=== PATIENT | female | born 1945 | race Caucasian/White ===

== ENCOUNTER 2017-08-26 17:30 | Inpatient (IN) | payer OTHER ==
[~2017-08-26] VITALS: Ht 165.1 cm; Wt 84.1 kg
--- NOTE | ~2017-08-26 | EEG ---
[facility] [place] [address] ELECTROENCEPHALOGRAM Name: NOA AMARALDRA Daigle Room #: 436-P ADM IN M.R.#: [id number] Admission: 08/26/17 Attend Phys: Humble Linares MD Discharge: Date of : 41 Report #: [id number] THIS REPORT FOR: //name// CC: Humble Linares DATE OF SERVICE: 08/27/2017 This patient is being evaluated for possibility of dementia. EEG was done by placing the electrodes by standard 10/20 system of electrode placement. Both referential and sequential montages were used for recording. Background activity in this patient's EEG is about 10 Hz and 30 microvolts. It is a symmetrical activity. Photic stimulation was unremarkable. Throughout the record, no active epileptiform activity was noticed. A lot of artifact is present. IMPRESSION: In spite of the patient's history of altered mental status, the EEG appeared unremarkable. Thank you very much for this referral. <ELECTRONICALLY SIGNED> By: Jordan Norton MD 08/28/17 [id number] Jordan Norton MD /nt
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
--- NOTE | ~2017-08-26 | EKG ---
[address] [address] ELECTROCARDIOGRAM REPORT Name: KG AMARAL Room #: 436-P ADM IN M.R.#: [id number] Admission: 08/26/17 Attend Phys: Humble Linares MD Discharge: Date of : 41 Report #: [id number] THIS REPORT FOR: //name// [facility] Test Date: 2017-08-29 Test Time: 06:20:29 Pat Name: KG AMARAL Department: Room: 436 P Gender: F Client Delivery Manager: CHEYANNE : 1945 Requested By: Humble Linares Order Number: [id number] MD: Nikita Dorman Measurements Intervals [place] Rate: 72 P: 68 CA: 160 QRS: 20 QRSD: 119 T: 36 QT: 404 QTc: 443 Interpretive Statements Sinus rhythm Nonspecific intraventricular conduction delay Nonspecific repol abnormality, anterior leads Compared to ECG 06/22/2016 16:47:01 Early repolarization now present ST (T wave) deviation no longer present Possible ischemia no longer present Electronically Signed On 08-29-2017 8:14:33 [employer] by Nikita Dorman [email or web address] <ELECTRONICALLY SIGNED> By: Nikita Dorman MD 08/29/1714 9 9 Nikita Dorman MD /EPI
--- NOTE | ~2017-08-26 | HC ---
[facility] [place] [address] CONSULTATION Name: CRISTINKG S Room #: 436-P ADM IN M.R.#: [id number] Admission: 08/26/17 Attend Phys: Humble Linares MD Discharge: Date of : 41 Report #: [id number] THIS REPORT FOR: //name// CC: Humble Linares DATE OF SERVICE: 08/27/2017 This is a 71-year-old female patient who has a large record. I reviewed the patient's record and this is a pretty unusual and bizarre history which this patient had. This patient has been admitted to [facility] as well as [facility]. She had some history of dementia, but I am not sure about the history in this patient, although at one time, I had thought this patient may have had dementia also. She said she woke up confused. I am not sure what her baseline is. She is going to be on hospice. There is some question whether she wants to have the testing done or not done. She keeps flip flopping in that. REVIEW OF SYSTEMS: Positive that at one time, she was admitted with seizure. At one time, it looks like she had dementia. There is some history of subclavian steal syndrome, cholecystectomy, hypothyroidism, depression, fibromyalgia. She also has a history of disk problem. This was her relevant 14-point review of system. PAST MEDICAL HISTORY: Positive for seizure, but also appeared to be dementia. FAMILY HISTORY: Negative for early age stroke. SOCIAL HISTORY: She says she does not drink any alcohol. PHYSICAL EXAMINATION: Difficult. She does not know what month it is. She does not know what day it is. She says it is May, but her speech looks intact. Cranial nerve examination 2-12, she does not cooperate and I cannot tell, but I do not see any focal abnormality. It looks like she can move all 4 extremities and she says she can feel things. Her reflexes are symmetrical, but she said she cannot walk. She did not cooperate with the fundus examination. She is moderately built individual who does not have any dysmorphic features of eyes, ears and face. She can see and hear adequately. Her pulses are somewhat difficult to feel. She has no edema, cyanosis or jaundice. Cardiac examinations appear unremarkable. Her blood pressure is 110/65, respirations 14, pulse is 82, temperature is normal. LABORATORY DATA: Her white count is 6.7. She did not have initially any imaging study, but then looks like she is agreeable for that. IMPRESSION: Pretty difficult to form in this patient. The patient may have had another seizure or may have developed dementia or pseudodementia. She needs further workup if she will allow that. [address] [address] CONSULTATION Name: KG AMARAL Room #: 436-P [facility] IN ..#: [id number] Admission: 08/26/17 Attend Phys: Humble Linares MD Discharge: Date of : 41 Report #: [id number] RECOMMENDATION: I will recommend: 1. MRI. 2. EEG. 3. To complete the workup, we may even have to do spinal tap in this patient. 4. Psych consult, which is pending. 5. We will work with her and see how much workup she allows. Thank you very much for this referral. <ELECTRONICALLY SIGNED> By: Jordan Norton MD 08/28/17 1114 1521 1549 Jordan Norton MD /nt
[~2017-08-26 17:30] MED LIST: ACCUNEB SO1.25 MG/1 INH; ACCUNEB0.63 MG/3 INH; ADULT LOW DOSE81 MG PO; ADULT SUPPOSIT1 EACH RECTAL; ALBUTEROL2.5 MG/31 INH; ALPRAZOLAM 0.50.5 M1 PO; AMBIEN 10 MG TA10 MG; AMBIEN 10 MG TA10 MG PO; AMITRIPTYLINE H25 M2 PO; AMITRIPTYLINE H50 M2 PO; ASPIRIN EC81 M1 PO; AVAPRO300 MG; AVAPRO300 MG PO; BASE, PCCA RAPID1 GM PO; BYSTOLIC 5 MG5 M1 PO; CELEBREX 200 M200 MG PO; CIPROFLOXIN HC2.5 M1 OPHTHALMIC; CLOBETASOL PROP50 M1 TOP; CLOBETASOL PROP60 G3; COMBIVENT IH; COMPAZINE10 MG PO; COUMADIN 10MG T10 M1 PO; COUMADIN 2.5MG2.5 M1 PO; COUMADIN 5 MG TA5 M1; COUMADIN 5 MG TA5 M1 PO; COZAAR100 MG PO; CYMBALTA; CYMBALTA60 MG PO; DESYREL100 MG; DESYREL50 MG PO; DOXYCYCLINE 10100 M1 PO; DUCOLAX PO; DULCOLAX; EQUATE STOOL SOFTNER PO; FENTANYL PA12 MCG/HR TP; FENTANYL PA25 MCG/HR TRANSDERM; FLAGYL500 M1 PO; FLOMAX0.4 MG PO; FOLIC ACID1 MG; FOLIC ACID1 MG PO; FUROSEMIDE 40 M40 M1 PO; GLUCOPHAGE500 MG PO; HYDROCHLOROTHIA25 M1 PO; HYDROCODON-ACE1 EAC5 PO; HYDROCODON-ACE1 EAC7; HYDROXYZINE PAM25 M1 PO; IMURAN 50MG TAB50 M1 PO; INDERAL40 MG PO; IPRAT-ALBUT 0.5-3 ML INH; KLOR-CON 10 ER10 MEQ PO; KLOR-CON 1010 MEQ PO; KLOR-CON M2020 MEQ PO; LACTULOSE PO; LASIX 40 MG TAB40 M2 PO; LEVOTHYROXIN0.025 MG PO; LISINOPRIL20 MG PO; LORTAB 5 MG/5001 TAB PO; LOSARTAN-HCTZ1 EAC1 PO; METFORMIN HCL500 MG PO; NABUMETONE 750750 M1; NABUMETONE 750750 M1 PO; NASONEX17 GM; NASONEX17 GM NS; NEURONTIN 300M300 M2 PO; NICOTINE TRANSD14 M1 TRANSDERM; OMEPRAZOLE20 M2 PO; ORAL ANALGESIC9 GM TOP; OSTERA TABLET1 EACH PO; OXYGEN MISCELL; PRAVACHOL40 MG PO; PRILOSEC 20 MG20 MG PO; PRISTIQ100 MG PO; PROAIR HFA8.5 GM; PROAIR HFA8.5 GM IH; PROMETHAZINE12.5 M1 PO; PROPRANOLOL 1010 M1 PO; PROTONIX40 M1 PO; PROTONIX40 M2 PO; QUETIAPINE FUM100 MG; REGLAN 5 MG TAB5 MG PO; REMICADE 1100 MG/VIA IV; SEROQUEL 100 M100 M1 PO; SEROQUEL 25 MG25 M1 PO; SEROQUEL XR400 M1 PO; SEROQUEL400 MG PO; STELARA90 MG/1 ML SQ; STOOL SOFTENER1 EAC2 PO; STOOL SOFTENER50 MG PO; SYMBICORT160 MCG/4. INH; TAMSULOSIN HCL0.4 M1 PO; TENORMIN50 MG PO; TOPAMAX 25 MG T25 M1 PO; TOPROL XL50 MG; TRAMADOL 50 MG50 MG PO; TRAZODONE 100100 MG PO; TRAZODONE HCL50 MG PO; TRIAMCINOLONE 080 G3; TYLENOL325 MG PO; VICODIN 5-5001 EACH PO; VISTARIL 25 MG25 M1 PO; WOMEN'S LAXATIVE5 M1 PO; [UNRECOGNIZED DRUG - OTHER]; [UNRECOGNIZED DRUG - OTHER]; [UNRECOGNIZED DRUG - OTHER] PO
[2017-08-26 17:31] VITALS: BP 101/56
[2017-08-26 18:51] LABS: URINE BILIRUBIN NEGATIVE (Negative); URINE BLOOD NEGATIVE (Negative); URINE CLARITY SL CLOUDY; URINE COLOR YELLOW; URINE GLUCOSE-RANDOM* NEGATIVE (Negative); URINE KETONES TRACE (Negative); URINE NITRITE-REFLEX NEGATIVE (Negative); URINE PROTEIN (DIPSTICK) NEGATIVE (Negative); URINE SPECIFIC GRAVITY >= 1.030 (1.005-1.035); URINE UROBILINOGEN 0.2 E.U./dl (0.2-1.0)
[2017-08-26 18:56] LABS: URINE LEUKOCYTES-REFLEX TRACE (Negative)
[2017-08-26 20:21] LABS: ABSOLUTE NEUTROPHILS 2.7 thou/uL (1.4-8.2); EOSINOPHILS 5.8 % (0.0-3.0); HEMATOCRIT 37.4 % (37.0-47.0); HEMOGLOBIN 12.4 gm/dL (12.0-15.0); LYMPHOCYTES 47.2 % (24.0-44.0); MCH 27.3 pg (26.0-34.0); MCHC 33.2 g/dL (28.0-37.0); MCV 82.1 fL (80.0-100.0); MONOCYTES 5.5 % (1.0-8.0); PLATELET COUNT 229 thou/uL (150-400); POLYS 40.5 % (36.0-66.0); RBC 4.55 mil/uL (4.20-5.00); RDW 16.5 % (10.5-14.5); WBC 6.7 thou/uL (4.0-11.0)
[2017-08-26 20:28] LABS: ANION GAP 9 mmol/L (7-16); BUN 30 mg/dL (7-18); CALCIUM 9.1 mg/dL (8.5-10.1); CHLORIDE 102 mmol/L (98-107); CO2 25 mmol/L (21-32); CREATININE 1.7 mg/dL (0.6-1.0); GLUCOSE 109 mg/dL (74-106); POTASSIUM 4.9 mmol/L (3.5-5.1); SODIUM 136 mmol/L (136-145)
[2017-08-26 20:34] LABS: ALBUMIN 3.4 g/dL (3.4-5.0); DIRECT BILIRUBIN < 0.1 mg/dL (<0.1-0.3); SGOT 23 U/L (15-37); SGPT 34 U/L (30-65); TOTAL BILIRUBIN 0.3 mg/dL (<0.1-1.0)
[2017-08-26 23:14] LABS: BE(vivo) 0.3 mmol/L (-2 to +3); HCO3 25.1 mmol/L (22.0-26.0); PCO2 41.2 mmHg (35.0-45.0); PO2 73.7 mmHg (80.0-100.0); pH 7.402 (7.360-7.450); sO2 94.9 % (92.0-98.0)
[2017-08-26 23:44] VITALS: BP 123/79
[2017-08-27 10:27] VITALS: BP 110/65
[2017-08-27 16:00] VITALS: BP 110/65
[2017-08-27 16:58] LABS: TSH 1.814 uIU/mL (0.358-3.740)
[2017-08-27 21:00] VITALS: BP 129/72
[2017-08-28 04:00] VITALS: BP 114/71
[2017-08-28 04:10] VITALS: BP 146/57
[2017-08-28 08:00] VITALS: BP 129/58
[2017-08-28 08:39] LABS: ALBUMIN 3.6 g/dL (3.4-5.0); CALCIUM 9.5 mg/dL (8.5-10.1); CREATININE 1.2 mg/dL (0.6-1.0); POTASSIUM 4.5 mmol/L (3.5-5.1); TOTAL BILIRUBIN 0.7 mg/dL (<0.1-1.0); TOTAL PROTEIN 7.3 g/dL (6.4-8.2)
[2017-08-28 09:22] LABS: INR 1.2; PROTIME 12.4 Seconds (9.3-11.4)
[2017-08-28 16:05] VITALS: BP 148/76
[2017-08-28 19:37] VITALS: BP 153/60
[2017-08-29 04:59] VITALS: BP 145/80; BP 153/80
[2017-08-29 07:18] LABS: ALBUMIN 3.4 g/dL (3.4-5.0); CALCIUM 8.7 mg/dL (8.5-10.1); CREATININE 1.1 mg/dL (0.6-1.0); TOTAL BILIRUBIN 0.5 mg/dL (<0.1-1.0); TOTAL PROTEIN 6.8 g/dL (6.4-8.2)
[2017-08-29 08:00] VITALS: BP 155/93
[2017-08-29 09:22] LABS: HEMATOCRIT 36.3 % (37.0-47.0); HEMOGLOBIN 11.7 gm/dL (12.0-15.0); MCH 27.1 pg (26.0-34.0); MCHC 32.3 g/dL (28.0-37.0); MCV 83.8 fL (80.0-100.0); RBC 4.33 mil/uL (4.20-5.00); RDW 16.7 % (10.5-14.5); WBC 3.5 thou/uL (4.0-11.0)
[2017-08-29 09:44] LABS: APTT 29.9 Seconds (24.5-32.8); INR 1.1; PROTIME 11.6 Seconds (9.3-11.4)
[2017-08-29 12:55] LABS: CSF CLARITY CLEAR; CSF COLOR COLORLESS; VOLUME 9 ml
[2017-08-29 13:04] LABS: CSF GLUCOSE 64 mg/dL (40-70); CSF PROTEIN 34 mg/dL (15-45)
[2017-08-29 13:16] LABS: CSF RBC 0 /mm3; CSF WBC 1 /mm3 (0-10)
[2017-08-29 15:52] VITALS: BP 169/76
[2017-08-29 20:00] VITALS: BP 155/95
[2017-08-30 00:09] LABS: SERUM ALBUMIN 4.5 g/dL (3.5-4.8)
[2017-08-30 04:41] VITALS: BP 151/94
[2017-08-30 07:20] VITALS: BP 168/77
[2017-08-30 15:15] VITALS: BP 177/87
[2017-08-30 20:47] VITALS: BP 177/81
[2017-08-31 05:00] VITALS: BP 149/79
[2017-08-31 07:37] VITALS: BP 129/61
[2017-08-31 16:00] VITALS: BP 163/70
[2017-08-31 19:36] VITALS: BP 182/65
[2017-09-01 04:01] VITALS: BP 101/50
[2017-09-01 06:16] VITALS: BP 103/49
[2017-09-01 16:25] VITALS: BP 155/70
[2017-09-01 19:50] VITALS: BP 150/70
[2017-09-02 07:56] LABS: PROTIME 10.1 Seconds (9.3-11.4)
[2017-09-02 19:11] LABS: GLYCOHEMOGLOBIN (HGB A1C) 5.4 % (4.8-5.6)
[2017-09-02 21:45] VITALS: BP 146/71
[2017-09-03 04:52] VITALS: BP 141/85
[2017-09-03 08:00] VITALS: BP 153/79
[2017-09-03 16:27] VITALS: BP 152/64
[2017-09-03 19:09] VITALS: BP 155/73
[2017-09-03 20:27] VITALS: BP 139/82
[2017-09-04 05:07] VITALS: BP 142/71
[2017-09-04 09:54] VITALS: BP 125/56
[2017-09-04 15:23] VITALS: BP 147/42
[2017-09-04 20:28] VITALS: BP 173/68
[2017-09-05 05:19] VITALS: BP 102/57
[2017-09-05 05:21] LABS: HEMATOCRIT 41.2 % (37.0-47.0); HEMOGLOBIN 13.1 gm/dL (12.0-15.0); MCH 26.8 pg (26.0-34.0); MCHC 31.7 g/dL (28.0-37.0); MCV 84.5 fL (80.0-100.0); RBC 4.87 mil/uL (4.20-5.00); RDW 16.4 % (10.5-14.5); WBC 10.8 thou/uL (4.0-11.0)
[2017-09-05 05:25] LABS: INR 1.2; PROTIME 11.8 Seconds (9.3-11.4)
[2017-09-05 05:33] LABS: ALBUMIN 3.4 g/dL (3.4-5.0); CALCIUM 9.5 mg/dL (8.5-10.1); CREATININE 1.1 mg/dL (0.6-1.0); POTASSIUM 4.2 mmol/L (3.5-5.1); TOTAL BILIRUBIN 0.3 mg/dL (<0.1-1.0); TOTAL PROTEIN 7.2 g/dL (6.4-8.2)
[2017-09-05 08:05] VITALS: BP 131/59
[2017-09-05] MEDS ORDERED: TAMSULOSIN HCL0.4 MG PO (13:21)
[2017-09-05] MEDS ORDERED: ATENOLOL 50MG T50 MG PO (13:21)
[2017-09-05] MEDS ORDERED: TRAMADOL 50 MG50 MG PO (13:25)
[2017-09-05] MEDS ORDERED: NEURONTIN 300300 M1 PO (13:28)
[2017-09-05] MEDS ORDERED: TRAZODONE HCL50 MG PO (13:29)
[2017-09-05] MEDS ORDERED: QUETIAPINE FUM400 M1 PO (13:31)
[2017-09-05] MEDS ORDERED: BENZONATATE100 MG PO (13:33)
[2017-09-08 20:06] LABS: CSF IgG 1.9 mg/dL (0.0-8.6)
[2018-02-23] MEDS ORDERED: LISINOPRIL20 MG PO (14:08)
[2018-02-23] MEDS ORDERED: ALBUTEROL2.5 MG/31 INH (14:12)
[2018-02-23] MEDS ORDERED: LAXATIVE25 MG PO (14:14)
[2018-02-23] MEDS ORDERED: TYLENOL325 MG PO (14:14)
[2018-02-23] MEDS ORDERED: LINZESS290 MCG PO (14:15)
[2018-02-23] MEDS ORDERED: TENORMIN50 MG PO (14:56)
[2018-02-23] MEDS ORDERED: SYNTHROID25 MC1 PO (14:58)
[2018-02-23] MEDS ORDERED: FLOMAX0.4 MG PO (14:59)
[2018-02-23] MEDS ORDERED: TRAZODONE HCL100 MG PO (15:02)
[2018-05-13] MEDS ORDERED: PROTONIX40 M1 PO (18:55)
[2018-05-13] MEDS ORDERED: IPRAT-ALBUT 0.5-3 ML INH (18:56)
[2018-05-13] MEDS ORDERED: COLACE 100 MG100 MG PO (18:58)
[2018-05-13] MEDS ORDERED: CONSTULOSE10 GM/152 PO (18:59)
== END 2017-09-05 15:25 | DRG 885 ==
LOC: ER 17:30 → EROBS 20:14 → 4S 20:14 → EROBS 20:18 → 4S 08-27 16:53
PROVIDERS: Emergency Medicine; Internal Medicine; Psychiatry & Neurology Neuromuscular Medicine
PROC: 009U3ZX Drainage of Spinal Canal, Percutaneous Approach, Diagnostic (ICD-10-PCS; principal; 2017-08-29)
PROC: B01B1ZZ Fluoroscopy of Spinal Cord using Low Osmolar Contrast (ICD-10-PCS; principal; 2017-08-29)
DX: F31.9 Bipolar disorder, unspecified (principal); G30.9 Alzheimer's disease, unspecified; E86.0 Dehydration; F41.9 Anxiety disorder, unspecified; E03.9 Hypothyroidism, unspecified; M19.90 Unspecified osteoarthritis, unspecified site; I12.9 Hypertensive chronic kidney disease with stage 1 through stage 4 chronic kidney disease, or unspecified chronic kidney disease; F01.50 Vascular dementia, unspecified severity, without behavioral disturbance, psychotic disturbance, mood disturbance, and anxiety; I48.91 Unspecified atrial fibrillation; J44.9 Chronic obstructive pulmonary disease, unspecified; G89.4 Chronic pain syndrome; E11.22 Type 2 diabetes mellitus with diabetic chronic kidney disease; G47.00 Insomnia, unspecified; M48.02 Spinal stenosis, cervical region; F22 Delusional disorders; L40.9 Psoriasis, unspecified; Z66 Do not resuscitate; F02.80 Dementia in other diseases classified elsewhere, unspecified severity, without behavioral disturbance, psychotic disturbance, mood disturbance, and anxiety; Z88.1 Allergy status to other antibiotic agents; Z88.0 Allergy status to penicillin; Z88.8 Allergy status to other drugs, medicaments and biological substances; Z88.2 Allergy status to sulfonamides; Z87.891 Personal history of nicotine dependence; Z90.49 Acquired absence of other specified parts of digestive tract; Z90.13 Acquired absence of bilateral breasts and nipples; Z86.718 Personal history of other venous thrombosis and embolism; Z90.710 Acquired absence of both cervix and uterus; Z86.73 Personal history of transient ischemic attack (TIA), and cerebral infarction without residual deficits; Z79.899 Other long term (current) drug therapy; N18.3 Chronic kidney disease, stage 3 (moderate)
CPT/HCPCS: 10100; 10102

== ENCOUNTER 2017-11-29 21:48 | Emergency (ER) | payer OTHER ==
[~2017-11-29] VITALS: Ht 165.1 cm; Wt 81.7 kg
[~2017-11-29 21:48] MED LIST changes: +ATENOLOL 50MG T50 MG PO; +BENZONATATE100 MG PO; +NEURONTIN 300300 M1 PO; +QUETIAPINE FUM400 M1 PO; +TAMSULOSIN HCL0.4 MG PO
[2017-11-29] MEDS ORDERED: COUMADIN 2.5MG2.5 M1 PO (22:13)
[2017-11-30] MEDS ORDERED: KRISTALOSE20 GM PO (00:51)
[2017-11-30 01:11] VITALS: BP 154/85
== END 2017-11-30 01:00 | disposition home or self-care (01) ==
LOC: ER 21:48
DX: R09.89 Other specified symptoms and signs involving the circulatory and respiratory systems (principal); K21.9 Gastro-esophageal reflux disease without esophagitis; E11.9 Type 2 diabetes mellitus without complications; I10 Essential (primary) hypertension; M79.7 Fibromyalgia; E03.9 Hypothyroidism, unspecified; Z90.49 Acquired absence of other specified parts of digestive tract; Z90.710 Acquired absence of both cervix and uterus; Z87.891 Personal history of nicotine dependence; Z88.1 Allergy status to other antibiotic agents; Z88.0 Allergy status to penicillin; Z88.2 Allergy status to sulfonamides

== ENCOUNTER → 2018-02-25 | Outpatient (CLI) | payer OTHER ==
[~2018-02-25] VITALS: Ht 165.1 cm; Wt 86.2 kg
[~2018-02-25] MED LIST changes: +KRISTALOSE20 GM PO; +LAXATIVE25 MG PO; +LINZESS290 MCG PO; +SYNTHROID25 MC1 PO; +TRAZODONE HCL100 MG PO
--- NOTE | ~2018-02-25 | PATH ---
[facility] [address] [place] [address] PATHOLOGY RPT PROCEDURE Name: TORI AMARLA Room #: REG STEPHANIA Kaufman#: [id number] Admission: 02/25/18 Date of : 41 Discharge: Report #: [id number] Path Case #: [id number] [facility] Accession Number: [id number] . 01 Material submitted: . DISTAL ESOPHAGUS BIOPSY . 01 Clinical history: . Pre-OP DX: Dysphagia Post-OP DX: Rule out Murphy's esophagus . 02 Diagnosis: Gastroesophageal mucosa, distal esophagus rule out Murphy's, endoscopic biopsy: - Gastric cardia-type mucosa with moderate chronic inflammation. - Negative for intestinal metaplasia (Murphy's metaplasia) or dysplasia. - Squamous mucosa with mild esophagitis and changes compatible with reflux esophagitis. (IUV:pit; 02/26/2018) QTP/02/26/2018 . 02 Electronically signed: . Ariana Obrien MD, Pathologist NPI- [id number] . 01 Gross description: . Received in formalin labeled "Alison Amarala, distal esophagus BX, rule out Murphy's," are 2 segments of lakhani soft tissue measuring 0.7 x 0.3 x 0.2 cm in aggregate dimensions and ranging from 0.3 to 0.4 cm in maximum dimension. The specimen is submitted entirely in cassette A1. (TSD; 02/25/2018) TOB/TOB . 02 Pathologist provided ICD-10: K21.0 . 02 CPT . 012426 Performed at: [address], [place], [place] [id number] MD Harvey Peck MD Phone: [phone] Performed at: [address] [id number] MD Ariana Obrien MD Phone: [phone]
--- NOTE | ~2018-02-25 | P ---
[facility] [place] [address] PROCEDURE REPORT Name: KG AMARAL [id number] Admission: 02/25/18 Attend Phys: Alberto Bhakta Discharge: Date of : 43 Report #: [id number] THIS REPORT FOR: //name// CC: Alberto Linares MD DATE OF SERVICE: 02/25/2018 PROCEDURE PERFORMED: Upper endoscopy with biopsies and esophageal dilation. HISTORY OF PRESENT ILLNESS: The patient is a 72-year-old female seen in the office on 02/10/2018, with complaints of chronic constipation, also with a history of gastroesophageal reflux disease and intermittent dysphagia, especially to pills. Plan is for upper endoscopy. She currently takes Protonix on a daily basis. She is also on Coumadin. This has been held. Her INR today is 1.0. PROCEDURE: The risks and benefits of the procedure were explained to the patient, those risks including, but not limited to bleeding, perforation and the risk of sedation. She understood these risks and gave informed consent. Sedation was given using propofol per anesthesia. Next, using a standard Olympus upper endoscope, the scope was placed in the patient's mouth and advanced under direct vision through the esophagus, stomach and into the second portion of the duodenum. The larynx was normal in appearance. The upper and mid esophagus was normal. At the GE junction, a possible tiny segment of Murphy's was noted extending approximately 5 mm above the GE junction. Biopsies were obtained to rule out Murphy's esophagus. There was no evidence of esophagitis or stricture. Overall, the gastric mucosa was normal. The pylorus was normal and patent. The duodenal bulb, first and second portion were all normal. The scope was then brought back up into the patient's stomach and a Savary guidewire was inserted through the scope, leaving the guidewire in place as the scope was then withdrawn. Next, 48-Belgian Savary dilation of the esophagus was then performed without difficulty. The wire and dilator were removed. The scope was reintroduced into the patient's stomach. There was no evidence of mucosal tear after dilation. The scope was then withdrawn and the procedure terminated. The patient tolerated the procedure well. IMPRESSION: 1. 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 2. Otherwise, normal upper endoscopy. RECOMMENDATIONS: 1. Await biopsy results. 2. Observe the patient post-dilation. [address] [address] PROCEDURE REPORT Name: KG AMARAL Room #: REG CLLester Kaufman#: [id number] Admission: 02/25/18 Attend Phys: Alberto Bhakta Discharge: Date of : 43 Report #: [id number] Thank you for allowing me to participate in her care. By: 1046 1553 Alberto Edmondson MD /nt
[2018-02-25 09:58] LABS: PROTIME 10.5 Seconds (9.3-11.4)
== END | disposition home or self-care (01) ==
LOC: GI 08:27
PROVIDERS: Specialist
DX: K29.50 Unspecified chronic gastritis without bleeding (principal); K21.9 Gastro-esophageal reflux disease without esophagitis; Z79.899 Other long term (current) drug therapy; F41.9 Anxiety disorder, unspecified; J43.9 Emphysema, unspecified; Z87.891 Personal history of nicotine dependence; F31.9 Bipolar disorder, unspecified; Z90.710 Acquired absence of both cervix and uterus; I10 Essential (primary) hypertension; M79.7 Fibromyalgia; G45.8 Other transient cerebral ischemic attacks and related syndromes; M19.90 Unspecified osteoarthritis, unspecified site; Z86.73 Personal history of transient ischemic attack (TIA), and cerebral infarction without residual deficits; Z85.841 Personal history of malignant neoplasm of brain; E11.51 Type 2 diabetes mellitus with diabetic peripheral angiopathy without gangrene; I25.119 Atherosclerotic heart disease of native coronary artery with unspecified angina pectoris; E78.5 Hyperlipidemia, unspecified
CPT/HCPCS: 62110; 62900

== ENCOUNTER 2019-01-11 23:45 | Emergency (ER) | payer OTHER ==
[~2019-01-11] VITALS: Ht 165.1 cm; Wt 90.7 kg
[~2019-01-11 23:45] MED LIST changes: +COLACE 100 MG100 MG PO; +CONSTULOSE10 GM/152 PO
[2019-01-12 02:54] VITALS: BP 102/62
== END 2019-01-12 02:55 | disposition home or self-care (01) ==
LOC: ER 23:45
DX: R13.10 Dysphagia, unspecified (principal); E11.9 Type 2 diabetes mellitus without complications; F31.9 Bipolar disorder, unspecified; F41.9 Anxiety disorder, unspecified; E03.9 Hypothyroidism, unspecified; I10 Essential (primary) hypertension; M79.7 Fibromyalgia; M19.90 Unspecified osteoarthritis, unspecified site; I25.10 Atherosclerotic heart disease of native coronary artery without angina pectoris; I73.9 Peripheral vascular disease, unspecified; E78.5 Hyperlipidemia, unspecified; Z87.891 Personal history of nicotine dependence; Z88.8 Allergy status to other drugs, medicaments and biological substances; Z90.49 Acquired absence of other specified parts of digestive tract; Z98.890 Other specified postprocedural states; Z90.89 Acquired absence of other organs; Z88.1 Allergy status to other antibiotic agents; Z91.048 Other nonmedicinal substance allergy status; Z88.2 Allergy status to sulfonamides; Z88.5 Allergy status to narcotic agent; Z88.6 Allergy status to analgesic agent; Z85.3 Personal history of malignant neoplasm of breast; Z90.13 Acquired absence of bilateral breasts and nipples

== ENCOUNTER → 2019-01-22 | Outpatient (CLI) | payer OTHER ==
[~2019-01-22] VITALS: Ht 165.1 cm; Wt 91.6 kg
[~2019-01-22] MED LIST changes: +ONDANSETRON HCL4 M2 PO; +PRESERVISION A1 EAC2 PO; +VITAMIN D5000 UNIT PO
[2019-01-22 09:52] LABS: INR 1.1; PROTIME 11.8 Seconds (9.3-11.4)
--- NOTE | 2019-01-27 08:23 | P ---
[facility] [place] [address] PROCEDURE REPORT Name: KG AMARAL Room #: REG [facility]#: [id number] Admission: 01/22/19 ������������������ Attend Phys: Alberto Bhakta Discharge: ������������������ Date of : 43 Report #: [id number] THIS REPORT FOR: //name// CC: Alberto Linares MD DATE OF SERVICE: 01/22/2019 PROCEDURE PERFORMED: Upper endoscopy with biopsies and esophageal dilation. HISTORY OF PRESENT ILLNESS: The patient is a 73-year-old female with recurrent dysphagia. She underwent an EGD with dilation by myself on 02/25/2018. She reports benefit from the dilation for several months, but then has recurrent symptoms typically to meat and pills. She also complains of hoarseness at times. She is actually scheduled to see an ENT physician next Friday. Biopsies for possible Murphy's were negative last year. Plan is for repeat upper endoscopy with dilation. DESCRIPTION OF PROCEDURE: The risks and benefits of the procedure were explained to the patient, those risks including but not limited to bleeding, perforation and the risk of sedation. She understood these risks and gave informed consent. Sedation was given using propofol per anesthesia. Next, using a standard Olympus upper endoscope, the scope was placed in the patient's mouth and advanced under direct vision through the esophagus, stomach and into the second portion of the duodenum. No obvious abnormalities of the larynx were noted, but the visualization was somewhat limited. Overall, the esophagus was normal. The GE junction was normal. No stricture or narrowing, no evidence of reflux esophagitis. The patient does take Protonix on a daily basis. I did obtain several biopsies of the esophagus to rule out the possibility of eosinophilic esophagitis. Overall, the gastric mucosa was normal. The pylorus was normal and patent. The duodenal bulb, first and second portion were all normal. The scope was then brought back up into the patient's stomach and a Savary guidewire was inserted through the scope, leaving the wire in place as the scope was then withdrawn. Next, a 51-Finnish Savary dilation was performed without difficulty. The wire and dilator removed. The scope was reintroduced back into the patient's stomach. There was no evidence of mucosal tear after dilation. The scope was then withdrawn and the procedure terminated. The patient tolerated the procedure well. IMPRESSION: Normal upper endoscopy, status post dilation as described above. RECOMMENDATIONS: 1. Observe the patient post-dilation. 2. Continue PPI therapy. 3. If no improvement or recurrent dysphagia in the near future, could consider [address] [address] PROCEDURE REPORT Name: CRISTINKG S Room #: REG STEPHANIA Kaufman#: [id number] Admission: 01/22/19 ������������������ Attend Phys: Alberto Bhakta Discharge: ������������������ Date of : 41 Report #: [id number] a video swallow test as well as possible esophageal manometry. Thank you for allowing me to participate in her care. ��������������������������������������������� <ELECTRONICALLY SIGNED> ���������������������������������������� By: Alberto Edmondson MD ��������������������������������������������� 01/27/19 0823 1013 0038 Alberto Edmondson MD /nt
--- NOTE | 2019-01-27 09:26 | PATH ---
[facility] [address] [place] [address] PATHOLOGY RPT PROCEDURE Name: TORI AMARAL Room #: REG STEPHANIA Kaufman#: [id number] ������������������ Admission: 01/22/19 ������������������ Date of : 41 Discharge: Report #: [id number] Path Case #: [id number] [facility] Accession Number: [id number] . 01 Material submitted: . esophagus - BX OF ESOPHAGITIS R/O EOSINOPHILIC ESOPHAGITIS . 01 Clinical history: . Pre-OP DX: Dysphagia Post-OP DX: Dysphagia Rule out eosinophilic esophagitis . 02 Diagnosis: Squamous mucosa, esophagitis, rule out eosinophilic esophagitis, endoscopic biopsy: - Mild active esophagitis with occasional eosinophils (1 to 2/HPF). - Negative for intestinal metaplasia or dysplasia. . (IUV:mml; 01/25/2019) QLM/01/26/2019 . 02 Electronically signed: . Ariana Obrien MD, Pathologist NPI- [id number] . 01 Gross description: . Received in formalin labeled "Tori Amaral, BX of esophagitis," are 3 segments of lakhani soft tissue measuring 0.6 x 0.6 x 0.1 cm in aggregate dimensions and ranging from 0.2 to 0.5 cm in maximum dimension. The specimen is submitted entirely in cassette A1. (TSD; 01/22/2019) TOB/TOB . 02 Pathologist provided ICD-10: K20.9 . 02 CPT . 092245 Specimen Comment: A courtesy copy of this report has been sent to Specimen Comment: [phone], . Specimen Comment: Report sent to / DR ROLLE Specimen Comment: A duplicate report has been generated due to demographic updates. Performed at: [address] [id number] MD Harvey Peck MD Phone: [phone] [address] [place] [address] PATHOLOGY RPT PROCEDURE Name: TORI AMARAL Room #: REG STEPHANIA Kaufman#: [id number] ������������������ Admission: 01/22/19 ������������������ Date of : 43 Discharge: Report #: [id number] Path Case #: [id number] Performed at: [address] [id number] MD Ariana Obrien MD Phone: [phone]
== END | disposition home or self-care (01) ==
LOC: GI 07:28
PROVIDERS: Specialist
DX: K20.0 Eosinophilic esophagitis (principal); R13.19 Other dysphagia; K21.9 Gastro-esophageal reflux disease without esophagitis; I10 Essential (primary) hypertension; J43.9 Emphysema, unspecified; F41.9 Anxiety disorder, unspecified; I73.9 Peripheral vascular disease, unspecified; M79.7 Fibromyalgia; E11.9 Type 2 diabetes mellitus without complications; E03.9 Hypothyroidism, unspecified; F31.9 Bipolar disorder, unspecified; M19.90 Unspecified osteoarthritis, unspecified site; Z90.49 Acquired absence of other specified parts of digestive tract; Z86.718 Personal history of other venous thrombosis and embolism; Z68.33 Body mass index [BMI] 33.0-33.9, adult; Z87.891 Personal history of nicotine dependence; Z79.01 Long term (current) use of anticoagulants; Z85.3 Personal history of malignant neoplasm of breast; Z90.711 Acquired absence of uterus with remaining cervical stump; Z98.41 Cataract extraction status, right eye; Z98.42 Cataract extraction status, left eye; Z98.0 Intestinal bypass and anastomosis status; Z86.73 Personal history of transient ischemic attack (TIA), and cerebral infarction without residual deficits; Z88.0 Allergy status to penicillin; Z88.2 Allergy status to sulfonamides; Z88.8 Allergy status to other drugs, medicaments and biological substances; Z79.899 Other long term (current) drug therapy; Z79.82 Long term (current) use of aspirin
CPT/HCPCS: 62110; 62900

== ENCOUNTER 2019-09-23 12:24 | Inpatient (IN) | payer OTHER ==
[~2019-09-23] VITALS: Ht 160 cm; Wt 89.4 kg
--- NOTE | ~2019-09-23 | H ---
[facility] [address] HISTORY AND PHYSICAL Name: CRISTINKG S Room #: 436-P ADM IN M.R.#: [id number] Admission: 09/23/19 Attend Phys: Humble Linares MD Discharge: Date of : 43 Report #: [id number] THIS REPORT FOR: //name// CC: Humble Linares DATE OF SERVICE: 09/23/2019 CHIEF COMPLAINT: Severe tremors, dehydration with PAMELA. HISTORY OF PRESENT ILLNESS: The patient was shaking so badly this morning, she could hardly walk. Over the last couple of weeks, her baseline essential tremor has become progressively more severe. She could not do anything other than come to the Emergency Room for further evaluation and interventions. In the Emergency Room, a complete evaluation was negative except for an elevation in her creatinine from a baseline of 1.1-2.3. Her BUN baseline of 14 was increased to 31. Her AST was mildly elevated at 81 compared with the baseline of 33. Her albumin was concentrated at 4.3 compared with the baseline of 3.4. Hemoglobin was 13.4 with the baseline of 11.8. Her urinalysis was completely clear. On my exam tonight, her oropharynx is dry and there is only mild edema in her legs. Important additional information is that when she was seen in the office a month ago, she had significant edema in both of her legs and furosemide 40 mg 1 a day or 2 per day as needed for swelling control was renewed. Also important, about 2 weeks ago, her gabapentin prescription was increased from 300 mg 4 times a day to 600 mg 4 times a day, and this is the most likely culprit for increased tremors. The resolution of her edema and furosemide use in addition to reduced oral intake because of the tremors are the most likely causes for the elevation in creatinine. She has a long complex medical history that has been actually pretty stable recently: She sees Dr. Palmer once monthly for irrigation of her Port-A-Cath, routine laboratory monitoring of her Stelara, and every 3 months she is given a Stelara injection for her psoriatic arthritis and psoriasis. With Stelara, her symptoms are quite well controlled. She uses gabapentin to help control her chronic pain. She has fibromyalgia and widespread areas of pain generators, as well as her psoriatic arthritis as sources of pain. She has had bilateral deep venous thromboses on several occasions with a pulmonary embolus as well and for this reason is maintained on chronic anticoagulation using warfarin. She is not able to afford a novel anticoagulant agent. She has diffuse vascular disease. 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 Debbie Iverson. Stools for hidden blood were positive 07/27/2019, a colonoscopy 05/26/2015 at [facility] was negative except for a few internal hemorrhoids. She had rectal ulcers on colonoscopy the year before, and in 2004, she had 2 small hyperplastic polyps. EGD was negative and she was dilated for dysphasia 02/01/2019 at [facility]. She has type 2 diabetes, diet controlled with recent A1c of 6.5. CURRENT MEDICATIONS: Aspirin 81 mg daily; lisinopril 10 mg if her blood pressure is high; atenolol 50 mg if her blood pressure is high; gabapentin 600 mg 4 times daily, was increased 2 weeks ago from 300 mg 4 times daily; tamsulosin 1 at 10 in the morning; levothyroxine one in the morning at 10; pantoprazole 40 mg at 10 in the evening because it helps prevent her choking during the nighttime; Tessalon Perles as needed for cough; warfarin 5 mg tablets are adjusted monthly with her currently taking one-half tablet 7 days a week; nebulizer, ipratropium albuterol once or twice daily as needed; quetiapine 400 mg extended release at 4:30 p.m. daily for her bipolar disease; trazodone 150 mg or 200 mg at bedtime, prescribed by Dr. Iverson; Tramadol 50 mg every 12 hours as needed; alprazolam 0.5 mg every 12 hours or up to 3 times a day, prescribed by Dr. Iverson, and she usually takes a dose at bedtime; stool softener as needed, lactulose 60 mL as needed; Linzess 290 mcg once daily as needed and metformin 500 mg up to 3 times a day for her diabetes. ALLERGIES: Listed as PENICILLIN, MACRODANTIN, CIPRO, ERYTHROMYCIN, SULFA and NITROFURANTOIN. Note is made that she tolerate azithromycin well. ADDITIONAL MEDICATION: Furosemide 40 mg 1-2 daily as needed for swelling in her legs. REVIEW OF SYSTEMS: Stable otherwise, with the exception of her tremors. She has been feeling well and the furosemide has helped her edema improve. PHYSICAL EXAMINATION: GENERAL: Shows a 73-year-old female who has significant tremors in her hospital bed. She notes that she has not had any gabapentin so far today and that her tremors are much improved. Her oropharynx is dry. She is awake and alert and oriented and able to give a meaningful history. CARDIOVASCULAR: Her heart tones are normal and the rhythm is regular. LUNGS: Clear. ABDOMEN: Soft and nontender, without hepatosplenomegaly or masses. EXTREMITIES: The lower legs have less edema than last month in the office, now only about 1+ at the calf. Her intention tremor is quite variable during my [facility] [address] [place] [address] HISTORY AND PHYSICAL Name: KG AMARAL Room #: 436-[facility] IN [facility]#: [id number] Admission: 09/23/19 Attend Phys: Humble Linares MD Discharge: Date of : 41 Report #: [id number] exam. Her laboratory data recorded above, highlights are repeated here: Her BUN is 31 compared with the baseline of 14 and her creatinine is 2.3 compared with the baseline of 1.1. ASSESSMENT: 1. Acute dehydration with PAMELA or perhaps a normal renal response. 2. Marked tremors as an adverse response to a recent increase in her gabapentin, and unable to walk and care for herself. 3. Baseline essential tremors. 4. Stable bipolar disease on medication. 5. Chronic obstructive pulmonary disease. 6. History of deep venous thrombosis and pulmonary emboli. 7. Psoriasis and psoriatic arthritis, well controlled by Dr. Palmer. 8. HTN. 9. DM II 10. Other medical problems as mentioned above. PLAN: The patient is admitted and given IV fluids. Her gabapentin will be restarted at the previous dose of 300 mg 4 times a day later on in this hospital stay. Her laboratory will be rechecked again in the morning. Her INR will be checked in the morning. She will have therapies evaluate her tomorrow. patient services coordinator is being asked to look in to home Android [employer] machine to save her trips to my office as transportation is an issue for her. By: 2258 2321 Humble Linares MD /nt
--- NOTE | ~2019-09-23 | EKG ---
[facility] [place] [address] ELECTROCARDIOGRAM REPORT Name: NOA AMARALDRA Pilo Room #: [facility]..#: [id number] Admission: Attend Phys: Discharge: Date of : 41 Report #: [id number] THIS REPORT FOR: cc: Humble Linares MD, Stanley P. MD Epiphany, Epiphany MD ~ THIS REPORT FOR: //name// [facility] ED Test Date: 2019-09-23 Test Time: 12:48:17 Pat Name: KG AMARAL Department: Room: Gender: F [facility] 1945 Requested By: Tim Lassiter Order Number: [id number] MD: Measurements Intervals [place] Rate: 96 P: SD: QRS: 16 QRSD: 97 T: 145 QT: 378 QTc: 478 Interpretive Statements Atrial flutter with varied AV block, Low voltage, precordial leads Borderline repolarization abnormality Baseline wander in lead(s) V3 Compared to ECG 05/13/2018 18:17:20 Low QRS voltage now present Sinus rhythm no longer present ST (T wave) deviation no longer present [email or web address] By: 1248 1248 Epiphany [place], [place] /[facility]
[2019-09-23 12:39] VITALS: BP 163/78
[2019-09-23 12:45] LABS: URINE BILIRUBIN NEGATIVE (Negative); URINE BLOOD NEGATIVE (Negative); URINE CLARITY CLEAR; URINE COLOR YELLOW; URINE GLUCOSE-RANDOM* NEGATIVE (Negative); URINE KETONES NEGATIVE (Negative); URINE LEUKOCYTES-REFLEX NEGATIVE (Negative); URINE NITRITE-REFLEX NEGATIVE (Negative); URINE PROTEIN (DIPSTICK) NEGATIVE (Negative); URINE UROBILINOGEN 0.2 E.U./dl (0.2-1.0)
[2019-09-23 14:22] LABS: ABSOLUTE NEUTROPHILS 5.2 thou/uL (1.4-8.2); BASOPHILS 0.8 % (0.0-2.0); EOSINOPHILS 2.4 % (0.0-3.0); HEMATOCRIT 43.1 % (37.0-47.0); HEMOGLOBIN 13.4 gm/dL (12.0-15.0); LYMPHOCYTES 24.3 % (24.0-44.0); MCH 26.4 pg (26.0-34.0); MCHC 31.1 g/dL (28.0-37.0); MCV 84.7 fL (80.0-100.0); MONOCYTES 7.7 % (1.0-8.0); PLATELET COUNT 137 thou/uL (150-400); POLYS 64.8 % (36.0-66.0); RBC 5.09 mil/uL (4.20-5.00); RDW 16.3 % (10.5-14.5)
[2019-09-23 14:31] LABS: CREATININE 2.3 mg/dL (0.6-1.0); POTASSIUM 3.7 mmol/L (3.5-5.1)
[2019-09-23 14:38] LABS: ALBUMIN 4.3 g/dL (3.4-5.0); TOTAL BILIRUBIN 0.5 mg/dL (<0.1-1.0); TOTAL PROTEIN 9.1 g/dL (6.4-8.2)
[2019-09-23 16:33] VITALS: BP 190/75
[2019-09-23 16:51] VITALS: BP 185/69
[2019-09-23 17:30] VITALS: BP 153/94
[2019-09-23 19:20] VITALS: BP 159/67
--- NOTE | 2019-09-23 20:33 | NUR ---
AT 1745 PATIENT WAS RESING IN BED. ALERT XS 3 HAS FORGETFULNESS. ADMISSION PAPERWORK IN COMPUTER. PT HAS NO OPEN AREA'S. HAS PSORIASIS THAT SHE GETS TREATED FOR FOR HAS PORT ON RIGHT UPPER CHEST. HAD MED BOWEL MOVEMENT. USED BSC. IV FLUIDS INFUSING ORDERED. V.97.6 16 107 153/94 O2 SAT 97%RA. IS 5'3 AND WEIGHT= 180 LBS. PT STATES NO PAIN.
[2019-09-24 03:30] VITALS: BP 130/48
--- NOTE | 2019-09-24 04:55 | NUR ---
PT DENIED PAIN SO FAR.UP WITH SBA TO BSC.DR ROLLE HERE TO SEE PT,NEW ORDERS NOTED AND CARRIED OUT.PT CONT TO HAVE TREMORS.PT HAS R CHEST PORTHA CATH,PER DR ROLLE,PORT HAS TO BE ACCESSED TODAY AND HER IVF RUN THROUGH IT.BM NOTED THIS SHIFT.PT RESTING ON HER BED AT THIS TIME.FALL PRECAUTIONS IN PLACE,CALL LIGHT WITHIN REACH.
[2019-09-24 06:40] LABS: ALBUMIN 3.4 g/dL (3.4-5.0); CALCIUM 7.8 mg/dL (8.5-10.1); CREATININE 1.5 mg/dL (0.6-1.0); POTASSIUM 3.4 mmol/L (3.5-5.1); TOTAL BILIRUBIN 0.9 mg/dL (<0.1-1.0); TOTAL PROTEIN 6.8 g/dL (6.4-8.2)
[2019-09-24 07:30] VITALS: BP 158/75
[2019-09-24 09:18] LABS: INR 1.7; PROTIME 17.5 Seconds (9.3-11.4)
--- NOTE | 2019-09-24 11:07 | NUR ---
ASSUMED CARE OF THE PT AT 0700. PT IS STANDBY ASSIT TO BSC. C/O GENERALIZED BODY PAIN, CONTROLLED WITH PAIN MEDICATION, SEE EMAR. IV NURSE TO ASSESS CHEST PORT, R FOREARM IV DRY AND INTACT. PT IS VERY FORGETFUL. FALL PRECAUTIONS IN PLACE, BED IN LOWEST POSITION AND CALL LIGHT IS IWTHIN REACH. WILL CONTINUE TO MONITOR THE PT.
--- NOTE | 2019-09-24 14:02 | NUR ---
met with patient who reports she resides in [facility]. She reports she needs a new walker for home. She sees Dr Palmer monthly for [facility]. she lives in [place] and reports she does not drive. Transportation an issue. She reports her dtr Linda has frontal lobe dementia and she does not drive and cannot assist. Rec consult for protime machine or outpatient lab draws. This machine is ordered through [employer]. Sp with Jean at [facility]. He plans to bring form for machine for phys to complete. Will leave on chart. Patient agreeable to HH at de if ordered interested in [facility].
--- NOTE | 2019-09-24 14:41 | NUR ---
DISCHARGE PLANNING. DISCHARGE TO HOME WITH HOME HEALTH PLANNED FOR BEGINNING OF NEXT WEEK. PATIENT REFERRAL FAXED TO [facility] PER REQUEST. CALL PLACED TO [facility], SPOKE WITH ADRIANO. ADRIANO TO FACILITATE PATIENTS HH ONCE DISCHARGE/HH ORDERS RECEIVED. FOLLOWING
[2019-09-24 15:17] VITALS: BP 158/75
[2019-09-24 16:28] VITALS: BP 130/48
[2019-09-24 23:08] LABS: GLYCOHEMOGLOBIN (HGB A1C) 6.5 % (4.8-5.6)
[2019-09-25 00:20] VITALS: BP 106/31
--- NOTE | 2019-09-25 02:34 | NUR ---
PT WAS OBSERVED SITTINGG UP BY HER BEDSIDE EATING ICE CHIPS AT START OF SHIFT.PT DENIED PAIN SO FAR.UP WITH ASSIST X1,GAIT BELT AND WALKER TO THE BR.PT CONT ON IVF ORDERED.PT'S PORTHA CATH ACCESSED,IN USE NOW.DR ROLLE SAW PT AT START OF SHIFT,NEW ORDERS NOTED AND CARRIED OUT.PT RESTING ON HER BED AT THIS TIME.FALL PRECAUTIONS IN PLACE,CALL LIGHT WITHIN REACH.
[2019-09-25 05:20] VITALS: BP 118/56
[2019-09-25 07:30] VITALS: BP 145/62
--- NOTE | 2019-09-25 12:17 | NUR ---
PT'S ASSESSMENT HAS DONE, PT IS A&OX3, PT'S TREMOR AND PAIN HAVE IMPROVED,PT IS CONTINUING IV FLUID, PT GETS UP TO BATHROOM WITH ASSIST, PT'S VS AND BS ARE STABLE AT THIS TIME.
[2019-09-25 16:08] VITALS: BP 142/60
[2019-09-25 17:35] LABS: CALCIUM 7.1 mg/dL (8.5-10.1); CREATININE 1.1 mg/dL (0.6-1.0); POTASSIUM 3.8 mmol/L (3.5-5.1)
[2019-09-25 21:21] VITALS: BP 165/64
--- NOTE | 2019-09-26 02:46 | NUR ---
ASSESSMENT COMPLETED.PT DENIED PAIN SO FAR.TREMORS IMPROVED FROM ADMISSION.PT UP TO THE BR WITH SBA.BG MONITORED AND WAS 135 AT HS.PT STATED SHE FEELS MUCH BETTER AND IS READY TO DC.PT STATED THAT SHE WOULD NEED A ROLLING WALKER AND A VOUCHER ON DC.PT RESTING ON HER BED AT THIS TIME.FALL PRECAUTIONS IN PLACE,CALL LIGHT WITHIN REACH.
[2019-09-26 04:00] VITALS: BP 152/63
[2019-09-26 06:11] LABS: HEMATOCRIT 26.2 % (37.0-47.0); MCH 26.8 pg (26.0-34.0); MCHC 29.3 g/dL (28.0-37.0); RBC 2.86 mil/uL (4.20-5.00); RDW 16.5 % (10.5-14.5); WBC 3.9 thou/uL (4.0-11.0)
[2019-09-26 06:13] LABS: HEMOGLOBIN 7.7 gm/dL (12.0-15.0); MCV 91.6 fL (80.0-100.0)
[2019-09-26 06:21] LABS: INR 1.4
[2019-09-26 08:08] LABS: CALCIUM 7.5 mg/dL (8.5-10.1); CREATININE 1.1 mg/dL (0.6-1.0); POTASSIUM 3.6 mmol/L (3.5-5.1)
[2019-09-26 09:05] VITALS: BP 140/61
[2019-09-26 12:50] LABS: ABSOLUTE RETIC COUNT 0.071 10^6/uL; HEMATOCRIT 37.1 % (37.0-47.0); HEMOGLOBIN 11.2 gm/dL (12.0-15.0); MCH 26.1 pg (26.0-34.0); MCHC 30.2 g/dL (28.0-37.0); MCV 86.3 fL (80.0-100.0); OBSERVED RETIC COUNT 1.65 % (0.6-2.6); RBC 4.3 mil/uL (4.20-5.00); RDW 16.3 % (10.5-14.5); WBC 5.3 thou/uL (4.0-11.0)
[2019-09-26 12:58] LABS: % SATURATION 10 % (20-39); IRON 38 ug/dL (50-170); TIBC 374 ug/dL (250-450)
[2019-09-26 13:23] LABS: FOLIC ACID 12.5 ng/mL (8.6-58.9)
[2019-09-26 13:30] LABS: HEMATOCRIT 37.1 % (37.0-47.0); HEMOGLOBIN 11.4 gm/dL (12.0-15.0); MCH 26.5 pg (26.0-34.0); MCHC 30.7 g/dL (28.0-37.0); MCV 86.4 fL (80.0-100.0); RBC 4.29 mil/uL (4.20-5.00); RDW 16.5 % (10.5-14.5); WBC 4.8 thou/uL (4.0-11.0)
[2019-09-26 13:46] LABS: % SATURATION 10 % (20-39); IRON 42 ug/dL (50-170); TIBC 429 ug/dL (250-450)
[2019-09-26] MEDS ORDERED: OTHER MISCELL (17:12)
== END 2019-09-26 18:29 | disposition home health service (06) | DRG 92 ==
LOC: ER 12:24 → EROBS 16:23 → 4S 16:23
PROVIDERS: Emergency Medicine; ADMIT Internal Medicine
DX: G25.1 Drug-induced tremor (principal); N17.9 Acute kidney failure, unspecified; E86.0 Dehydration; I10 Essential (primary) hypertension; E78.5 Hyperlipidemia, unspecified; E11.9 Type 2 diabetes mellitus without complications; E03.9 Hypothyroidism, unspecified; Z90.13 Acquired absence of bilateral breasts and nipples; Z98.82 Breast implant status; L40.50 Arthropathic psoriasis, unspecified; F31.9 Bipolar disorder, unspecified; K64.8 Other hemorrhoids; J44.9 Chronic obstructive pulmonary disease, unspecified; T50.905A Adverse effect of unspecified drugs, medicaments and biological substances, initial encounter; F41.9 Anxiety disorder, unspecified; D64.9 Anemia, unspecified; M79.7 Fibromyalgia; M19.90 Unspecified osteoarthritis, unspecified site; I25.10 Atherosclerotic heart disease of native coronary artery without angina pectoris; I73.9 Peripheral vascular disease, unspecified; Z79.82 Long term (current) use of aspirin; Z79.899 Other long term (current) drug therapy; Z90.89 Acquired absence of other organs; Z90.49 Acquired absence of other specified parts of digestive tract; Z86.718 Personal history of other venous thrombosis and embolism; Z79.01 Long term (current) use of anticoagulants; Z98.42 Cataract extraction status, left eye; Z98.41 Cataract extraction status, right eye; Z90.710 Acquired absence of both cervix and uterus; Z88.1 Allergy status to other antibiotic agents; Z88.5 Allergy status to narcotic agent; Z88.0 Allergy status to penicillin; Z88.2 Allergy status to sulfonamides; Z88.8 Allergy status to other drugs, medicaments and biological substances; Z91.048 Other nonmedicinal substance allergy status; Z87.891 Personal history of nicotine dependence; Z86.711 Personal history of pulmonary embolism; Y92.89 Other specified places as the place of occurrence of the external cause
CPT/HCPCS: 10102

== ENCOUNTER 2020-04-02 14:17 | Inpatient (IN) | payer OTHER ==
[~2020-04-02] VITALS: Ht 165.1 cm; Wt 84.0 kg
[~2020-04-02 14:17] MED LIST changes: +OTHER MISCELL
[2020-04-02 14:25] VITALS: BP 166/63
[2020-04-02 15:11] LABS: BASOPHILS 0.4 % (0.0-2.0); EOSINOPHILS 0.7 % (0.0-3.0); HEMATOCRIT 32.6 % (37.0-47.0); HEMOGLOBIN 10.3 gm/dL (12.0-15.0); MCH 24.6 pg (26.0-34.0); MCHC 31.6 g/dL (28.0-37.0); MCV 77.9 fL (80.0-100.0); MONOCYTES 9.6 % (1.0-8.0); POLYS 64.3 % (36.0-66.0); RBC 4.19 mil/uL (4.20-5.00); RDW 17.6 % (10.5-14.5); WBC 6.2 thou/uL (4.0-11.0)
[2020-04-02 15:12] LABS: PLATELET COUNT 98 thou/uL (150-400)
[2020-04-02 15:26] LABS: ANION GAP 12 mmol/L (7-16); BUN 14 mg/dL (7-18); CALCIUM 7.4 mg/dL (8.5-10.1); CHLORIDE 97 mmol/L (98-107); CO2 27 mmol/L (21-32); CREATININE 1.4 mg/dL (0.6-1.0); GLUCOSE 102 mg/dL (74-106); POTASSIUM 3.7 mmol/L (3.5-5.1); SODIUM 136 mmol/L (136-145)
[2020-04-02 15:34] LABS: URINE BILIRUBIN NEGATIVE (Negative); URINE BLOOD NEGATIVE (Negative); URINE CLARITY CLEAR; URINE COLOR YELLOW; URINE GLUCOSE-RANDOM* NEGATIVE (Negative); URINE KETONES NEGATIVE (Negative); URINE LEUKOCYTES-REFLEX NEGATIVE (Negative); URINE NITRITE-REFLEX NEGATIVE (Negative); URINE PROTEIN (DIPSTICK) NEGATIVE (Negative); URINE UROBILINOGEN 0.2 E.U./dl (0.2-1.0)
--- NOTE | 2020-04-02 15:34 | NUR ---
YULI NUNES [phone] DAUGHTER CALLED AND THIS NURSE GAVE HER AN UPDATE TOLD HER WE WILL CALL HER WHEN WE HAVE MORE INFORMATION
[2020-04-02 15:36] LABS: ALBUMIN 3.6 g/dL (3.4-5.0); DIRECT BILIRUBIN 0.2 mg/dL (<0.1-0.2); SGOT 39 U/L (15-37); SGPT 29 U/L (30-65); TOTAL BILIRUBIN 0.7 mg/dL (0.2-1.0); TOTAL PROTEIN 7.3 g/dL (6.4-8.2); TROPONIN-I <0.06 ng/mL (<0.06)
[2020-04-02 17:14] VITALS: BP 165/76
[2020-04-03 00:07] VITALS: BP 180/70
[2020-04-03 06:25] LABS: CALCIUM 7.6 mg/dL (8.5-10.1); POTASSIUM 3.9 mmol/L (3.5-5.1)
--- NOTE | 2020-04-03 14:29 | NUR ---
THIS MECHANICAL ORDNANCE ASSEMBLER WAS CONTACTED BY PT.'S NURSE ABOUT THE PT. WANTING A MECHANICAL ORDNANCE ASSEMBLER VISIT. THIS MECHANICAL ORDNANCE ASSEMBLER NOTICED AND CONFIREMED THE PATIENT'S CURRENT MEDICAL CONDITION REGARDING ISOLATION. PATIENT IS TO BE MOVED TO 3W. NURSE WAS ASKED TO EXPLAIN TO PATIENT THE MECHANICAL ORDNANCE ASSEMBLER ON THAT UNIT CAN SPEAK TO HER BY TELEPHONE TOMORROW.
[2020-04-03 14:34] VITALS: BP 154/94
[2020-04-03 15:24] VITALS: BP 174/54
[2020-04-03 16:18] LABS: INR 3.7; PROTIME 37.7 Seconds (9.3-11.4)
[2020-04-03 16:28] VITALS: BP 172/57
--- NOTE | 2020-04-03 19:34 | NUR ---
PT ADMITTED FROM ER FOR WEAKNESS AND COVID POSITIVE, PT IS A&OX3, RN HAS CALLED DR TO REPORT ABNORMAL LAB RESULTS AND PT'S ANXIETY, NEW ORDER RECEIVED, PT IS ON COVID ISOLATION , PT DENIES PAIN AND SOB AT THIS TIME.
[2020-04-03 20:27] VITALS: BP 154/55
[2020-04-04] MEDS ORDERED: TRAMADOL 50 MG50 MG PO (01:27)
[2020-04-04 08:11] LABS: INR 2.7; PROTIME 27.9 Seconds (9.3-11.4)
--- NOTE | 2020-04-04 08:21 | NUR ---
PATIENT TALKED TO HER DAUGHTER OVER THE PHONE FOR A LONG TIME.PATIENT STATES"IF I MAKE SURE I BECAUSE I DON'T WANT TO COME BACK".DAUGHTER YULI ALSO INQUIRING ABOUT HOSPICE FOR HER MOM.
[2020-04-04 11:28] VITALS: BP 150/62
--- NOTE | 2020-04-04 12:00 | NUR ---
PT IS VERY ANXIOUS AND SAD. STATES SHE WILL PROBABLY TODAY. SUPPORT GIVEN
--- NOTE | 2020-04-04 15:51 | NUR ---
CM called pt's room to complete initial assessment and discuss d/c planning. Pt did not answer her room telephone; cm attempted to call 2x . CM spoke w/ pt's dtr, Linda, via telephone, to completed the initial assessment. According to Linda, pt lives alone in her apt. Pt is current with [facility] home health. CM spoke w/Talia to inform her pt has been hospitalized. Talia was aware - [phone]. Pt is independent with ADLS; however, Linda states she helps with showers. Pt has walker. Pt had a brief stay at [place] for skilled, but "she was there for two hours before we went to get her." Pt left d/t condition of facility, per Linda. Linda stated pt is waiting for dpoa paperwork, as she would like to change her agent. this cm gave dpoa form to 3w community engagement representative to have the pt's nurse provide to pt. this CM reached out to kaleigh ghosh to inform him of the situation. per Ben, he is not allowed in room and papers are not to be removed from room d/t Covid status. CM to cont to follow to assist as needed. -Note completed by Valeria Gibson
--- NOTE | 2020-04-04 16:00 | EKG ---
[facility] [place] [address] ELECTROCARDIOGRAM REPORT Name: NOA AMARALDRBelia Daigle Room #: 351-P ADM IN M.R.#: [id number] Admission: 04/02/20 Attend Phys: Bryan Arcos MD Discharge: Date of : 41 Report #: [id number] THIS REPORT FOR: cc: Humble Linares MD, Stanley P. MD Couchonnal, Luis F. MD ~ THIS REPORT FOR: //name// [facility] ED Test Date: 2020-04-02 Test Time: 14:48:25 Pat Name: KG AMARAL Department: Room: [facility] Gender: F Nicker And Breaker: Che : 1945 Requested By: Maribell Dodd Order Number: [id number] MD: Nikita Dorman Measurements Intervals [place] Rate: 69 P: 52 [place]: 182 QRS: 20 QRSD: 130 T: 31 QT: 438 QTc: 470 Interpretive Statements Sinus rhythm Nonspecific intraventricular conduction delay Borderline repolarization abnormality Compared to ECG 09/23/2019 12:48:17 Intraventricular conduction delay now present Atrial flutter no longer present ST (T wave) deviation no longer present Electronically Signed On 04-04-2020 16:00:46 CDT by Nikita Dorman [email or web address] <ELECTRONICALLY SIGNED> By: Nikita Dorman MD 04/04/20 1600 1448 1448 Nikita Dorman MD /EPI
[2020-04-04 19:40] VITALS: BP 144/82
--- NOTE | 2020-04-04 21:19 | NUR ---
PT RESTING IN BED WATCHING DEMOCRATIC SPEACHES. PT VERY SOFT SPOKEN, SLOW SPEECH. PT REPORTS BEING [place]. GOOD EYE CONTACT, FLAT AFFECT. PT SINGING [place] LOVES ME. PT TALKING ABOUT HOW SHE CARED FOR HER DYING FATHER AND MOTHER. PT REDIRECTED THAT SHE IS NOT GOING TO TONIGHT, DISCUSSED POSITIVE ASPECTS OF CONDITION TO FOCUS ON. PT REPOSITIONED PER HER REQUEST WITH MULTIPLE PILLOWS. COMPLIANT WITH MEDICATIONS, WAS ABLE TO VERBALIZE DOSING OF ALL HS MEDS. CERDA TO DD. LUNGS DIMINSISHED. O2 PER NC. IVF ANTIBIOTIC. PT REQUESTED PRN FOR ANXIETY WHEN LATE EVENING MEDICATION PROVIDED. BED ALARM ON.
[2020-04-05 04:52] VITALS: BP 162/76
[2020-04-05 08:14] VITALS: BP 179/58
[2020-04-05 09:03] LABS: ABSOLUTE NEUTROPHILS 2.7 thou/uL (1.4-8.2); BASOPHILS 0.1 % (0.0-2.0); EOSINOPHILS 0.1 % (0.0-3.0); HEMATOCRIT 33.1 % (37.0-47.0); HEMOGLOBIN 10.2 gm/dL (12.0-15.0); LYMPHOCYTES 20.8 % (24.0-44.0); MCH 24.1 pg (26.0-34.0); MCHC 30.7 g/dL (28.0-37.0); MCV 78.6 fL (80.0-100.0); MONOCYTES 7.4 % (1.0-8.0); PLATELET COUNT 114 thou/uL (150-400); POLYS 71.6 % (36.0-66.0); RBC 4.22 mil/uL (4.20-5.00); RDW 17.9 % (10.5-14.5); WBC 3.7 thou/uL (4.0-11.0)
[2020-04-05 09:05] LABS: INR 2.2; PROTIME 22.7 Seconds (9.3-11.4)
[2020-04-05 09:06] LABS: CALCIUM 7.3 mg/dL (8.5-10.1); CREATININE 0.9 mg/dL (0.6-1.0); POTASSIUM 3.6 mmol/L (3.5-5.1)
--- NOTE | 2020-04-05 14:01 | NUR ---
SW reviewed chart and spoke with nursing and attending physician. Pt is in Enhanced Isolation due to COVID-19. Pt is progressing towards goals for discharge. Discharge is anticipated for tomorrow. Therapy recommends home with HH. Pt is on service with Jan . SW faxed HH referral for review. SW updated HH liaison and notified of discharge timeframe. FRANCOIS placed call into pt's room. No answer. FRANCOIS placed call to pt's ashlirLinda ([phone]) No option to leave voice message. Plan is for pt to discharge home and resume HH services. FRANCOIS is following to assist as needed with discharge planning.
[2020-04-05 16:05] VITALS: BP 145/48
[2020-04-05 19:31] VITALS: BP 174/59
--- NOTE | 2020-04-05 23:28 | NUR ---
PT RESTING IN BED WATCHING TV. PT REPORTS PLANS FOR DC IN AM. ON ROOM AIR, LUNGS DIMINISHED IN THE BASES. ZAIDA TO ALLY. PT DISCUSSED HOW SHE WAS BORN WITH ANXIETY. GOOD EYE CONTACT, INTERMITTENT SMILING.
[2020-04-06] VITALS (9 sets, daily range): BP systolic 156–194; BP diastolic 58–90
[2020-04-06 06:34] LABS: INR 1.7; PROTIME 17.6 Seconds (9.3-11.4)
--- NOTE | 2020-04-06 11:12 | NUR ---
DISCHARGE NOTE: FRANCOIS reviewed chart and spoke with nursing and attending physician. Pt is in Enhanced Isolation due to COVID-19. Pt is medically stable for discharge home today. Attending physician discussed post-acute placement with pt this morning. Pt declines and will return home with services. FRANCOIS spoke with pt's dtr, Linda, via phone to provide update and discuss discharge plan. Linda is agreeable with plan and will provide transportation home later today. Awaiting finalized discharge orders/summary at this time. Will fax to Jan when available. FRANCOIS is following to finalize discharge.
[2020-04-06] MEDS ORDERED: LISINOPRIL10 MG PO (12:31)
[2020-04-06] MEDS ORDERED: LEVAQUIN 500 M500 M1 PO (12:31)
--- NOTE | 2020-04-06 18:16 | NUR ---
PT IS A&OX3, PT'S PAIN AND ANXIETY CAN CONTROL BY MEDICATIONS, RN HAS CALLED DR TO REPORT PT'S HIGH BP, DR HAS ADJUSTED PT'S BP MEDICATIONS, PT IS CONTINUING ISOLATION FOR POSITIVE COVID , PT MAY DC TO HOME WITH [facility] IF PT'S HIGH BP GETS IMPROVED.
[2020-04-07 03:06] LABS: GLYCOHEMOGLOBIN (HGB A1C) 5.9 % (4.8-5.6)
--- NOTE | 2020-04-07 04:16 | NUR ---
PT A&OX3. DENIES PAIN OR SOA. BP MONITORED AND MEDICATION GIVEN SEE EMAR. DTR CALLED AND THIS NURSE UPDATED ON PROGRESS. PT SLEPT THE NIGHT. BED BATH GIVEN ISOLATION MAINTAINED FOR COVID POSITIVE. FALL PREC IN PLACE AND CALL LIGHT IN REACH WILL CONT TO MONITOR
[2020-04-07 04:30] VITALS: BP 152/61
[2020-04-07 05:19] LABS: ABSOLUTE NEUTROPHILS 5.3 thou/uL (1.4-8.2); BASOPHILS 0.1 % (0.0-2.0); EOSINOPHILS 0.1 % (0.0-3.0); HEMATOCRIT 33.2 % (37.0-47.0); HEMOGLOBIN 10.2 gm/dL (12.0-15.0); LYMPHOCYTES 19.5 % (24.0-44.0); MCH 24.3 pg (26.0-34.0); MCHC 30.8 g/dL (28.0-37.0); MCV 78.8 fL (80.0-100.0); MONOCYTES 9.4 % (1.0-8.0); PLATELET COUNT 141 thou/uL (150-400); POLYS 70.9 % (36.0-66.0); RBC 4.21 mil/uL (4.20-5.00); RDW 18.7 % (10.5-14.5); WBC 7.4 thou/uL (4.0-11.0)
[2020-04-07 05:25] LABS: CALCIUM 7.7 mg/dL (8.5-10.1); POTASSIUM 3.2 mmol/L (3.5-5.1)
[2020-04-07 05:26] LABS: INR 1.9; PROTIME 19.3 Seconds (9.3-11.4)
[2020-04-07 07:51] VITALS: BP 172/75
[2020-04-07] MEDS ORDERED: BENAZEPRIL HCL20 MG PO (11:14)
[2020-04-07 11:21] VITALS: BP 145/56
[2020-04-07 12:39] VITALS: BP 183/66
--- NOTE | 2020-04-07 13:37 | NUR ---
DISCHARGE NOTE: SW reviewed chart and spoke with nursing. Pt is medically stable to discharge home today with HH services. Pt is in Enhanced Isolation due to COVID-19. SW faxed finalized discharge orders/summary to Jan . SW notified HH liaison of pt's discharge. Pt's dtr to provide transportation home later today. Contact info for HH placed in pt's discharge summary. No additional SW needs identified at this time, but is available to assist should needs arise.
[2020-04-07 14:56] VITALS: BP 184/75
--- NOTE | 2020-04-07 14:57 | NUR ---
ASSUMED CARE OF PT AT 0700. PT AOX3, ANXIOUS APPEARANCE. PLEASANT. INCONTINENT, VOICING IN BRIEFS. ON ROOM AIR. VITALS STABLE. REMAINS HYPERTENSIVE BUT IMPROVING. PHYSICIAN AWARE. ANTICIPATE D/C LATER TODAY. SPOKE WITH DAUGHTER OVER PHONE REGARDING DISCHARGE EDUCATION AND PLANS FOR PRECAUTIONS AT HOME.
[2020-04-07 16:41] LABS: URINE BILIRUBIN NEGATIVE (Negative); URINE BLOOD 2+ (Negative); URINE CLARITY CLEAR; URINE COLOR YELLOW; URINE GLUCOSE-RANDOM* NEGATIVE (Negative); URINE KETONES NEGATIVE (Negative); URINE LEUKOCYTES NEGATIVE (Negative); URINE NITRITE NEGATIVE (Negative); URINE PROTEIN (DIPSTICK) TRACE (Negative); URINE SPECIFIC GRAVITY 1.015 (1.005-1.035); URINE UROBILINOGEN 0.2 E.U./dl (0.2-1.0)
[2020-04-07 16:51] LABS: CASTS None Seen /LPF (None Seen); SQUAMOUS 0-3 Few /LPF (0-3)
[2020-04-07 16:52] LABS: BACTERIA 1-9 Few /HPF (None Seen); CRYSTALS None Seen /LPF (None Seen); URINE RBC 3-10 Few /HPF (0-2); URINE WBC 0-5 Rare /HPF (0-5)
[2020-04-07 16:54] LABS: YEAST Present (None Seen)
[2020-04-07 20:07] VITALS: BP 125/37
--- NOTE | 2020-04-08 04:24 | NUR ---
NEED ENCOURAGEMENT TO GET UP TO THE BSC. SHE IS TIRED AND DOES NOT FEEL LIKE GETTING UP. PAIN MANAGED WITH USE OF THE TRAMADOL. SHE HAS RESTED TONIGHT. SHE TURNS HERSELF IN BED. NO CONCERNS VOICED. CAREPLAN REVIEWED.
[2020-04-08 07:32] LABS: ABSOLUTE NEUTROPHILS 5.5 thou/uL (1.4-8.2); BASOPHILS 0.1 % (0.0-2.0); EOSINOPHILS 0.6 % (0.0-3.0); HEMATOCRIT 33.4 % (37.0-47.0); HEMOGLOBIN 10.5 gm/dL (12.0-15.0); LYMPHOCYTES 23.6 % (24.0-44.0); MCH 24.5 pg (26.0-34.0); MCHC 31.3 g/dL (28.0-37.0); MCV 78.5 fL (80.0-100.0); PLATELET COUNT 136 thou/uL (150-400); POLYS 68.7 % (36.0-66.0); RBC 4.26 mil/uL (4.20-5.00); RDW 18.3 % (10.5-14.5); WBC 8.1 thou/uL (4.0-11.0)
[2020-04-08 07:55] LABS: ALBUMIN 2.9 g/dL (3.4-5.0); CALCIUM 7.3 mg/dL (8.5-10.1); CREATININE 1.1 mg/dL (0.6-1.0); POTASSIUM 3.4 mmol/L (3.5-5.1); TOTAL BILIRUBIN 0.7 mg/dL (0.2-1.0); TOTAL PROTEIN 6.6 g/dL (6.4-8.2)
[2020-04-08 09:17] VITALS: BP 171/53
[2020-04-08 10:24] LABS: FIBRINOGEN 443.2 mg/dL (210-360); INR 2.8; PROTIME 29.2 Seconds (9.3-11.4)
[2020-04-08 10:58] VITALS: BP 154/55
[2020-04-08 14:59] VITALS: BP 124/44
--- NOTE | 2020-04-08 15:21 | NUR ---
PT A&OX4. CAROL ANN CATH INTACT IN R UPPER CHEST. ASSIST X1 TO BSC/CHAIR. APPETITE IS GOOD. TEMP. TODAY STILL ELEVATED SEE FLOW. PT SAT IN CHAIR FOR LUNCH BUT NOT FOR LONG SHE WANTED TO GET BACK IN BED. CALL LIGHT W/I REACH, BED/CHAIR ALARM ON.
--- NOTE | 2020-04-08 16:20 | NUR ---
RECEIVED CALL FROM LAB. OMA YEUNG COLLECTED FROM YESTERDAY IS A GRAM + COCCI OUT [address] HOWARD NOTIFIED.
[2020-04-08 20:03] VITALS: BP 113/49
--- NOTE | 2020-04-09 04:31 | NUR ---
VSS-LOWGRADE TEMP OF 100.4 OVERNIGHT. ALERT AND ORIENTED X 4, VERY ANXIOUS THROUGH EARLY PART OF SHIFT. MEDICATED WITH PRESCRIBED ATIVAN AND TRAMADOL FOR BACK PAIN, WAS ABLE TO REST COMFORTABLE AFTER ADMINISTRATION. REMAINS ON 2LNC WITH NO REPORTED DIFFICULTY BREATHING. OCCASIONAL EPISODES OF URINARY INCONTINENCE, NO BM THIS SHIFT. FALL PRECAUTIONS IN PLACE, CALLS APPROPRIATELY FOR ANY NEEDED ASSISTANCE.
[2020-04-09 08:00] VITALS: BP 125/54
[2020-04-09 11:37] VITALS: BP 107/41
[2020-04-09 15:07] VITALS: BP 116/45
--- NOTE | 2020-04-09 16:44 | NUR ---
PT A&OX3. [place]. TRANSFERS WITH ASSIST TO BSC AND CHAIR. PT EXTRA TIRED TODAY. CAROL ANN CATH IN R UPPER CHEST INFUSING IV ANTIBIOTICS AT THIS TIME. RUNNING A FEVER TODAY, BLOOD CULTURES ORDERED BY DR. HOWARD. CALL LIGHT W/I REACH, BED ALARM ON.
[2020-04-09 20:35] VITALS: BP 133/54
[2020-04-10 04:42] VITALS: BP 132/51
--- NOTE | 2020-04-10 08:10 | NUR ---
Assess due to length of stay. Admit with COVID + pneumonia and dehydration. Hx DM with controlled BG, A1C is 5.9. Appetite fair to good 50-100% of meals. Unable to speak with pt due to isolation. Chart reviewed and wt is down ~ 20 lb since 01/2019=10% but unsure if this is acute or chronic loss. Will add a glucerna shake 1x daily to make up for inconsistency in intake. Pt had pending discharge 04/07 which was cancelled due to fever 101. Low nutrition risk with interventions in place
[2020-04-10 08:49] VITALS: BP 117/50
[2020-04-10 11:22] VITALS: BP 110/48
--- NOTE | 2020-04-10 12:14 | NUR ---
PT IS VERY PLEASANT THIS MORNING, CHEST PORT ACCESS IS STILL FUNCTIONING, FLUSHED AND DRAWN BLOOD FROM. NO SPECIFIC CONCERNS FROM THE PT, PT WORKED WITH THE PT THIS MORNING. PT HAS BEEN SLEEPY THROUGHOUT THE DAY. VS ARE STABLE, BLOOD SUGAR IS STABLE WELL. WILL CONTINUE TO MONITOR AND UPDATE. PT HAD A LOW GRADE TEMP OF 100.2F THIS MORNING
[2020-04-10 12:20] LABS: PROTIME 48.8 Seconds (9.3-11.4)
[2020-04-10 12:24] LABS: INR 4.7
--- NOTE | 2020-04-10 13:29 | NUR ---
FRANCOIS reviewed chart and spoke with nursing and attending physician. Pt remains in Enhanced Isolation due to COVID-19. Pt's discharge on Friday was cancelled due to pt being febrile. Pt remains febrile. Blood cultures ordered. FRANCOIS updated Jan liaison. FRANCOIS spoke with pt's dtr, Linda, via phone to discuss possible post-acute placement. SW provided options of SNFs that accept new COVID positive pts. Pt's dtr requests referrals to be sent to [facility] and [facility]. Pt's dtr would like to have a facility that is able to provide window/outdoor visits or Face Time calls. SW faxed referrals to facilities. SW notified [place] [facility] post-acute liaison of new referral. [facility] has Face Time calls available. Some rooms have windows available. [facility] is able to accommodate both: window visits and Face Time calls. Awaiting calls from the SNFs re: bed availability and acceptance. FRANCOIS is following to assist as needed with discharge planning.
[2020-04-10 15:36] VITALS: BP 142/50
[2020-04-10 19:20] VITALS: BP 117/41
[2020-04-11 03:54] VITALS: BP 147/46
[2020-04-11 06:43] LABS: HEMATOCRIT 29.6 % (37.0-47.0); HEMOGLOBIN 9.2 gm/dL (12.0-15.0); MCH 25.3 pg (26.0-34.0); MCHC 31.1 g/dL (28.0-37.0); MCV 81.2 fL (80.0-100.0); RBC 3.65 mil/uL (4.20-5.00); RDW 18.4 % (10.5-14.5); WBC 7.5 thou/uL (4.0-11.0)
[2020-04-11 06:53] LABS: CALCIUM 7.1 mg/dL (8.5-10.1); CREATININE 0.9 mg/dL (0.6-1.0)
[2020-04-11 07:25] VITALS: BP 159/58
--- NOTE | 2020-04-11 07:35 | NUR ---
ASSUMED PT CARE AROUND 0000. VSS. NO S/S ACUTE DISTRESS NOTED OR REPORTED AT THIS TIME. CARE TRNASFERRED TO AM RN AT THIS TIME.
[2020-04-11 11:04] VITALS: BP 142/54
[2020-04-11 14:58] LABS: INR 4.3; PROTIME 44.7 Seconds (9.3-11.4)
[2020-04-11 15:24] VITALS: BP 142/57
--- NOTE | 2020-04-11 15:56 | NUR ---
FRANCOIS reviewed chart and spoke with nursing and attending physician. Pt is in Enhanced Isolation due to COVID-19. Pt continues to be febrile and is on O2. Pt is on IV abx. Awaiting blood cultures. FRANCOIS spoke with pt's dtr, Linda, via phone this morning to discuss discharge plan: post-acute placement. [facility] is no longer accepting COVID positive pts. [facility] is able to accept pt. Linda was agreeable with plan for pt to go to [place]. However, FRANCOIS received call back from Linda, stating that after reviewing the Medicare website, they would like to look at alternate facilities. FRANCOIS explained barrier to finding a facility accepting a new COVID facility. Linda requests a SNF in [place]. FRANCOIS left voice message for the referral coordinator at [facility]. FRANCOIS spoke with Orly, referral coordinator at [facility], who states they do not have any beds available at this time and they are not currently accepting COVID positive pts. Repeat COVID test ordered today. FRANCOIS spoke with Linda to provide update. Pt's dtr would like to wait for results of repeat COVID test prior to moving forward with post-acute placement. Should pt be negative, then that would open more opportunities for placement. FRANCOIS updated [place] post-acute liaison. FRANCOIS is following to assist as needed with discharge planning.
[2020-04-11 19:03] VITALS: BP 175/59
--- NOTE | 2020-04-11 19:15 | NUR ---
UPDATES WERE PROVIDED TO THE PT'S FAMILY TODAY, THE FAMILY MEMBERS WERE CURIOUS WHERE THE BACTEREMIA ORIGINATED FROM. NO CONCERNS FROM THE PT AT THIS TIME. PUREWICK STILL IN PLACE. HAD AN EPISODE OF HYPOGLYCEMIA THIS MORNING, NO INSULIN COVERAGE NEEDED TODAY. PT HAS HEALTHY INTAKE AND OUTPUT. Q2H TURNS BEING MAINTAINED. RN SIGNING OFF
[2020-04-12 04:14] VITALS: BP 141/43
--- NOTE | 2020-04-12 05:29 | NUR ---
ASSUMED CARE FROM DAY SHIFT PT ALERT ORIENTED TO SELF AND PLACE BUT HAVE RE-ORIENT TO SITAUTION AT TIMES BED ALARM FOR SAFETY , PT C/O BACK PAIN, PAIN MEDICATION GIVEN PRESCRIBED. CARDIAC MONTIOR SHOWS NSR , IV CAROL ANN CATH PATENT, LAB DRAWN AND SENT , IV ABX INFUSING WELL. PT RESTED WELL THROUGHOUT HOURLY ROUNDS WILL CONITINUE WITH CURRENT PLAN OF CARE.
[2020-04-12 06:21] LABS: HEMATOCRIT 28.5 % (37.0-47.0); HEMOGLOBIN 8.8 gm/dL (12.0-15.0); MCH 24.9 pg (26.0-34.0); MCV 80.1 fL (80.0-100.0); RBC 3.56 mil/uL (4.20-5.00); RDW 18.7 % (10.5-14.5); WBC 5.7 thou/uL (4.0-11.0)
[2020-04-12 06:35] LABS: INR 3.1; PROTIME 31.8 Seconds (9.3-11.4)
[2020-04-12 06:38] LABS: CALCIUM 7.3 mg/dL (8.5-10.1); CREATININE 0.7 mg/dL (0.6-1.0); POTASSIUM 3.5 mmol/L (3.5-5.1)
[2020-04-12 08:00] VITALS: BP 158/69
[2020-04-12 12:17] VITALS: BP 128/35
--- NOTE | 2020-04-12 15:12 | NUR ---
FRANCOIS reviewed chart and spoke with nursing and attending physician. Pt is Enhanced Isolation due to COVID-19. Pt is afebrile and on 1L of O2. Pt is on IV abx. Pt's repeat COVID test is pending. Therapy states that pt may be able to go home with HH. FRANCOIS spoke with pt's dtr, Linda, via phone to discuss discharge plan. Pt's dtr is agreeable with plan for pt to d/c home with HH. Pt's dtr states that she will be out of town on Friday, 04/14. Would prefer d/c tomorrow or Friday. FRANCOIS updated [facility] HH liaison. FRANCOIS is following to assist as needed with discharge planning.
--- NOTE | 2020-04-12 18:37 | NUR ---
PT IS A&OX3, BUT PT IS FORGETFUL AND ANXEITY , PT IS CONTIUNING IV ABX AND O2 1L/MIN/NC, PT'S TEMP IS 98.2F - 99.6F TODAY, PT DENIES PAIN AND SOB, PT IS ISOLATION FOR POSITIVE COVID.
[2020-04-12 20:45] VITALS: BP 125/48
[2020-04-13 05:29] VITALS: BP 154/58
--- NOTE | 2020-04-13 05:47 | NUR ---
ANXIETY AT TIMES. SHE HAS RESTED MOST OF THE NIGHT. CONTINUES IV FLUIDS.
[2020-04-13 06:50] LABS: CALCIUM 7.3 mg/dL (8.5-10.1); CREATININE 0.6 mg/dL (0.6-1.0); POTASSIUM 3.3 mmol/L (3.5-5.1)
[2020-04-13 06:51] LABS: HEMATOCRIT 29.9 % (37.0-47.0); HEMOGLOBIN 9.1 gm/dL (12.0-15.0); MCH 24.4 pg (26.0-34.0); MCHC 30.4 g/dL (28.0-37.0); MCV 80.3 fL (80.0-100.0); RBC 3.72 mil/uL (4.20-5.00); RDW 18.3 % (10.5-14.5); WBC 5.7 thou/uL (4.0-11.0)
[2020-04-13 06:52] LABS: INR 2.2; PROTIME 22.1 Seconds (9.3-11.4)
[2020-04-13 07:38] VITALS: BP 160/55
[2020-04-13 11:02] VITALS: BP 141/51
--- NOTE | 2020-04-13 15:25 | NUR ---
FRANCOIS reviewed chart and spoke with nursing and attending physician. Pt is in Enhanced Isolation due to COVID-19. Pt's repeat test from 04/11 is positive. Pt with fever earlier today and is on 1L of O2. Pt is on IV abx. Anticipate pt will be ready to discharge home in 1-2 days. Pt needs to be fever free for 24 hours. Physical therapy discharged pt from their service and recommended pt discharge home with HH services. FRANCOIS spoke with pt's dtr, Linda, via phone to provide update and discuss discharge plan. Pt's dtr is aware and agreeable with plan. FRANCOIS updated [facility] HH liaison. FRANCOIS is following to assist as needed with discharge planning.
[2020-04-13 16:15] VITALS: BP 145/47
--- NOTE | 2020-04-13 16:15 | NUR ---
PT ASSUMED CARE OF PT AT 0700. NO ACUTE DISTRESS. ANXIOUS AT TIMES. UP W/ THERAPIES. CALLS OUT APPROPRIATELY. TMAX 99.7. ANTICIPATE ONE MORE DAY IN HOSPITAL. WCM.
[2020-04-13 19:38] VITALS: BP 139/47
[2020-04-14 04:55] VITALS: BP 138/66
--- NOTE | 2020-04-14 07:20 | NUR ---
Pt. slept well during the night. Maintaining O2 sat in the low to mid 90's on 1L/NC. No respiratory distress. Temp max of 99.3 orally. Incontinent of bladder , external female cath placed last night. Able to turn herself from side to side.
[2020-04-14 07:32] VITALS: BP 149/53
[2020-04-14 11:20] VITALS: BP 164/64
[2020-04-14 15:17] VITALS: BP 149/47
[2020-04-14 15:48] LABS: INR 1.7; PROTIME 17.9 Seconds (9.3-11.4)
[2020-04-14 16:02] VITALS: BP 183/66
--- NOTE | 2020-04-14 16:12 | NUR ---
FRANCOIS reviewed chart and spoke with nursing and attending physician. Pt is in Enhanced Isolation due to COVDI-19. Pt is stable for discharge home today with HH services. 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 FRANCOIS faxed finalized discharge orders/summary to [facility] for review. Should there be any changes tomorrow, updated dc orders/summary will need to be faxed. Contact info for HH placed in pt's discharge summary. FRANCOIS is available to assist as needed with discharge planning. [facility]--
--- NOTE | 2020-04-14 18:21 | NUR ---
assumed patient care at 0700. a/o x4 but confused. tolerated on RA. incontinue. slowly towards poc goals. will dc home tomorrow.
[2020-04-14 19:48] VITALS: BP 136/71
[2020-04-15 04:14] VITALS: BP 129/51
--- NOTE | 2020-04-15 05:33 | NUR ---
continues to be resting most of the night. she is fetting her appetitie back, and is wanting some breakfast. careplan reviewed.
[2020-04-15 05:48] LABS: INR 1.6; PROTIME 16.4 Seconds (9.3-11.4)
[2020-04-15 08:10] VITALS: BP 135/50
[2020-04-15 08:28] VITALS: BP 135/50
--- NOTE | 2020-04-15 11:19 | NUR ---
PT IS &OX3,PT'S VS ARE STABLE, PT DENIES PAIN AND SOB, RN HAS UPDATED PT'S INFORMATION TO PT'S DAUGHTER, AND PT 'S DAUGHTER CAN TAKE PT TO HOME WHEN PT DC TO HOME, HAS PLANED TO DC PT TODAY.
[2020-04-15] MEDS ORDERED: DOXYCYCLINE 10100 M2 PO (12:22)
--- NOTE | 2020-04-15 16:01 | NUR ---
TAYS RECEIVED ORDER TO DC HOME WITH HOME HEALTH, RN HAS GIVING PT AND PT'S DAUGHTER ( BY PHONE ) DC TEACHING , THEY UNDERSTAND WELL , RN HAS CALLED PT'S PHARMACY FOR PT'S NEW MEDICATIONS, RN HAS DEACCESSED PT'S R CHEST PORT A CATHETER IV ACCESS , PT 'S DAUGHTER FREELANCE DATA ENTRY PT ABOUT 1500PM
== END 2020-04-15 15:00 | disposition home health service (06) | DRG 871 ==
LOC: ER 14:17 → EROBS 18:15 → 3W 18:15
PROVIDERS: Emergency Medicine; Internal Medicine; Specialist; ADMIT Hospitalist; ATTEND Hospitalist
DX: A41.89 Other specified sepsis (principal); U07.1 COVID-19; J96.01 Acute respiratory failure with hypoxia; J15.9 Unspecified bacterial pneumonia; J12.89 Other viral pneumonia; N17.9 Acute kidney failure, unspecified; I48.20 Chronic atrial fibrillation, unspecified; D61.818 Other pancytopenia; D68.9 Coagulation defect, unspecified; E86.0 Dehydration; J20.9 Acute bronchitis, unspecified; E03.9 Hypothyroidism, unspecified; F41.9 Anxiety disorder, unspecified; F03.90 Unspecified dementia, unspecified severity, without behavioral disturbance, psychotic disturbance, mood disturbance, and anxiety; L40.50 Arthropathic psoriasis, unspecified; F31.9 Bipolar disorder, unspecified; M79.7 Fibromyalgia; M19.90 Unspecified osteoarthritis, unspecified site; I25.10 Atherosclerotic heart disease of native coronary artery without angina pectoris; E11.51 Type 2 diabetes mellitus with diabetic peripheral angiopathy without gangrene; E78.5 Hyperlipidemia, unspecified; L40.9 Psoriasis, unspecified; I48.0 Paroxysmal atrial fibrillation; R53.81 Other malaise; T45.515A Adverse effect of anticoagulants, initial encounter; Y92.89 Other specified places as the place of occurrence of the external cause; Z60.2 Problems related to living alone; Z90.49 Acquired absence of other specified parts of digestive tract; Z86.718 Personal history of other venous thrombosis and embolism; Z98.42 Cataract extraction status, left eye; Z98.41 Cataract extraction status, right eye; Z85.3 Personal history of malignant neoplasm of breast; Z90.13 Acquired absence of bilateral breasts and nipples; Z90.711 Acquired absence of uterus with remaining cervical stump; Z86.73 Personal history of transient ischemic attack (TIA), and cerebral infarction without residual deficits; Z79.82 Long term (current) use of aspirin; Z79.84 Long term (current) use of oral hypoglycemic drugs; Z79.899 Other long term (current) drug therapy; Z79.01 Long term (current) use of anticoagulants; Z88.1 Allergy status to other antibiotic agents; Z88.5 Allergy status to narcotic agent; Z88.0 Allergy status to penicillin; Z88.2 Allergy status to sulfonamides; Z88.8 Allergy status to other drugs, medicaments and biological substances; Z91.048 Other nonmedicinal substance allergy status; Z87.891 Personal history of nicotine dependence
CPT/HCPCS: 10879

== ENCOUNTER 2020-05-31 20:34 | Inpatient (IN) | payer OTHER ==
[~2020-05-31] VITALS: Ht 154.9 cm; Wt 78.0 kg
[~2020-05-31 20:34] MED LIST changes: +BENAZEPRIL HCL20 MG PO; +DOXYCYCLINE 10100 M2 PO; +LEVAQUIN 500 M500 M1 PO; +LISINOPRIL10 MG PO
[2020-05-31 20:35] VITALS: BP 116/66
[2020-05-31] MEDS ORDERED: TRAMADOL 50 MG50 MG PO (20:43)
[2020-05-31] MEDS ORDERED: JANTOVEN1 MG PO (20:44)
--- NOTE | 2020-05-31 21:46 | NUR ---
pt's daughter Linda called to check on pt, updated on POC
[2020-05-31 22:17] LABS: ABSOLUTE NEUTROPHILS 2.6 thou/uL (1.4-8.2); BASOPHILS 0.6 % (0.0-2.0); EOSINOPHILS 2.4 % (0.0-3.0); HEMATOCRIT 29.9 % (37.0-47.0); HEMOGLOBIN 9.1 gm/dL (12.0-15.0); LYMPHOCYTES 49.4 % (24.0-44.0); MCH 23.4 pg (26.0-34.0); MCHC 30.6 g/dL (28.0-37.0); MCV 76.4 fL (80.0-100.0); MONOCYTES 7.4 % (1.0-8.0); PLATELET COUNT 180 thou/uL (150-400); POLYS 40.2 % (36.0-66.0); RBC 3.92 mil/uL (4.20-5.00); RDW 17.6 % (10.5-14.5); WBC 6.4 thou/uL (4.0-11.0)
[2020-05-31 22:23] LABS: ANION GAP 14 mmol/L (7-16); BUN 15 mg/dL (7-18); CALCIUM 7.6 mg/dL (8.5-10.1); CHLORIDE 99 mmol/L (98-107); CO2 25 mmol/L (21-32); CREATININE 1.3 mg/dL (0.6-1.0); GLUCOSE 101 mg/dL (74-106); POTASSIUM 3.2 mmol/L (3.5-5.1); SODIUM 138 mmol/L (136-145)
[2020-05-31 22:29] LABS: MAGNESIUM 0.8 mg/dL (1.8-2.4)
[2020-05-31 22:37] LABS: ALBUMIN 3.6 g/dL (3.4-5.0); SGOT 32 U/L (15-37); SGPT 19 U/L (30-65); TOTAL BILIRUBIN 0.3 mg/dL (0.2-1.0); TOTAL PROTEIN 7.5 g/dL (6.4-8.2); TROPONIN-I <0.06 ng/mL (<0.06)
[2020-05-31 23:19] LABS: URINE BILIRUBIN NEGATIVE (Negative); URINE BLOOD NEGATIVE (Negative); URINE CLARITY CLEAR; URINE COLOR YELLOW; URINE GLUCOSE-RANDOM* NEGATIVE (Negative); URINE KETONES NEGATIVE (Negative); URINE LEUKOCYTES-REFLEX NEGATIVE (Negative); URINE NITRITE-REFLEX NEGATIVE (Negative); URINE PROTEIN (DIPSTICK) NEGATIVE (Negative); URINE SPECIFIC GRAVITY <= 1.005 (1.005-1.035); URINE UROBILINOGEN 0.2 E.U./dl (0.2-1.0)
[2020-05-31 23:32] LABS: APTT 50.2 Seconds (24.5-32.8); INR 3.7; PROTIME 38.4 Seconds (9.3-11.4)
[2020-06-01] MEDS ORDERED: ZETIA10 MG PO (04:03)
[2020-06-01] MEDS ORDERED: FUROSEMIDE 40 M40 MG PO (04:03)
[2020-06-01] MEDS ORDERED: NORVASC 2.5 MG2.5 M1 PO (04:03)
[2020-06-01] MEDS ORDERED: FLOMAX0.4 MG PO (04:06)
[2020-06-01] MEDS ORDERED: NEURONTIN300 MG PO (04:06)
[2020-06-01] MEDS ORDERED: LISINOPRIL2.5 MG PO (04:08)
[2020-06-01 06:49] LABS: HEMATOCRIT 27.9 % (37.0-47.0); HEMOGLOBIN 8.7 gm/dL (12.0-15.0); MCH 23.7 pg (26.0-34.0); MCHC 31.2 g/dL (28.0-37.0); MCV 75.9 fL (80.0-100.0); RBC 3.68 mil/uL (4.20-5.00); RDW 17.5 % (10.5-14.5); WBC 5.3 thou/uL (4.0-11.0)
[2020-06-01 07:01] LABS: INR 3.3; PROTIME 34.1 Seconds (9.3-11.4)
[2020-06-01 07:04] LABS: CALCIUM 7.5 mg/dL (8.5-10.1); MAGNESIUM 1.5 mg/dL (1.8-2.4); POTASSIUM 3.7 mmol/L (3.5-5.1)
--- NOTE | 2020-06-01 07:47 | EKG ---
[facility] [place] [address] ELECTROCARDIOGRAM REPORT Name: KG AMARAL Room #: 170-1 ADM IN M.R.#: [id number] Admission: 06/01/20 Attend Phys: Bryan Arcos MD Discharge: Date of : 41 Report #: [id number] THIS REPORT FOR: cc: Humble Linares MD, Stanley P. MD Santiago, Patrick MD [facility] ~ THIS REPORT FOR: //name// [facility] ED Test Date: 2020-05-31 Test Time: 21:43:16 Pat Name: KG AMARAL Department: Room: 170 Gender: F Export Specialist: [facility]atie : 1945 Requested By: Margarita Aguirre Order Number: [id number] MD: Eddie Harvey Measurements Intervals [place] Rate: 96 P: 48 MN: 154 QRS: 10 QRSD: 94 T: 42 QT: 366 QTc: 463 Interpretive Statements Sinus rhythm Probable left atrial enlargement Borderline repolarization abnormality Compared to ECG 04/02/2020 14:48:25 Intraventricular conduction delay no longer present Electronically Signed On 06-01-2020 7:47:07 CDT by Eddie Harvey [email or web address] <ELECTRONICALLY SIGNED> By: Eddie Harvey MD, FACC 06/01/20 0747 Eddie Harvey MD, [facility] /EPI
[2020-06-01 08:23] VITALS: BP 131/44
[2020-06-01 15:28] LABS: % SATURATION 5 % (20-39); IRON 22 ug/dL (50-170); TIBC 427 ug/dL (250-450)
[2020-06-01 16:23] VITALS: BP 164/57
[2020-06-01 17:23] VITALS: BP 164/57
--- NOTE | 2020-06-01 18:44 | NUR ---
1800 PT ADMITTED TO 3W, ROOM 359, PT ALERT AND ORIENTED X4, FORGETFUL AT TIMES. PT DENIES ANY CHEST PAIN, NAUSEA AND VOMITTING. TELEMETRY PLACED ON PT, RUNNING SINUS RHYTHM, ROOM AIR, NO SIGNS OF DISTRESS. CONSENTS SIGNED BY PT. VITAL SIGNS, ASSESSMENT AND ADMISSION COMPLETED. FALL PRECAUTIONS INPLACE. BED AT LOWEST LEVEL WITH ALARM ON. WILL CONTINUE TO MONITOR.
[2020-06-01 19:32] VITALS: BP 153/79
[2020-06-01 23:19] VITALS: BP 166/82
[2020-06-02 03:57] VITALS: BP 159/83
[2020-06-02 04:58] LABS: PROTIME 30.5 Seconds (9.3-11.4)
[2020-06-02 05:09] LABS: CALCIUM 8.3 mg/dL (8.5-10.1); POTASSIUM 4.1 mmol/L (3.5-5.1)
--- NOTE | 2020-06-02 06:31 | NUR ---
Pt. very anxious at beginning of shift. Scheduled xanax given then prn later. Positive COVID results reported to ADOPTION COUNSELOR and manager house. Cont. on enhanced precaution , afebrile. Tolerating room air well with no respiratory distress. Slept fair during the night. Tylenol given this am for c/o headache with relief. Kept NPO since [place] for possible procedure per GI dr. Up with assist to commode and had period of bladder incontinence x1 this am. No bm this shift. Bed alarm on. Refused SCD's.
[2020-06-02 09:48] LABS: HEMATOCRIT 32.5 % (37.0-47.0); HEMOGLOBIN 9.8 gm/dL (12.0-15.0); MCH 23.2 pg (26.0-34.0); MCHC 30.1 g/dL (28.0-37.0); MCV 77.3 fL (80.0-100.0); RBC 4.2 mil/uL (4.20-5.00); RDW 17.6 % (10.5-14.5); WBC 5.1 thou/uL (4.0-11.0)
--- NOTE | 2020-06-02 12:02 | NUR ---
INITIAL ASSESSMENT: Received consult. FRANCOIS reviewed chart and spoke with nursing and attending physician. Pt was admitted from home due to near syncopal episode at home. Pt placed in Enhanced Isolation due to COVID-19. Pt was at [facility] with COVID-19 in March and [facility]. Pt's test on 06/01 was positive. Pt is afebrile and not requiring O2. Pt is on IV steroids. GI consulted. Pt to have an EGD/Colonoscopy. FRANCOIS placed call to pt's room. No answer. FRANCOIS spoke with pt's dtr, Linda, via phone. Introduced role of FRANCOIS. Pt lives at home alone. Pt's dtr lives nearby and is able to assist pt as needed. Prior to admission, pt was independent with ADLs. Pt does have walker. No stairs to navigate. Pt's PCP is Dr. Humble Linares. Pt was recently at [facility] and went to [facility] from [facility]. Pt has been at home with [facility] for about 3 weeks. Pt's dtr states plan is for pt to return home and resume HH when medically stable. PT/OT ordered to evaluate pt for discharge needs. FRANCOIS faxed clinical info/COVID test results to [facility] for review. FRANCOIS spoke with Vidhi in intake to notify of pt's admission and potential weekend discharge. Should pt be ready for discharge over the weekend, finalized discharge orders/summary will need to be faxed to . FRANCOIS is following to assist as needed with discharge planning. [facility]--
[2020-06-02 15:55] VITALS: BP 169/76
--- NOTE | 2020-06-02 17:01 | NUR ---
ASSUMED CARE OF PT AT SHIFT CHANGE. ASSESSMENT CHARTED. MEDS GIVEN PER OCT. PT DIFFICULT TO AROUSE THIS MORNING, NEEDED STERNAL RUB. SINCE PT HAS BEEN A&OX4, BUT FORGETFUL, ANXIOUS. TEARFUL THIS MORNING. REQUESTING TO TALK TO DR. WHITMAN. PLAN FOR EGD/COLONSCOPY ON FRIDAY, ONCE INR HAS LOWERED. CONSENT SIGNED. WILL CONTINUE TO MONITOR AND FOLLOW POC.
[2020-06-02 19:42] VITALS: BP 158/90
--- NOTE | 2020-06-03 04:47 | NUR ---
PT AOX4, NOTED TO BE HARD OF HEARING. PT REPORTS 5-7/10 PAIN IN HEAD AND GENERALIZED BODY. PT RECEIVING PRN PO TRAMADOL Q8HR AND PRN PO APAP Q4HR. PT DENIES SOB ON ROOM AIR. PT TOLERATING PO INTAKE OF FLUIDS AND HEART HEALTHY DIET. PT REPORTS SWALLOWING DIFFICULTY, MEDICATIONS GIVEN WITH PUDDING WITHOUT ISSUE. PT AMBULATING WITH X1 ASSIST TO BSC. PT WEAK WITH AMBULATION AND TRANSFERS. PT NOTED TO HAVE REDNESS TO SACRUM, BARRIER CREAM APPLIED, PHOTOGRAPHED IN CHART. PT RESTING IN BED THROUGHOUT SHIFT, FREQUENT REPOSITIONING ENCOURAGED. PT NOTED TO SHIFT INDEPENDENTLY WHILE IN BED. PT ENCOURAGED TO NOTIFY STAFF FOR ALL NEEDS. CALL LIGHT WITHIN REACH, BED ALARM IN REACH, BED IN LOWEST POSITION, FREQUENT MONITORING WILL CONTINUE.
[2020-06-03 06:18] VITALS: BP 132/64
[2020-06-03 06:55] LABS: HEMATOCRIT 28.3 % (37.0-47.0); HEMOGLOBIN 8.7 gm/dL (12.0-15.0); MCH 23.8 pg (26.0-34.0); MCHC 30.9 g/dL (28.0-37.0); MCV 77.1 fL (80.0-100.0); RBC 3.66 mil/uL (4.20-5.00); RDW 17.4 % (10.5-14.5); WBC 5.5 thou/uL (4.0-11.0)
[2020-06-03 07:06] LABS: INR 2.3; MAGNESIUM 1.4 mg/dL (1.8-2.4); POTASSIUM 4.1 mmol/L (3.5-5.1); PROTIME 24.1 Seconds (9.3-11.4)
[2020-06-03 07:39] VITALS: BP 133/69
[2020-06-03 15:46] VITALS: BP 171/67
[2020-06-03 16:06] VITALS: BP 167/81
--- NOTE | 2020-06-03 16:17 | NUR ---
PT IS TO DISCHARGE TO HOME TODAY TELE MONITOR DCD AND IV ACSESS DCD. PT TAKING SHOWER. COVID 19 RAPID TEST IS NEGATIVE.
--- NOTE | 2020-06-03 16:27 | NUR ---
PATIENT'S V.S. AT THIS TIME 97.1 18 104 167/81 O2 SAT = 100% RA. PT GIVEN XANAX AT THIS TIME HER REQUEST. WILL CALL DOCTOR TO SEE IF HE WANTS PRN B/P MED ORDERED.
--- NOTE | 2020-06-03 18:38 | NUR ---
PATIENT ALERT XS 4 WITH SOME FORGETFULNESS. TOOK MEDS W/O DIFF AND HAVE GOOD APPETITE. CALLED DR PETERSEN FOR PRN B/P MED. ON OCT. PT CONT OF B&B. USES BSC. HAS R CHEST PORT. FLUIDS INFUSING ORDERED. PT IS NOT ON O2. TELE MONITORED.
[2020-06-03 19:54] VITALS: BP 155/74
--- NOTE | 2020-06-04 04:02 | NUR ---
PT ALERT AND ORIENTED X4 WITH PERIODS OF FORGETFULNESS. 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 SIDERAILS UP X2. VSS AFEBRILE. ASSISTING TO BSC FREQUENTLY. MEDICATED WITH ANTIANXIETY MEDS AND PAIN MEDS PRN. PT HAS HAD TROUBLE SLEEPING ALL NIGHT.
[2020-06-04 04:15] VITALS: BP 160/84
[2020-06-04 05:29] LABS: HEMATOCRIT 26.8 % (37.0-47.0); HEMOGLOBIN 8.2 gm/dL (12.0-15.0); MCH 23.6 pg (26.0-34.0); MCHC 30.8 g/dL (28.0-37.0); MCV 76.7 fL (80.0-100.0); RBC 3.49 mil/uL (4.20-5.00); RDW 17.6 % (10.5-14.5); WBC 4.7 thou/uL (4.0-11.0)
[2020-06-04 05:42] LABS: INR 1.6; PROTIME 16.1 Seconds (9.3-11.4)
[2020-06-04 05:49] LABS: MAGNESIUM 1.7 mg/dL (1.8-2.4); POTASSIUM 3.8 mmol/L (3.5-5.1)
[2020-06-04 08:29] VITALS: BP 160/90
[2020-06-04 16:40] VITALS: BP 161/75
--- NOTE | 2020-06-04 18:32 | NUR ---
RN ASSUMED PT'S CARE AT 0700AM , PT IS A&OX3, BUT PT IS FORGETFUL, PT'S VS ARE STABLE, PT DENIES PAIN AND SOB AT THIS TIME, PT IS CONTINUING ISOALTION FOR POSITIVE COVID, PT'S PLAN IS GOING TO DO EGD/COLONOSCOPY TOMORROW, PT STARTS CLEAR LIQUID DIET TODAY , PREP START TONIGHT, NPO AFTER MN, PT DENIES PAIN AND SON AT THIS TIME.
[2020-06-04 19:31] VITALS: BP 177/78
--- NOTE | 2020-06-05 02:14 | NUR ---
PT CARE ASSUMED WITH PT IN ROOM WATCHING TV AT 1905.PT IS ALERT AND ORIENTED X4.PT IS UP WITH STANDBY TO BSC.PT IS ACCUCHECK ACHS.PT HAS BOWEL PREP FOR EGD AND COLONOSCOPY TODAY.PT NPO FROM MIDNIGHT .PT HAS BEING HAVING BOWEL MOVEMENT DURING SHIFT.PT HAS A RIGHT CHEST PORT.PAIN MANAGED WITH TRAMADOL.WILL CONTINUE TO MONITOR PER POC
[2020-06-05 03:53] VITALS: BP 174/86
[2020-06-05 05:00] LABS: HEMATOCRIT 27.1 % (37.0-47.0); HEMOGLOBIN 8.4 gm/dL (12.0-15.0); MCH 23.6 pg (26.0-34.0); MCHC 30.9 g/dL (28.0-37.0); MCV 76.3 fL (80.0-100.0); RBC 3.56 mil/uL (4.20-5.00); RDW 17.2 % (10.5-14.5); WBC 3.9 thou/uL (4.0-11.0)
[2020-06-05 05:06] LABS: INR 1.3; PROTIME 13.2 Seconds (9.3-11.4)
[2020-06-05 05:08] LABS: CREATININE 0.8 mg/dL (0.6-1.0); MAGNESIUM 1.6 mg/dL (1.8-2.4); POTASSIUM 3.4 mmol/L (3.5-5.1)
[2020-06-05 09:35] VITALS: BP 184/85
--- NOTE | 2020-06-05 16:06 | NUR ---
FRANCOIS reviewed chart and spoke with nursing and attending physician. Pt remains in Enhanced Isolation due to COVID-19. Pt is afebrile and not requiring O2. Pt is on IV abx. Pt to have EGD/colonoscopy today. FRANCOIS spoke with Vidhi, in intake at [facility], to provide update. FRANCOIS confirmed that they are aware that pt is COVID positive. Vidhi to check with staff to see if they will request another COVID test prior to discharge. FRANCOIS spoke with pt's dtr, Linda, via phone to provide update and discuss discharge plan. Pt's dtr verbalized understanding and states. Pt's dtr will be able to provide transportation home and stay with pt starting Friday. FRANCOIS is following to assist as needed with discharge planning.
[2020-06-05 17:50] VITALS: BP 156/74
--- NOTE | 2020-06-05 19:45 | NUR ---
RN ASSUMED PT'S CARE AT 0700AM , PT IS A&OX3 , PT HAS DONE EGD/COLONOSCOPY TODAY, PT'S VS ARE STABLE, PT IS TOLERATED DIET , PT DEINES PAIN AND N/V AT THIS TIME.PT HAS LOW POTTASUM AND LOW MAGENESUIM REPLACMENT BY IV .
[2020-06-05 20:12] VITALS: BP 146/4
[2020-06-06 04:06] VITALS: BP 149/66
[2020-06-06 04:29] LABS: HEMATOCRIT 26.6 % (37.0-47.0); HEMOGLOBIN 8.3 gm/dL (12.0-15.0); MCH 23.6 pg (26.0-34.0); MCV 76.2 fL (80.0-100.0); RBC 3.49 mil/uL (4.20-5.00); RDW 17.4 % (10.5-14.5); WBC 3.1 thou/uL (4.0-11.0)
[2020-06-06 04:38] LABS: CALCIUM 8.3 mg/dL (8.5-10.1); MAGNESIUM 2.2 mg/dL (1.8-2.4); POTASSIUM 4.1 mmol/L (3.5-5.1)
--- NOTE | 2020-06-06 05:39 | NUR ---
ASSUME CARE 1900. PT/VITALS STABLE. A/O X 4. GENERALYZED PAIN NOTED. GOOD TOLERANCE TO ACTIVITY. ASSESSMENT CHARTED. PROGRESSING WELL WITH POC. SR ON MONITOR. NO DISTRESS NOTED THROUGH THE NIGHT. PT DENIES ANY LIGHTHEADEDNESS. PLAN IS POSSIBLE DISCHARGE TODAY IF HGB STABILIZES. WILL CONTINUE TO MONITOR AND FOLLOW WITH POC
[2020-06-06 07:43] VITALS: BP 158/72
[2020-06-06 13:06] VITALS: BP 158/72
--- NOTE | 2020-06-06 13:25 | NUR ---
FRANCOIS reviewed chart and spoke with nursing and attending physician. Pt remains in Enhanced Isolation due to COVID-19. Pt is afebrile and not requiring O2. Pt is ready for discharge home today. FRANCOIS spoke with pt's dtr, Linda, via phone to discuss discharge plan. 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 Linda will be staying with pt upon her discharge. FRANCOIS discussed the possibility of [facility] paying for transportation home later today. Linda states that there would not be anyone available to let pt in her home, or to stay with her this evening. Pt's dtr states she has an appt tomorrow at 1230 and will pick pt up after the appt. Pt's dtr also expressed concern about pt losing her glasses while in the ER. SW contacted ER and public safety. No glasses were found. FRANCOIS spoke with pt via phone to discuss discharge plan. Pt is agreeable with plan and is also concerned about the cost of having to buy new glasses if her glasses are not found. FRANCOIS notified patient advocate and ER/3W unit mgr. FRANCOIS spoke with Vidhi in intake at [facility] to provide update and notify of pt's discharge. Vidhi states they do not require a repeat COVID test prior to discharge. Plan is for pt to discharge home tomorrow with [facility]. FRANCOIS is follwoing to finalize discharge plan.
[2020-06-06 15:20] VITALS: BP 181/83
--- NOTE | 2020-06-06 16:08 | P ---
[facility] [place] [address] PROCEDURE REPORT Name: KG AMARAL Room #: 359-P ADM IN ..#: [id number] Admission: 06/01/20 Attend Phys: Bryan Arcos MD Discharge: Date of : 41 Report #: [id number] THIS REPORT FOR: cc: Humble Linares MD, Stanley P. MD McElhinney, Christian C. MD ~ CC: Bryan Linares MD DATE OF SERVICE: 06/05/2020 PROCEDURE PERFORMED: Colonoscopy with biopsies. HISTORY OF PRESENT ILLNESS: The patient is a 74-year-old female with a history of anemia. Last hemoglobin was in 05/2015 was essentially normal other than small internal hemorrhoids. Biopsies at that time were negative for microscopic colitis. The patient denies any obvious blood in her stools. Stool hemoccult testing is pending at this time. Her hemoglobin is 8.4. She was on Coumadin. This has been held for the last several days. Her last hemoglobin today was 1.3. Plan is for colonoscopy. DESCRIPTION OF PROCEDURE: The risks and benefits of the procedure were explained to the patient, those risks including but not limited to bleeding, perforation and the risk of sedation. She understood these risks and gave informed consent. Sedation was given using propofol per anesthesia. Next, a digital rectal exam was initially performed, which was normal. Next, using a standard Olympus colonoscope, the scope was placed in the patient's anus and advanced under direct vision to the cecum. The overall prep was good. The cecum and ileocecal valve were normal in appearance. The ascending, transverse, descending and sigmoid colon were all normal. Random biopsies were obtained to rule out the possibility of microscopic colitis. Rectal mucosa was normal. On retroflexion, small nonbleeding internal hemorrhoids were noted. The scope was then withdrawn and the procedure terminated. The patient tolerated the procedure well. IMPRESSION: 1. Small internal hemorrhoids. 2. Otherwise, normal colonoscopy. RECOMMENDATIONS: 1. No evidence of bleeding on EGD and colonoscopy today. We will await stool Hemoccult testing. If positive, consider M2 capsule endoscopy in the future. 2. Resume Coumadin starting tomorrow. [facility] [address] [place] [address] PROCEDURE REPORT Name: KG AMRAAL Room #: 359-P [facility] IN .R.#: [id number] Admission: 06/01/20 Attend Phys: Bryan Arcos MD Discharge: Date of : 43 Report #: [id number] Thank you for allowing me to participate in her care. <ELECTRONICALLY SIGNED> By: Alberto Edmondson MD 06/06/20 1608 1558 546 Alberto Edmondson MD /nt
--- NOTE | 2020-06-06 16:08 | P ---
[facility] [place] [address] PROCEDURE REPORT Name: KG AMARAL Room #: 359-P [facility] IN ..#: [id number] Admission: 06/01/20 Attend Phys: Bryan Arcos MD Discharge: Date of : 43 Report #: [id number] THIS REPORT FOR: cc: Humble Linares MD, Stanley P. MD McElhinney, Christian C. MD ~ CC: Bryan Linares DATE OF SERVICE: 06/05/2020 PROCEDURE PERFORMED: Upper endoscopy with biopsies and esophageal dilation. HISTORY OF PRESENT ILLNESS: The patient is a 74-year-old female with a history of dysphagia, history of gastroesophageal reflux disease, on PPI therapy. The patient has been on Coumadin. This has been held for the last several days. Her last INR was 1.3. She denies any obvious bleeding. She also has a history of anemia. Hemoglobin has been in the 8 range. Plan is for EGD and colonoscopy today. DESCRIPTION OF PROCEDURE: The risks and benefits of the procedure were explained to the patient, those risks including but not limited to bleeding, perforation and the risk of sedation. She understood these risks and gave informed consent. Sedation was given using propofol per anesthesia. Next, using the standard Olympus upper endoscope, the scope was placed in the patient's mouth and advanced under direct vision through the esophagus, stomach and into the second portion of the duodenum. The upper and mid esophagus was normal in appearance. In the distal esophagus, a mild Schatzki's ring was noted. No evidence of esophagitis. Overall, the gastric mucosa was normal in the fundus. Mild gastritis noted in the body and antrum. Biopsies were obtained to rule out the possibility of H. pylori. No evidence of ulcerations or erosions. The pylorus was normal and patent. The duodenal bulb, first and second portion were all normal. The scope was then brought back up into the patient's stomach and a Savary guidewire was inserted through the scope. As the scope was then withdrawn, the wire remained in place. Next, a 51-Cypriot Savary dilation of the esophagus was then performed without difficulty. The wire and dilator removed. The scope was reintroduced into the patient's stomach. A small mucosal tear was noted just below the GE junction, a small amount of blood was noted, but this spontaneously stopped. At this point, the scope was then withdrawn and the procedure terminated. The patient tolerated the procedure well. IMPRESSION: 1. Mild gastritis. 2. Mild Schatzki's ring. [address] [address] PROCEDURE REPORT Name: KG AMARAL Room #: 359-P [facility]..#: [id number] Admission: 06/01/20 Attend Phys: Bryan Arcos MD Discharge: Date of : 41 Report #: [id number] 3. Otherwise, normal upper endoscopy. RECOMMENDATIONS: 1. Await biopsy results. 2. Recommend continue daily PPI therapy. 3. Observe the patient post-dilation. 4. We will proceed with colonoscopy next today. Thank you for allowing me to participate in her care. <ELECTRONICALLY SIGNED> By: Alberto Edmondson MD 06/06/20 1608 1505 1518 Alberto Edmondson MD /nt
[2020-06-06] MEDS ORDERED: SEROQUEL 25 MG25 M1 PO (18:49)
--- NOTE | 2020-06-06 19:33 | NUR ---
RN ASSUMED PT'S CARE AT 0700AM, PT IS A&OX3, PT'S VS ARE STABLE, PT GETS UP TO CHAIR WITH ASSIST, PT DENIES PAIN AND SOB, PT'S PLAN IS DC TO TOMORROW WHEN PT'S DAUGHTER IS AVAILABE TO TAKE CARE THIS PT.
[2020-06-06 21:10] VITALS: BP 178/74
[2020-06-06 23:46] VITALS: BP 156/73
[2020-06-07 03:15] VITALS: BP 168/70
[2020-06-07 05:47] LABS: INR 1.2
[2020-06-07 06:03] VITALS: BP 132/55
--- NOTE | 2020-06-07 06:05 | NUR ---
Pt. slept well during the night in between getting up to use the commode. Refused bed alarm on , fall risk score low so DC bed alarm. She calls approrpiately if she needs assistance. Anxiety med given x 1 with good result. PRN BP med given x1 per parameter and BP better this am. She has been afebrile. Tolerating room air well with no respiratory distress. Anticipating DC home today.
[2020-06-07 08:42] VITALS: BP 176/81
[2020-06-07 14:37] VITALS: BP 158/72
[2020-06-07 15:31] VITALS: BP 155/72
--- NOTE | 2020-06-07 15:31 | NUR ---
ASSUMED CARE APPROX 0700. PT ALERT AND ORIENTED X4. ASSESSMENT CHARTED AND VSS. PT AFEBRILE. SR ON TELE MONITOR. PT TO BE D/C'D TODAY. PT'S DTR UPDATED ON PT STATUS THIS SHIFT. DISCHARGE INSTRUCTIONS DISCUSSED W/ PT AND DTR ON SPEAKER PHONE PER PT REQUEST. PT AND DTR DENY QUESTIONS REGARDING DISCHARGE INSTRUCTIONS. FLU VACCINE GIVEN AND INFORMATION PROVIDED FOR PT. PT'S GLASSES HAVE STILL NOT BEEN FOUND, BUT DTR HAS BEEN CONTACTED REGARDING THIS MATTER. PORT-A-CATH DEACCESSED W/O COMPLICATIONS. PT ESCORTED OUT TIMELY.
--- NOTE | 2020-06-07 16:02 | NUR ---
DISCHARGE NOTE: FRANCOIS reviewed chart and spoke with nursing and attending physician. Pt is medically stable for discharge home with [facility] today. FRANCOIS faxed finalized discharge orders/summary to HH and confirmed info was received with Vidhi in intake. FRANCOIS spoke with pt's dtr, Linda, via phone to provide update and notify of discharge orders. 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 Pt's dtr requested follow up on pt's missing glasses. SW contacted patient advocate and 3W unit mgr. Unit mgr contacted pt's dtr. Contact info for HH placed in pt's discharge summary. No additional SW needs identified at this time, but is available to assist should needs arise.
--- NOTE | 2020-06-09 11:49 | PATH ---
[facility] [address] [address] PATHOLOGY RPT PROCEDURE Name: TORI AMARAL Room #: 359-P DIS IN M.R.#: [id number] Admission: 06/01/20 Date of : 41 Discharge: 06/07/20 Report #: [id number] Path Case #: [id number] [facility] Accession Number: [id number] . 01 Material submitted: . PART A: stomach - BIOPSY OF GASTRITIS R/O H. PYLORI PART B: colon - RANDOM BIOPSY OF COLON R/O MICROSCOPIC COLITIS . 01 Clinician provided ICD-10: U07.1 E43 . 01 Clinical history: . HYPOMAG., HYPOKALEMIA, NEAR SYNCOPE . 02 Diagnosis: A. Stomach, "gastritis", endoscopic biopsy: - Gastric antral and oxyntic mucosa with features of reactive gastropathy (chemical gastritis). - Negative for active inflammation, intestinal metaplasia, dysplasia, and malignancy. - Negative for Helicobacter pylori. . B. Large bowel, "random", endoscopic biopsy: - Large bowel mucosa with increased intraepithelial lymphocytes. - Negative for active inflammation, crypt architectural distortion, granulomatous inflammation, dysplasia, and malignancy. - Please see comment. . (LIZZIE:laura; 06/07/2020) [facility] 06/08/2020 1152 Local . 02 Comment: The random colon biopsies (specimen B) show an increased number of intraepithelial lymphocytes, which is compatible with lymphocytic colitis. . (MLK:laura; 06/07/2020) . 02 Electronically signed: . Mika Snowden MD, Pathologist NPI- [id number] . 01 Gross description: . A. Received in formalin labeled "Tori Amaral, BX of gastritis rule out H. pylori" are multiple lakhani-brown soft tissue fragments measuring in aggregate 1.3 x 0.3 x 0.1 cm. The specimen is submitted entirely [place] [address] PATHOLOGY RPT PROCEDURE Name: TORI AMARAL S Room #: 359-P DIS IN .R.#: [id number] Admission: 06/01/20 Date of : 41 Discharge: 06/07/20 Report #: [id number] Path Case #: [id number] B. Received in formalin labeled "Tori Amaral, random BX of colon rule out microscopic colitis" are multiple lakhani-brown soft tissue fragments measuring in aggregate 1.0 x 0.5 x 0.1 cm. The specimen is submitted entirely in B1. ([facility]; 06/06/2020) [facility] 06/06/[address] [place] [address] . 02 Microscopic: . Immunohistochemical stain results (appropriately controlled): Helicobacter pylori (block A1): Negative for organisms . Special stain results (properly-controlled): Trichrome (block B1): Negative for increased subepithelial collagen . (MLK:mml; 06/07/2020) . 02 Pathologist provided ICD-10: K31.9, K63.9, E83.42, E87.6 . 02 CPT . 425297, 093568, A27000, 515427 Specimen Comment: A courtesy copy of this report has been sent to [phone], [phone] Specimen Comment: [phone], Specimen Comment: Report sent to ,DR ROLLE / DR RANGEL Specimen Comment: A duplicate report has been generated due to demographic updates. Performed at: [address], [place] [id number] MD Harvey Peck MD Phone: [phone] Performed at: [address] [id number] MD Ariana Obrien MD Phone: [phone]
== END 2020-06-07 16:00 | disposition home health service (06) | DRG 177 ==
LOC: ER 20:34 → EROBS 06-01 00:03 → 3W 06-01 00:03
PROVIDERS: Emergency Medicine; Internal Medicine; Internal Medicine Gastroenterology; Nurse Practitioner; Nurse Practitioner Family; Physician Assistant; ADMIT Hospitalist; ATTEND Hospitalist
PROC: 0DBE8ZX Excision of Large Intestine, Via Natural or Artificial Opening Endoscopic, Diagnostic (ICD-10-PCS; principal; 2020-06-05)
PROC: 0DB68ZX Excision of Stomach, Via Natural or Artificial Opening Endoscopic, Diagnostic (ICD-10-PCS; principal; 2020-06-05)
PROC: 0D758ZZ Dilation of Esophagus, Via Natural or Artificial Opening Endoscopic (ICD-10-PCS; principal; 2020-06-05)
DX: U07.1 COVID-19 (principal); E43 Unspecified severe protein-calorie malnutrition; N17.0 Acute kidney failure with tubular necrosis; D68.9 Coagulation defect, unspecified; I48.20 Chronic atrial fibrillation, unspecified; E83.42 Hypomagnesemia; F03.90 Unspecified dementia, unspecified severity, without behavioral disturbance, psychotic disturbance, mood disturbance, and anxiety; E86.0 Dehydration; F32.9 Major depressive disorder, single episode, unspecified; F41.9 Anxiety disorder, unspecified; E03.9 Hypothyroidism, unspecified; M19.90 Unspecified osteoarthritis, unspecified site; I10 Essential (primary) hypertension; I25.10 Atherosclerotic heart disease of native coronary artery without angina pectoris; E11.51 Type 2 diabetes mellitus with diabetic peripheral angiopathy without gangrene; E78.5 Hyperlipidemia, unspecified; J44.9 Chronic obstructive pulmonary disease, unspecified; E87.6 Hypokalemia; K29.70 Gastritis, unspecified, without bleeding; K22.2 Esophageal obstruction; K64.8 Other hemorrhoids; D50.9 Iron deficiency anemia, unspecified; I67.1 Cerebral aneurysm, nonruptured; F01.50 Vascular dementia, unspecified severity, without behavioral disturbance, psychotic disturbance, mood disturbance, and anxiety; R13.10 Dysphagia, unspecified; L40.50 Arthropathic psoriasis, unspecified; Z60.2 Problems related to living alone; Z79.899 Other long term (current) drug therapy; Z90.49 Acquired absence of other specified parts of digestive tract; Z86.718 Personal history of other venous thrombosis and embolism; Z98.41 Cataract extraction status, right eye; Z98.42 Cataract extraction status, left eye; Z85.3 Personal history of malignant neoplasm of breast; Z90.711 Acquired absence of uterus with remaining cervical stump; Z86.73 Personal history of transient ischemic attack (TIA), and cerebral infarction without residual deficits; Z86.14 Personal history of Methicillin resistant Staphylococcus aureus infection; Z79.82 Long term (current) use of aspirin; Z90.13 Acquired absence of bilateral breasts and nipples; Z88.6 Allergy status to analgesic agent; Z88.1 Allergy status to other antibiotic agents; Z88.0 Allergy status to penicillin; Z88.8 Allergy status to other drugs, medicaments and biological substances; Z87.891 Personal history of nicotine dependence; Z86.711 Personal history of pulmonary embolism; Z23 Encounter for immunization; Z68.32 Body mass index [BMI] 32.0-32.9, adult
CPT/HCPCS: 10879; 62110; 62900

== ENCOUNTER 2020-06-29 14:49 | Inpatient (IN) | payer OTHER ==
[~2020-06-29] VITALS: Ht 157.5 cm; Wt 80.7 kg
[2020-06-29 14:49] VITALS: BP 139/55
[~2020-06-29 14:49] MED LIST changes: +FUROSEMIDE 40 M40 MG PO; +JANTOVEN1 MG PO; +LISINOPRIL2.5 MG PO; +NEURONTIN300 MG PO; +NORVASC 2.5 MG2.5 M1 PO; +ZETIA10 MG PO
[2020-06-29 16:07] LABS: ABSOLUTE NEUTROPHILS 1.9 thou/uL (1.4-8.2); BASOPHILS 0.7 % (0.0-2.0); EOSINOPHILS 3.2 % (0.0-3.0); HEMATOCRIT 25.4 % (37.0-47.0); HEMOGLOBIN 7.8 gm/dL (12.0-15.0); LYMPHOCYTES 45.5 % (24.0-44.0); MCH 22.6 pg (26.0-34.0); MCHC 30.8 g/dL (28.0-37.0); MCV 73.3 fL (80.0-100.0); MONOCYTES 11.3 % (1.0-8.0); PLATELET COUNT 195 thou/uL (150-400); POLYS 39.3 % (36.0-66.0); RBC 3.46 mil/uL (4.20-5.00); RDW 17.6 % (10.5-14.5); WBC 4.9 thou/uL (4.0-11.0)
[2020-06-29 16:30] LABS: ALBUMIN 3.2 g/dL (3.4-5.0); CREATININE 1.9 mg/dL (0.6-1.0); DIRECT BILIRUBIN 0.2 mg/dL (<0.1-0.2); TOTAL BILIRUBIN 0.5 mg/dL (0.2-1.0); TOTAL PROTEIN 6.8 g/dL (6.4-8.2)
[2020-06-29 16:37] LABS: POTASSIUM 2.5 mmol/L (3.5-5.1)
[2020-06-29 16:42] LABS: CALCIUM 7.2 mg/dL (8.5-10.1)
--- NOTE | 2020-06-29 17:00 | EKG ---
[facility] [place] [address] ELECTROCARDIOGRAM REPORT Name: NOA AMARALDRBelia Daigle Room #: [facility]..#: [id number] Admission: Attend Phys: Discharge: Date of : 43 Report #: [id number] THIS REPORT FOR: cc: Humble Linares MD, Stanley P. MD Santiago, Patrick MD [facility] ~ THIS REPORT FOR: //name// [facility] ED Test Date: 2020-06-29 Test Time: 16:51:26 Pat Name: KG AMARAL Department: Room: Gender: F Race Car Driver: kf : 1945 Requested By: Tim Lassiter Order Number: [id number] MD: Eddie Harvey Measurements Intervals [place] Rate: 90 P: 30 WA: 152 QRS: 7 QRSD: 105 T: 10 QT: 430 QTc: 527 Interpretive Statements Sinus rhythm Borderline repolarization abnormality Prolonged QT interval Baseline wander in lead(s) V5,V6 Compared to ECG 05/31/2020 21:43:16 Prolonged QT interval now present Electronically Signed On 06-29-2020 17:00:28 HOMOGENIZER OPERATOR by Eddie Harvey [email or web address] <ELECTRONICALLY SIGNED> By: Eddie Harvey MD, FACC 06/29/20 1700 50 50 Eddie Harvey MD, FACC /EPI
[2020-06-29 17:11] LABS: ANISOCYTOSIS 2+
[2020-06-29 17:12] LABS: HYPOCHROMASIA 2+; MICROCYTES 1+; POLYCHROMASIA SLIGHT
[2020-06-29 18:18] LABS: INR 1.3; PROTIME 13.7 Seconds (9.3-11.4)
[2020-06-29 18:49] LABS: URINE BILIRUBIN NEGATIVE (Negative); URINE BLOOD NEGATIVE (Negative); URINE CLARITY CLEAR; URINE COLOR YELLOW; URINE GLUCOSE-RANDOM* NEGATIVE (Negative); URINE KETONES NEGATIVE (Negative); URINE LEUKOCYTES-REFLEX NEGATIVE (Negative); URINE NITRITE-REFLEX NEGATIVE (Negative); URINE PROTEIN (DIPSTICK) NEGATIVE (Negative); URINE UROBILINOGEN 0.2 E.U./dl (0.2-1.0)
[2020-06-29 21:53] VITALS: BP 156/65
[2020-06-29 21:59] VITALS: BP 144/86
[2020-06-29 22:30] VITALS: BP 171/62
[2020-06-29] MEDS ORDERED: MELATONIN3 M1 PO (23:14)
[2020-06-30] VITALS: BP 151/63
--- NOTE | 2020-06-30 02:19 | NUR ---
PATIENT TRANSFERRED FROM ED AT APPROXIMATELY 2230. ADMISSION HISTORY/ASSESSMENT COMPLETED. MED RECONCILE DONE. PLACED MED LIST IN CHART. CURRENTLY NO RESULTS FROM LACTULOSE GIVEN IN ED. WILL CONTINUE TO MONITOR.
[2020-06-30 03:40] VITALS: BP 137/63
[2020-06-30 04:33] LABS: CALCIUM 7.1 mg/dL (8.5-10.1); CREATININE 1.5 mg/dL (0.6-1.0); MAGNESIUM 1.6 mg/dL (1.8-2.4)
[2020-06-30 04:40] LABS: HEMATOCRIT 25.5 % (37.0-47.0); HEMOGLOBIN 7.7 gm/dL (12.0-15.0); MCH 22.3 pg (26.0-34.0); MCHC 30.4 g/dL (28.0-37.0); MCV 73.6 fL (80.0-100.0); PLATELET COUNT 199 thou/uL (150-400); RBC 3.46 mil/uL (4.20-5.00); RDW 17.7 % (10.5-14.5)
[2020-06-30 04:58] LABS: POTASSIUM 2.7 mmol/L (3.5-5.1)
[2020-06-30] MEDS ORDERED: XANAX 0.5 MG0.5 M1 PO (11:28)
[2020-06-30] MEDS ORDERED: METOLAZONE 2.52.5 M1 PO (11:29)
[2020-06-30] MEDS ORDERED: FUROSEMIDE 40 M40 MG PO (11:29)
[2020-06-30] MEDS ORDERED: NEURONTIN 300M300 M2 PO (11:30)
[2020-06-30 12:00] VITALS: BP 152/69
[2020-06-30 12:26] LABS: ABSOLUTE NEUTROPHILS 2.7 thou/uL (1.4-8.2); ANISOCYTOSIS 1+; HYPOCHROMASIA 2+; MICROCYTES 1+
[2020-06-30 13:46] LABS: FOLIC ACID 16.5 ng/mL (8.6-58.9); TSH 1.705 uIU/mL (0.358-3.740)
[2020-06-30 16:45] VITALS: BP 147/68
[2020-06-30 19:30] VITALS: BP 128/50
--- NOTE | 2020-06-30 19:31 | NUR ---
ASSUMED CARE OF PT AT SHIFT CHANGE. ASSESSMENTS CHARTED. MEDS GIVEN PER OCT. PT A&OX4, NO C/O PAIN. HAS LOW GRADE FEVER MOST OF DAY. MONITORING POTASSIUM AND LACTIC ACID. WILL CONTINUE TO MONITOR AND FOLLOW POC.
[2020-07-01 02:07] LABS: HEMATOCRIT 25.7 % (37.0-47.0); HEMOGLOBIN 7.7 gm/dL (12.0-15.0); MCH 21.9 pg (26.0-34.0); MCHC 30.1 g/dL (28.0-37.0); MCV 72.8 fL (80.0-100.0); RBC 3.53 mil/uL (4.20-5.00); RDW 17.5 % (10.5-14.5); WBC 4.9 thou/uL (4.0-11.0)
[2020-07-01 02:10] LABS: CALCIUM 7.6 mg/dL (8.5-10.1); CREATININE 1.2 mg/dL (0.6-1.0); POTASSIUM 3.4 mmol/L (3.5-5.1)
[2020-07-01 02:31] LABS: INR 1.3; PROTIME 13.1 Seconds (9.3-11.4)
[2020-07-01 03:40] VITALS: BP 156/67
--- NOTE | 2020-07-01 04:48 | NUR ---
assumed pt care at the change of shift, awake, alert and oriented, sr on the monitor, denies pain or sob, assessments as charted, medications given as per mar, lactic acid 2.0, no needs at this time, will continue to monitor
[2020-07-01 08:22] VITALS: BP 139/67
[2020-07-01 11:38] VITALS: BP 106/42
--- NOTE | 2020-07-01 15:43 | NUR ---
PT ALERT AND ORIENTED TIMES FOUR. VSS, IVF INFUSING PER ORDER. PT DENIES PAIN/SOA. PT TOLERATES MEDS AND MEALS. PT UP TO BSC WITH ASSIST OF ONE. PT PROGRESSING TOWRADS POC GOALS.
[2020-07-01 16:53] VITALS: BP 149/54
[2020-07-01 20:20] VITALS: BP 146/49
[2020-07-02] VITALS (8 sets, daily range): BP systolic 146–166; BP diastolic 47–78
--- NOTE | 2020-07-02 06:12 | NUR ---
ASSUMED PT CARE AROUND 1930. AXOX3. VSS. NO S/S ACUTE DISTRESS NOTED OR REPORTED AT THIS TIME. WILL CONT TO MONITOR FOR ANY CHAGNES IN CONDITION.
[2020-07-02 06:22] LABS: CALCIUM 7.8 mg/dL (8.5-10.1); CREATININE 1.1 mg/dL (0.6-1.0); POTASSIUM 3.2 mmol/L (3.5-5.1)
[2020-07-02 06:27] LABS: PROTIME 28.4 Seconds (9.3-11.4)
[2020-07-02 06:30] LABS: INR 2.8
--- NOTE | 2020-07-02 19:26 | NUR ---
PT CARE ASSUMED AT 0700. ASSESSMENTS CHARTED. MEDICATION CHARTED. RT CAROL ANN CATH. BM; 07/02/20. TAKES PILLS CRUSHED IN APPLESAUCE; UNLESS THEY ARE SMALL. SINUS RHYTHM. NO PAIN. VSS.
--- NOTE | 2020-07-03 03:20 | NUR ---
PT SITTING UP TO SOB, R CAROL ANN CATH ACCESSED FOR IV ANTIBIOTICS, C/O NECK PAIN AND PRN PAIN MED GIVEN, MEDS CRUCHED IN APPLESAUCE. MOVES SELF IN BED NEEDED, COUMADIN REMAINS ON HOLD, WILL CON'T TO MONITOR PER PPOC
[2020-07-03 04:14] VITALS: BP 138/60
[2020-07-03 07:04] LABS: INR 3.3; PROTIME 34.2 Seconds (9.3-11.4)
[2020-07-03 07:06] LABS: GLYCOHEMOGLOBIN (HGB A1C) 6.2 % (4.8-5.6)
[2020-07-03 08:19] VITALS: BP 139/43
[2020-07-03] MEDS ORDERED: CLEOCIN HCL300 MG PO (09:08)
--- NOTE | 2020-07-03 11:27 | NUR ---
Patient to pr home today. She has orders for home health care. patient reports she lives in independent apt and uses a walker. She reports her dtr usu "stays with her." She does not live with her but stays with her often. her dtr having sx today and unable to transport home. Discussed can assist with transportations home. Verified address and PCP Dr Linares. Patient reports she has HH presently. She could not recall agency but reports recommended by hospital. Questioned if [facility] and she confirmed. Faxed clinical update and orders to [facility] for HH care at pr. [facility] not on service with patient but she is agreeable for referral and start of care. Patient in process of discussing with dtr and friend for corrales to enter apt. She will alert casemgt of timeframe for transport.
[2020-07-03 13:43] VITALS: BP 139/43
--- NOTE | 2020-07-03 14:34 | NUR ---
ASSUMED CARE AT CHANGE OF SHIFT. ALERTX4, FROM HOME. PAIN MANAGED WITH MEDICATIONS, UP WITH WALKER. VOIDS PER COMMODE BM TODAY. PT DC HOME WITH HH. REVIEWED DC PAPERS.
[2020-07-03 15:49] VITALS: BP 164/78
== END 2020-07-03 17:11 | disposition home health service (06) | DRG 602 ==
LOC: ER 14:49 → EROBS 18:10 → 2N 18:10
PROVIDERS: Hospitalist; Internal Medicine; Nurse Practitioner; ADMIT Hospitalist; ATTEND Hospitalist
DX: L03.116 Cellulitis of left lower limb (principal); N17.0 Acute kidney failure with tubular necrosis; E87.2 Acidosis; L03.115 Cellulitis of right lower limb; L40.50 Arthropathic psoriasis, unspecified; F31.9 Bipolar disorder, unspecified; E03.9 Hypothyroidism, unspecified; F41.9 Anxiety disorder, unspecified; M79.7 Fibromyalgia; M19.90 Unspecified osteoarthritis, unspecified site; I25.10 Atherosclerotic heart disease of native coronary artery without angina pectoris; E11.51 Type 2 diabetes mellitus with diabetic peripheral angiopathy without gangrene; I48.91 Unspecified atrial fibrillation; J44.9 Chronic obstructive pulmonary disease, unspecified; F03.90 Unspecified dementia, unspecified severity, without behavioral disturbance, psychotic disturbance, mood disturbance, and anxiety; M48.00 Spinal stenosis, site unspecified; D64.9 Anemia, unspecified; N18.9 Chronic kidney disease, unspecified; K21.9 Gastro-esophageal reflux disease without esophagitis; M62.84 Sarcopenia; Z20.828 Contact with and (suspected) exposure to other viral communicable diseases; E87.6 Hypokalemia; E83.42 Hypomagnesemia; R94.31 Abnormal electrocardiogram [ECG] [EKG]; I12.9 Hypertensive chronic kidney disease with stage 1 through stage 4 chronic kidney disease, or unspecified chronic kidney disease; E11.22 Type 2 diabetes mellitus with diabetic chronic kidney disease; Z88.1 Allergy status to other antibiotic agents; Z88.2 Allergy status to sulfonamides; Z79.899 Other long term (current) drug therapy; Z86.19 Personal history of other infectious and parasitic diseases; Z85.3 Personal history of malignant neoplasm of breast; Z90.49 Acquired absence of other specified parts of digestive tract; Z79.82 Long term (current) use of aspirin; Z79.01 Long term (current) use of anticoagulants; Z88.8 Allergy status to other drugs, medicaments and biological substances; Z88.0 Allergy status to penicillin; Z87.891 Personal history of nicotine dependence; Z86.718 Personal history of other venous thrombosis and embolism; Z86.711 Personal history of pulmonary embolism; Z86.73 Personal history of transient ischemic attack (TIA), and cerebral infarction without residual deficits; Z90.710 Acquired absence of both cervix and uterus; Z90.13 Acquired absence of bilateral breasts and nipples
CPT/HCPCS: 10081

== ENCOUNTER 2020-09-13 10:13 | Inpatient (IN) | payer OTHER ==
[~2020-09-13] VITALS: Ht 162.6 cm; Wt 80.7 kg
[~2020-09-13 10:13] MED LIST changes: +CLEOCIN HCL300 MG PO; +MELATONIN3 M1 PO; +METOLAZONE 2.52.5 M1 PO; +XANAX 0.5 MG0.5 M1 PO
[2020-09-13 10:19] VITALS: BP 171/63
[2020-09-13 11:14] LABS: RBC 3.24 mil/uL (4.20-5.00)
[2020-09-13 11:16] LABS: ABSOLUTE NEUTROPHILS 2.2 thou/uL (1.4-8.2); BASOPHILS 0.4 % (0.0-2.0); EOSINOPHILS 2.3 % (0.0-3.0); HEMATOCRIT 22.3 % (37.0-47.0); LYMPHOCYTES 31.3 % (24.0-44.0); MCH 19.7 pg (26.0-34.0); MCHC 28.6 g/dL (28.0-37.0); MCV 68.6 fL (80.0-100.0); MONOCYTES 7.1 % (1.0-8.0); PLATELET COUNT 136 thou/uL (150-400); POLYS 58.9 % (36.0-66.0); RDW 20.2 % (10.5-14.5); WBC 3.7 thou/uL (4.0-11.0)
[2020-09-13 11:18] LABS: ANION GAP 9 mmol/L (7-16); BUN 17 mg/dL (7-18); CALCIUM 9.2 mg/dL (8.5-10.1); CHLORIDE 105 mmol/L (98-107); CO2 28 mmol/L (21-32); CREATININE 1.1 mg/dL (0.6-1.0); GLUCOSE 155 mg/dL (74-106); POTASSIUM 3.5 mmol/L (3.5-5.1); SODIUM 142 mmol/L (136-145)
[2020-09-13 11:21] LABS: HEMOGLOBIN 6.4 gm/dL (12.0-15.0)
[2020-09-13 11:29] LABS: ALBUMIN 3.3 g/dL (3.4-5.0); APTT 43.4 Seconds (24.5-32.8); DIRECT BILIRUBIN 0.1 mg/dL (<0.1-0.2); LIPASE 158 U/L (73-393); PROTIME 20.9 Seconds (9.3-11.4); SGOT 26 U/L (15-37); SGPT 27 U/L (14-59); TOTAL BILIRUBIN 0.4 mg/dL (0.2-1.0); TOTAL PROTEIN 6.5 g/dL (6.4-8.2); TROPONIN-I <0.06 ng/mL (<0.06)
[2020-09-13 11:31] LABS: URINE BILIRUBIN NEGATIVE (Negative); URINE BLOOD NEGATIVE (Negative); URINE CLARITY CLEAR; URINE COLOR YELLOW; URINE GLUCOSE-RANDOM* NEGATIVE (Negative); URINE KETONES NEGATIVE (Negative); URINE LEUKOCYTES-REFLEX NEGATIVE (Negative); URINE NITRITE-REFLEX NEGATIVE (Negative); URINE PROTEIN (DIPSTICK) NEGATIVE (Negative); URINE SPECIFIC GRAVITY <= 1.005 (1.005-1.035)
[2020-09-13 12:52] LABS: ANISOCYTOSIS 1+; HYPOCHROMASIA 1+; LARGE PLATELETS OCCASIONAL; MICROCYTES 1+; POIKILOCYTOSIS SLIGHT
--- NOTE | 2020-09-13 12:53 | EKG ---
[address] [employer] [place] [address] ELECTROCARDIOGRAM REPORT Name: KG AMARAL [id number] Admission: 09/13/20 Attend Phys: Discharge: Date of : 41 Report #: [id number] [facility] ED Test Date: 2020-09-13 Test Time: 10:42:29 Pat Name: KG AMARAL Department: Room: Gender: F Certification Officer: Alvaro HURLEY : 1945 Requested By: Ki Heath Order Number: [id number] MD: Eddie Harvey Measurements Intervals [place] Rate: 93 P: 53 DE: 164 QRS: 10 QRSD: 90 T: 27 QT: 380 QTc: 473 Interpretive Statements Sinus rhythm Compared to ECG 06/29/2020 16:51:26 Prolonged QT interval no longer present Electronically Signed On 09-13-2020 12:53:13 BPM DEVELOPER by Eddie Harvey [email or web address] <ELECTRONICALLY SIGNED> By: Eddie Harvey MD, [facility] 09/13/20 1253 1042 1042 Eddie Harvey MD, FACC /EPI
--- NOTE | 2020-09-13 13:31 | NUR ---
YULI-DAUGHTER [facility] [phone]
[2020-09-13 16:00] VITALS: BP 128/68; BP 151/69; BP 157/58; BP 166/63
[2020-09-13 19:23] VITALS: BP 171/65
[2020-09-13 19:59] VITALS: BP 136/72
[2020-09-13 20:05] LABS: HEMATOCRIT 25.4 % (37.0-47.0); HEMOGLOBIN 7.6 gm/dL (12.0-15.0)
[2020-09-13 20:38] VITALS: BP 201/86
[2020-09-14] VITALS (9 sets, daily range): BP systolic 159–192; BP diastolic 63–92
[2020-09-14 05:55] LABS: HEMOGLOBIN 7.9 gm/dL (12.0-15.0); MCH 20.6 pg (26.0-34.0); MCHC 29.5 g/dL (28.0-37.0); PLATELET COUNT 144 thou/uL (150-400); RBC 3.85 mil/uL (4.20-5.00); WBC 4.7 thou/uL (4.0-11.0)
[2020-09-14 06:10] LABS: CALCIUM 8.9 mg/dL (8.5-10.1); MAGNESIUM 1.6 mg/dL (1.8-2.4); POTASSIUM 3.8 mmol/L (3.5-5.1)
[2020-09-14 10:13] LABS: ABSOLUTE NEUTROPHILS 2.8 thou/uL (1.4-8.2)
[2020-09-14 10:14] LABS: MICROCYTES 1+; POLYCHROMASIA SLIGHT
[2020-09-14 10:15] LABS: ANISOCYTOSIS 2+; HYPOCHROMASIA 3+
[2020-09-14 10:16] LABS: OVALOCYTES FEW
[2020-09-14 10:18] LABS: TARGET CELLS FEW
[2020-09-14 10:49] LABS: % SATURATION 5 % (20-39); IRON 22 ug/dL (50-170); TIBC 487 ug/dL (250-450)
[2020-09-14 16:16] LABS: ABSOLUTE RETIC COUNT 0.0973 10^6/uL; OBSERVED RETIC COUNT 2.63 % (0.6-2.6)
--- NOTE | 2020-09-14 16:20 | NUR ---
Case opened to follow for dc planning. Pt is alert and oriented x 4 but walker river. She indicates that she lives in a sr apt alone but has lots of support from her dtr Linda who is with her alot. She has HH services currently through [facility] and would like to use them again at co. Her pcp is Dr. Linares. She uses a rolator walker for gait and is normally able to do her adl's indep. She has support for her iadl's as needed. Dtr takes her to appts as she does not drive. She has not really left her apt for some time due to covid. She has orders for therapy evals and they are pending due to elev BP today. She notes her dtr is her dpoa/emergency contact. She is hoping to feel better and go home in a few days. C/o knee and shoulder pain from her witnessed fall at home. Cm role introduced. [facility] HH updated and they can resume at co.
--- NOTE | 2020-09-14 16:33 | NUR ---
FAXED CLINICAL UPDATES TO [facility]. CONFIRMED WITH ANDREE/INTAKE THAT THEY RECEIVED AND CAN RESUME CARE AFTER PATIENT'S DISCHARGE. [facility] P [phone]; FAX [phone]
[2020-09-14 16:46] LABS: FOLIC ACID 12.7 ng/mL (8.6-58.9)
--- NOTE | 2020-09-14 20:23 | NUR ---
PT CARE ASSUMED AT 0700. ASSESSMENTS CHARTED. MEDICATIONS CHARTED. R SC PORT. SINUS RHYTHM. BSC. ASSIT X 1. ACHS. BIPOLAR, DEPRESSION. PT EATS ALOT OF ICE.
[2020-09-15] VITALS (10 sets, daily range): BP systolic 124–192; BP diastolic 55–92
--- NOTE | 2020-09-15 05:03 | NUR ---
RECEIVED CARE OF THIS PATIENT AT 1900. PATIENT ALERT AND ORIENTED X4 BUT SOMEWHAT CONFUSED. UP TO BSC WITH SBA. IV IS A PORT IN THE UPPER R CHEST. UNABLE TO DRAW BLOOD FROM IT THIS AM. HAS NS AT 75CC/HR RUNNING. ACCUCHECK WAS 158, RECEIVED 3U LISPRO INSULIN. C/O PAIN ALL OVER. HAD FALL AT HOME ON R KNEE. R KNEE, HIP AND SHOULDER PAINFUL. XRAYS ORDERED. PATIENT SAYS SEES DAUGHTER ALL THE TIME, DAUGHTER SAYS DOES NOT SEE NOTHER EVERYDAY. TAKES MEDS WHOLE IN APPLESAUCE. SLEPT VERY LITTLE THIS SHIFT.
[2020-09-15 06:38] LABS: INR 2.1
[2020-09-15 08:37] LABS: HEMATOCRIT 27.2 % (37.0-47.0); HEMOGLOBIN 7.8 gm/dL (12.0-15.0)
[2020-09-15] MEDS ORDERED: FOLIC ACID1 MG PO (15:07)
[2020-09-15] MEDS ORDERED: B-12500 MCG PO (15:07)
--- NOTE | 2020-09-15 16:05 | NUR ---
FAXED [facility] THE DISCHARGE ORDERS/SUMMARY AND UPDATED THERAPY NOTES. WILL CONFIRM THAT THEY RECEIVED. [facility] P [phone]; FAX [phone]
--- NOTE | 2020-09-15 17:20 | NUR ---
tenative plan for home however dtr called and reports she is unable to assist her mother at home. She reports she has bronchitis getting worse and she was going to ER herself. She feels her mother would benefit from rehab. Patient agrees. She prefers 5N. request eval.
--- NOTE | 2020-09-15 17:34 | NUR ---
PT CARE ASSUMED AT O700. ASSESSMENTS CHARTED. MEDICATIONS CHARTED. RT SC PORT. BSC. ACHS. SINUS RHYTHM. AFTER CM SPOKE WITH PT AND PT'S DAUGHTER, PT WILL NOT BE DISCHARGED. INSTEAD CM PLACED A REEHAB CONSULT. PT'S DAUGHTER IS VERY ILL AND WILL NOT BE ABLE TO HELP CARE FOR PATIENT.
[2020-09-16] VITALS (7 sets, daily range): BP systolic 137–197; BP diastolic 52–86
--- NOTE | 2020-09-16 04:19 | NUR ---
ASSUMED PT CARE AT THE CHANGE OF SHIFT, PT IS AWAKE, ALERT AND ORIENTED, JENA, SR ON THE MONITOR, BP ELEVATED AT THE BEGINNING OF SHIFT, BUTTON INSPECTOR NOTIFIED, NO ORDERS RECEIVED, BLOOD PRESSURE RECHECK STABLE, DENIES HAVING CONCERNS, ASSESSMENTS CHARTED, NO ACUTE DISTRESS NOTED, PLAN IS TO DC HOME WITH HH
--- NOTE | 2020-09-16 07:21 | HC ---
[facility] [place] [address] CONSULTATION Name: KG AMARAL Room #: 218-P ADM IN ..#: [id number] Admission: 09/13/20 Attend Phys: Bryan Arcos MD Discharge: Date of : 43 Report #: [id number] THIS REPORT FOR: cc: Humble Linares MD, Stanley P. MD McKittrick, Richard James MD ~ DATE OF SERVICE: 09/15/2020 REASON FOR CONSULTATION: Iron deficiency anemia. HISTORY OF PRESENT ILLNESS: The patient is a pleasant 74-year-old female who has been in the hospital several times over the last several months and had been notably in the hospital for iron deficiency anemia in May. At that time, GI had performed an EGD and colonoscopy with the finding of gastritis and Schatzki's ring, which was dilated and internal hemorrhoids. The patient notably did not receive any IV iron or oral iron during that time. Also, discharge notes do not mention oral iron. She does not report taking iron at home. She also does not eat much beef in her diet. Note, the patient denies any blood in urine or stool. She had had some increase in fatigue and weakness recently. No unexplained fevers or chills. She did say she has a sister with leukemia who , if I understand correctly. PAST MEDICAL HISTORY: Quite complex and includes the diagnosis of the gastritis and Schatzki's ring, internal hemorrhoids. Also, history of hypertension, hyperlipidemia, diabetes type 2, GERD, bilateral DVT supposedly multiple times in the past with PEs, on chronic anticoagulation, also hypothyroidism, also history of TIAs, history of essential tremor, history of coronary artery disease, depression, bipolar disorder, history of COVID positivity in 03/2020, history of breast cancer in about 1994 with surgery by ____ with reconstruction. No chemotherapy or antihormone therapy with no evidence of recurrence. MEDICATIONS: At this time in the hospital include trazodone 150 at bedtime, pantoprazole 40 at bedtime, quetiapine 400 at bedtime, warfarin 2.5 mg daily, gabapentin 100 t.i.d., Xanax 0.5 t.i.d., quetiapine 25 mg q.4 hours p.r.n., tramadol 50 q. 12 hours p.r.n., ipratropium and albuterol respiratory therapy q. 4 hours p.r.n., lisinopril 20 daily, tamsulosin 0.4 daily, cyanocobalamin 1000 mcg daily, folic acid 1 mg daily, levothyroxine 25 mcg daily, insulin on a sliding scale, also p.r.n. Tylenol, MiraLax, Zofran and IV fluids. LABORATORY DATA: Notable for creatinine of 1.1, stable. Transaminases and liver function tests normal. LDH back in March was 240 at the time I believe the COVID positivity. Recent iron 22, low. Recent iron saturation 5, note that is unchanged from May. Note that the iron is unchanged from May also. TIBC elevated at 47. Coags on admission noted for an INR of 2 and APTT of [address] [address] CONSULTATION Name: EUNSTEPHANIEKG S Room #: 218-P [facility].#: [id number] Admission: 09/13/20 Attend Phys: Bryan Arcos MD Discharge: Date of : 43 Report #: [id number] 43.4. White count on admission 3.7, not far from baseline. Hemoglobin on admission 6.4. Note that in June when she left the hospital is 7.7. MCV when she left the hospital was 72.7 in June, admit here was 68.6. Note that back in 09/2019, her MCV was 91.6 suggesting that she is iron deficient. Platelets currently 144, they have been slightly low for about the last year in the 100-180 range. Differential nonacute. Absolute retic count decreased to 0.0973. TSH recently 0.350. Ferritin recently 7, had been 13. Folate 12.7, adequate. Vitamin B 12 is 252, adequate, I am surprised this is not high if she has been taking vitamin B12. Imaging note that the CAT scan had raised a question of a nodule or liver, at one time there is no comment from GI. PHYSICAL EXAMINATION: GENERAL: The patient appears her stated age, is slightly disheveled, but this was exam while she was sitting on the commode preparing to use it, but she gave permission to discuss her case in that situation. VITAL SIGNS: Height reported this admit 5 feet 4 inches, 162.6 cm, weight 175 pounds or 79.38 kilograms. Blood pressure 124/55, O2 sat 98, respirations 18, pulse 93, temperature 98.1. NEUROLOGIC: Face is symmetrical. Speech and thought pattern normal, but slightly slow and not as focused in some people are, but it might have been the situation. LUNGS: Clear without any rhonchi, stridor or wheezes and no difficulty. HEART: Regular rate. LYMPHATICS: No enlarged lymph nodes in the neck or the axilla. EXTREMITIES: Do not appear to have edema on visual exam. ASSESSMENT AND PLAN: 1. Iron deficiency anemia, this is probably due to past iron loss without recent iron replacement and drifting down. I agree with GI that she probably would not benefit and does not need an upper or lower endoscopy again. Says she is Hemoccult negative. I also do not see a role for capsule endoscopy. I think the main issue is that she was not on oral iron or receiving iron to replace her iron deficiency identified in May and she is on acid trevor that decreases iron absorption and does not eat much food containing oral iron. I have written for IV iron. She will probably need to be monitored in the future for iron deficiency due to poor oral intake or absorption. I doubt this is a bone marrow failure at this time, but would like to see her counts improve to prove this. Her platelets and white count appeared to be adequate. Agree with transfusion at this point also, but she has improved. 2. Hypertension, meds per others. 3. Hyperlipidemia, meds per others. 4. Diabetes type 2, meds per others. 5. History of bilateral deep venous thrombosis and pulmonary embolus, I think it is reasonable to continue anticoagulation as before. 6. Hypothyroid, continues replacement. [address] [address] CONSULTATION Name: KG AMARAL Room #: 218-P [facility] IN M.R.#: [id number] Admission: 09/13/20 Attend Phys: Bryan Arcos MD Discharge: Date of : 43 Report #: [id number] 7. Bipolar and mood disorder, continue multiple meds. 8. Psoriatic arthritis. Continues management and infusion per Dr. Ari Palmer. We will be available and follow over the weekend if she is in the hospital. <ELECTRONICALLY SIGNED> By: Kota Porras MD 09/16/20 0721 [id number] Kota Porras MD /nt
--- NOTE | 2020-09-16 14:48 | NUR ---
PT ACCEPTED TO [facility] WITH PLANNED TRANSFER TOMORROW (FRIDAY). EXPELLER WORKER HARNESS PLACER IS JOSE MANUEL Godwin [phone].
--- NOTE | 2020-09-16 16:44 | NUR ---
ASSUMED CARE OF PT AT SHIFT CHANGE. ASSESSMENT CHARTED. MEDS GIVEN PER OCT. PT A&OX4, NO C/O PAIN OR DISTRESS. PLAN FOR DISCHARGE TO [facility] TOMORROW. WILL CONTINUE TO MONITOR AND FOLLOW POC.
[2020-09-17 00:58] VITALS: BP 164/61
--- NOTE | 2020-09-17 01:17 | NUR ---
PT RESTING IN BED. TRANSFER FROM . IVF INTACT. LUNGS WITH WHEEZES. BED ALARM ON.
--- NOTE | 2020-09-17 01:30 | NUR ---
ASSUMED PT CARE AT THE CHNAGE OF SHIFT, PT IS AWAKE, ALERT AND ORIENTED, SR ON THE MONITOR, BP ELEVATED, MILLER ROD MILL NOTIFIED, ORDERS RECEIVED, MEDS GIVEN PER OCT, PAIN MEDICINE GIVEN WITH PARTIAL RELIEF, DENIES CONCERNS, ASEESSMENTS CHARTED; PT TRANSFERED TO [address] [place] [address] VIA W/C WILL ALL BELONGINGS
[2020-09-17 07:35] VITALS: BP 165/75
[2020-09-17 08:43] VITALS: BP 165/75
--- NOTE | 2020-09-17 13:55 | NUR ---
PT A&OX3-4, VSS, C/O PAIN IN BACK. ASSESSMENT COMPLETED, MEDS GIVEN ORDERED. PATIENT GIVEN TYLENOL FOR TEMP. PATIENT CALLS OUT APPROPRIATELY. NO SIGNS OF DISTRESS. ALL BELONGINGS SENT WITH PATIENT.
[2020-09-18 16:06] LABS: HGB SOLUBILITY Negative (Negative)
== END 2020-09-17 14:19 | DRG 808 ==
LOC: ER 10:13 → EROBS 14:26 → 2N 14:26 → 4W 09-17 00:57
PROVIDERS: Nurse Practitioner; ADMIT Hospitalist; ATTEND Hospitalist
PROC: 30233N1 Transfusion of Nonautologous Red Blood Cells into Peripheral Vein, Percutaneous Approach (ICD-10-PCS; principal; 2020-09-13)
DX: D61.818 Other pancytopenia (principal); G92 Toxic encephalopathy; I48.21 Permanent atrial fibrillation; K29.70 Gastritis, unspecified, without bleeding; I16.0 Hypertensive urgency; I10 Essential (primary) hypertension; F31.9 Bipolar disorder, unspecified; F41.9 Anxiety disorder, unspecified; L40.50 Arthropathic psoriasis, unspecified; I25.10 Atherosclerotic heart disease of native coronary artery without angina pectoris; E03.9 Hypothyroidism, unspecified; E78.5 Hyperlipidemia, unspecified; E11.51 Type 2 diabetes mellitus with diabetic peripheral angiopathy without gangrene; F03.90 Unspecified dementia, unspecified severity, without behavioral disturbance, psychotic disturbance, mood disturbance, and anxiety; J44.9 Chronic obstructive pulmonary disease, unspecified; I48.91 Unspecified atrial fibrillation; N19 Unspecified kidney failure; Z86.16 Personal history of COVID-19; Z20.822 Contact with and (suspected) exposure to COVID-19; Z85.3 Personal history of malignant neoplasm of breast; Z90.13 Acquired absence of bilateral breasts and nipples; Z90.49 Acquired absence of other specified parts of digestive tract; Z98.42 Cataract extraction status, left eye; Z98.41 Cataract extraction status, right eye; Z86.718 Personal history of other venous thrombosis and embolism; Z90.711 Acquired absence of uterus with remaining cervical stump; Z79.82 Long term (current) use of aspirin; Z79.899 Other long term (current) drug therapy; Z87.891 Personal history of nicotine dependence; Z86.73 Personal history of transient ischemic attack (TIA), and cerebral infarction without residual deficits; Z88.1 Allergy status to other antibiotic agents; Z88.5 Allergy status to narcotic agent; Z88.2 Allergy status to sulfonamides; Z88.8 Allergy status to other drugs, medicaments and biological substances; Z91.048 Other nonmedicinal substance allergy status; Z91.09 Other allergy status, other than to drugs and biological substances
CPT/HCPCS: 10081

== ENCOUNTER 2020-09-17 08:13 | Inpatient (IN) | payer OTHER ==
[~2020-09-17] VITALS: Ht 162.6 cm; Wt 85.7 kg
--- NOTE | ~2020-09-17 | HC ---
[facility] [place] [address] CONSULTATION Name: KG AMARAL Room #: 513-P ADM IN M.R.#: [id number] Admission: 09/17/20 Attend Phys: Gulshan Coates MD Discharge: Date of : 43 Report #: [id number] THIS REPORT FOR: cc: Humble Linares MD, Stanley P. MD Deutch,Dagoberto Mcneil. PhD ~ DATE OF SERVICE: 09/23/2020 NEUROBEHAVIORAL STATUS EXAM AGE: 74. ATTENDING PHYSICIAN: Gulshan Coates MD MEDICAL OFFICE SPECIALIST: Dagoberto Hernandez, PhD CLINICAL PRESENTATION: The patient is a 74-year-old female admitted to [facility] for admitting assessment of toxic metabolic encephalopathy. She was initially admitted to the hospital with increased weakness and noted to have a low hemoglobin. She was diagnosed with the pancytopenia and anemia along with confusion and mental status changes associated with an acute toxic encephalopathy. On her admission on the rehab unit, the assessment included a toxic metabolic encephalopathy, medical complexity with generalized debility, iron deficiency anemia, diabetes mellitus, hypertension, atrial fibrillation, renal insufficiency, history of dysphagia, status post dilation, history of breast cancer, status post double mastectomy, psoriatic arthritis, history of bilateral lower extremity venous thrombosis with pulmonary embolism, COPD, history of cerebral aneurysms and a prior history of COVID-19 in 03/2020. A complete description of her medical condition and history can be found in her medical record. Neuropsychological consultation was requested to provide assistance in the assessment of cognitive and emotional status and provide recommendations and services. Prior to this most recent admission and deterioration in her medical condition, she was living independently in her own home. She indicates that she has one daughter that lives nearby. The patient has 3 children. 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 The patient indicates worry and concern about her medical wellbeing. She indicated that she discontinued driving about 4 years ago. 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 She was independent with instrumental activities of daily living. TECHNIQUES UTILIZED: Clinical interview, review of medical records, staff [facility] [address] [place] [address] CONSULTATION Name: CRISTINKG S Room #: 513-P [facility] IN ..#: [id number] Admission: 09/17/20 Attend Phys: Gulshan Coates MD Discharge: Date of : 43 Report #: [id number] consultation and behavioral observation, mini mental status exam 2 standard version and verbal fluency assessment. EXAMINATION PROCEDURE: The patient was alert and cooperative with the assessment. She does not present with an aphasia. Her thoughts are logical and goal oriented. There is no evidence of thought disorder. She does not report auditory or visual hallucinations. She indicates having severe pain in her left shoulder and has been frustrated with difficulty in pain management. She reports her pain is getting worse. She has a chronic pain disorder. Symptoms are reported to include sleep disturbance, poor appetite, anxiety, depression, and decreased energy level. She also does not feel like her memory was good as it had been and variability in word finding is noted. Performance on the MMSE 2 brief version was 14/16. However, she is very hard of hearing and required repetition for immediate recall. She was 5/5 for orientation to time and place. She was 2/3 for immediate recall of 3 items after a brief time delay and distraction. Decreased hearing interferes with initial registration. Performance on the MMSE 2 standard version is in the borderline range, suggesting moderate deficits with a raw score of 23/30, T score of 35 percentile rank of 7. She was 1/5 for serial sevens, 2/2 for naming, 1/1 for repetition, 3/3 for auditory comprehension. She could read and follow single command and write a sentence. The patient had difficulty with copying a simple geometric design. Difficulty with clock drawing suggesting executive dysfunction is also noted. Letter fluency was in the low average range with a raw score of 17, T score of 40 percentile rank of 16. Category fluency was in the borderline range with a raw score of 27, T score of 34, percentile rank of 5. Overall, total fluency is a raw score of 44, T score of 37 percentile rank at 10. The patient is presenting with increased anxiety in regard to her medical wellbeing. Neurocognitive deficits are suggested in executive functioning along with attention/concentration. History of cerebral aneurysms is reported. Most likely this is neurocognitive deficits due to vascular disease. DIAGNOSTIC IMPRESSION: 1. 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 2. Anxiety disorder with depression. RECOMMENDATIONS: The patient will likely benefit from the use of antidepressant medicine. Verbal praise and complements along with reassurance during her rehabilitation program. Family education will be necessary. She will likely [facility] [address] [place] [address] CONSULTATION Name: KG AMARAL Room #: 3-[facility] IN M.R.#: [id number] Admission: 09/17/20 Attend Phys: Gulshan Coates MD Discharge: Date of : 43 Report #: [id number] require increased help with medical, financial and nutritional needs upon discharge. A family interview will likely provide additional help with managing activities of daily living upon discharge. Thank you very much for allowing me to provide the consultation on this patient. By: 34 Dagoberto Hernandez, PhD /nt
[~2020-09-17 08:13] MED LIST changes: +B-12500 MCG PO
[2020-09-17 14:30] VITALS: BP 176/72
--- NOTE | 2020-09-17 16:20 | NUR ---
NEW ADMISSION FROM [facility], CAME IN IN A WC ACCOMPANIED BY 2 HOSP STAFF. PT IS ALERT AND ORIENTATED. COMPLAINED OF SCALP PAIN RADIATES TO HER UPPER MID, RATES PAIN AT 7/10, REPORTS PAIN DULL AND THROBBING, DENIES ANY LIGHTHEADEDNESS, VISION CHANGES OR NAUSEA. PAIN PARTIALLY RELIEF AFTER TYELNOL AT 5/10. BP SLIGHTLY ELEVATED 172/72 DUE TO CURRENT PAIN, WILL RECHECK AFTER PT PAIN IS CONTROL. PT'S FAIRCHILD A TOTAL OF $294 SENT TO SECURITY AT 1635. ENGINEER STEAM ABDULLAHI VERIFIED THE AMOUNT AND SIGN AND SEALED THE ENVELOPE. PT SIGNED AND PT VERBALIZES UNDERSTANDING OF HER MONEY IS IN THE SECURITY BOX. PT REQUESTED TO KEEP $12 WITH HER. GLASSES AND FULL DENTURES WITH PT IN THE ROOM. NOTED REDNESS IN HER COCCYX AREA, Z GUARD APPLIED TO SITE. CONT TO MONITOR.
[2020-09-17 19:15] VITALS: BP 212/91
--- NOTE | 2020-09-18 02:36 | NUR ---
PATIENT WAS A LITTLE ANXIOUS AND FUSSY BEFORE BEDTIME. HER BP HAS BEEN UP TODAY AND SHE WAS GIVEN AMLODIPINE 10MG AROUND 1900 BY DAY NURSE. SHE IS TO START ON THIS ROUTINELY TODAY AT 0900. HER BP THIS EVENING WAS HIGH AT 212/91. PT WAS STATING THAT SHE HAS JUST NOT BEEN FEELING WELL AND THINKS THAT MOVING TO REHAB MAY HAVE HAPPENED TOO SOON. SHE HAS BEEN ON PHONE WITH HER DAUGHTER, JACEK OLSEN AND I SPOKE WITH DTR ALSO TO ANSWER QUESTIONS SHE HAD WITH PT PRESENT AND OK WITH ME ANSWERING. RECHECKED PATIENT'S BP AT 2210 AFTER HAVING AMLODIPINE IN HER SYSTEM WELL MELATONIN AND TRAZADONE, TRAMADOL, AND GABAPENTIN TO HELP HER RELAX AND BP WAS 159/60. PT STATES SHE IS ABLE TO SLEEP WELL NOW AND THE HEADACHE HAS GONE AWAY. SHE HAS BEEN SLEEPING ALL EVENING SINCE HS MEDS GIVEN. SHE WAS UP TO BSC WITH LARGE BM. DAUGHTER CALLED TO SPEAK WITH THIS NURSE TO SEE HOW HER MOM WAS DOING. PATIENT TOOK HER MEDS WHOLE WITH APPLESAUCE. HER ACCUCHECK THIS EVENING IS 151. NO INSULIN ORDERS IN PLACE. ROUTINE ROUNDS TO ASSESS SAFETY AND STATUS OF PATIENT. BED IN LOW POSITION AND BED ALARM ON. PATIENT IS ASSIST X 1 WITH GB AND WALKER.
[2020-09-18 05:50] LABS: HEMATOCRIT 24.4 % (37.0-47.0); HEMOGLOBIN 7.1 gm/dL (12.0-15.0); MCH 20.7 pg (26.0-34.0); MCV 71.3 fL (80.0-100.0); RBC 3.42 mil/uL (4.20-5.00); WBC 4.7 thou/uL (4.0-11.0)
[2020-09-18 06:11] LABS: CALCIUM 8.8 mg/dL (8.5-10.1); POTASSIUM 3.4 mmol/L (3.5-5.1)
[2020-09-18 07:15] VITALS: BP 140/57
--- NOTE | 2020-09-18 17:56 | NUR ---
ASSUMED CARE AT 0700. SLEPT OFF AND ON AND WAS CONCERNED ABOUT HER ELEVATED BP LAST NIGHT AND PAIN IN HER UPPER BACK. SHE RECEIVED BOTH TRAMADOL AND TYLENOL EARLIER IN THE SHIFT WHICH SEEMS TO BE HELPING. SHE IS ABLE TO PARTICIPATE IN THERAPIES. DR JOSE NOTIFIED OF PT'S PAIN. BP HAS BEEN BETTER CONTROL TODAY WITH ADDITIONAL AMLODIPINE TO LISINOPRIL. ON IV IRON, WILL MONITOR HGB, NO REPORTED BRUISING OR BLEEDING. APPETITE GOOD. NO BM TODAY. DIURESING ADEQ. PT CALLS APPROPRIATELY. CONTINENCE WITH BLADDER.
[2020-09-18 19:25] VITALS: BP 157/68
--- NOTE | 2020-09-19 04:30 | NUR ---
SLEEPING WELL AFTER TYLENOL AND TRAMADOL GIVEN FOR PAIN AT HS. UP TO BSC AT 0300 AND HASSTAYED AWAKE SINCE THEN. RIGHT PORTACATH ACCESS PULLED OUT BY PATIENT SHE WORKED AROUND THE EDGE OF THE DRESSING DUE TO ITCHING. REACCESSED AT THIS TIME, BUT UNABLE TO DRAW BLOOD, MESSAGE FOR IV TEAM TO CHECK BEFORE WE GIVE IV IRON
[2020-09-19 06:08] LABS: INR 1.6; MAGNESIUM 1.9 mg/dL (1.8-2.4); POTASSIUM 3.7 mmol/L (3.5-5.1)
[2020-09-19 07:55] VITALS: BP 150/56
--- NOTE | 2020-09-19 11:25 | NUR ---
ASSUMED CARE AT 0700. PATIENT IS ALERT AND ORIENTED. PATIENT IS UP TO THE BSC TO VOID DOREEN COLORED URINE. PATIENT THORPE'S, ASSOCIATE PROFESSOR OF KINESIOLOGY ARE EQUAL. LUNGS ARE CLEAR AND DEMINISHED. PORTACATH IV REPLACED. IRON STARTED IV. PATIENT C/O NAUSEA AND WAS MEDICATED WITH ZOFRAN 0DT. ABD IS SOFT WITH BSX4. PATIENT HAD BM TODAY. FALL AND SAFETY PROTOCOLS IN PLACE. C/O PAIN IN HER SHOULDER. MEDICATED WITH PRN PAIN MED. PATIENT CONTINUES TO PROGRESS SLOWLY TOWARDS D/C GOALS. WILL CONTINUE TO MONITER.
--- NOTE | 2020-09-19 13:51 | NUR ---
team meeting, reccomendation: will need asist with bills and pills. dc 09/27 h[facility] ( pt, st, nursing) with [facility].
[2020-09-19 19:50] VITALS: BP 136/62
--- NOTE | 2020-09-20 02:47 | NUR ---
ASSIST UP TO BSC FOR A FEW VOIDS UNTIL 2139, PATIENT STATES DIURETIC GIVEN STILL WORKING UNTIL THEN. ACCESSED PORTACATH INTACT AND NOT CAUSING ITCHING TODAY. APPRECIATES LEGS ELEVATED.
[2020-09-20 06:35] LABS: INR 1.6; PROTIME 16.1 Seconds (9.3-11.4)
[2020-09-20 07:30] VITALS: BP 149/54
--- NOTE | 2020-09-20 08:32 | NUR ---
ASSUMED CARE AT 0700. PATIENT IS ALERT AND ORIENTED, BUT VERY CAPITAN GRANDE BAND. PATIENT THORPE'S. JOB PLACEMENT OFFICER ARE EQUAL. LUNGS ARE CLEAR AND DEMINISHED. ABD IS SOFT WITH BSX4 PATIENT IS UP WITH ASSIST OF 1-2 STAFF TO BSC TO VOID DOREEN COLORED URINE. PATIENT HAS PORTACATH FOR IV IRON AND BLOOD DRAWS. PATIENT HAS BRUISE ON RIGHT FOOT. PATIENT HAS +1 PEDAL EDEMA IN HER LOWER EXTREMITIES. FALL AND SAFETY PROTOCOLS IN PLACE. C/O PAIN IN HER SHOULDER AND BACK. MEDICATED WITH PRN PAIN MED. CONTINUES TO PROGRESS SLOWLY TOWARDS D/C GOALS. WILL CONTINUE TO MONITER.
[2020-09-20 14:55] LABS: HEMATOCRIT 27.6 % (37.0-47.0); HEMOGLOBIN 7.8 gm/dL (12.0-15.0)
--- NOTE | 2020-09-20 15:18 | NUR ---
FAXED REFERRAL TO [facility] SPOKE WITH SUPRYIA IN INTAKE SHE CAN ACCEPT PT AT DC 09/27.
[2020-09-20 15:20] VITALS: BP 150/53
[2020-09-20 20:12] VITALS: BP 152/45
--- NOTE | 2020-09-21 02:51 | NUR ---
assumed care approx 1900 evening 09/20. pt sitting up in bed at change of shift resting. pt hard of hearing and forgetful, pleasant and cooperative. pt up to bsc multiple times tonight to void and to have bm once. pt took hs meds with applesauce tolerating well. pt now back to bed appears to be sleeping soundly. bed alarm on and call light in reach. will continue to monitor.
[2020-09-21 05:52] LABS: INR 2.1; PROTIME 21.3 Seconds (9.3-11.4)
[2020-09-21 08:00] VITALS: BP 143/54
--- NOTE | 2020-09-21 08:17 | NUR ---
ASSUMED CARE AT 0700. PATIENT IS ALERT AND ORIENTED AND FORGETFUL AT TIMES. PATIENT THORPE'S, DRY WALL FINISHER ARE EQUAL. LUNGS ARE CLEAR AND DEMINISHED. ABD IS SOFT WITH BSX4. PATIENT IS UP TO THE BSC WITH GAITBELT AND ASSIST OF 1 STAFF. PATIENT IS VOIDING DOREEN COLORED URINE. FALL AND SAFETY PROTOCOLS IN PLACE. C/O GENERALIZED PAIN. MEDICATED WITH PRN PAIN MED. CONTINUES TO PROGRESS SLOWLY TOWARDS D/C GOALS. PATIENT HAS PORTACATH FOR LAB DRAWS AND IV MEDS. WILL CONTINUE TO MONITER.
[2020-09-21 20:01] VITALS: BP 148/49
--- NOTE | 2020-09-22 00:34 | NUR ---
PT ALERT AND ORIENTED X 4. AMB TO BR WITH WALKER AND ASSIST X 1 WITHOUT DIFFICULTY. USING BSC DURING THE NIGHT. UP TO BSC FREQUENTLY. XANAX AND MELATONIN GIVEN AT 2331 PER PT REQUEST FOR SLEEP. PT C/O GENERALIZED PAIN. SCHEDULED TYLENOL GIVEN AT HS. PT APPEARS TO BE SLEEPING AT THIS TIME. BED ALARM ON FOR SAFETY.
[2020-09-22 08:00] VITALS: BP 152/60
[2020-09-22 08:12] LABS: INR 2.9; PROTIME 29.4 Seconds (9.3-11.4)
[2020-09-22 10:28] LABS: HEMATOCRIT 27.4 % (37.0-47.0); HEMOGLOBIN 8.1 gm/dL (12.0-15.0); MCH 22.1 pg (26.0-34.0); MCHC 29.6 g/dL (28.0-37.0); MCV 74.8 fL (80.0-100.0); PLATELET COUNT 184 thou/uL (150-400); RBC 3.67 mil/uL (4.20-5.00); RDW 24.3 % (10.5-14.5); WBC 4.9 thou/uL (4.0-11.0)
[2020-09-22 13:18] LABS: ABSOLUTE NEUTROPHILS 1.6 thou/uL (1.4-8.2); ATYPICAL LYMPHS 3 %
[2020-09-22 13:20] LABS: ANISOCYTOSIS 3+
[2020-09-22 13:22] LABS: HYPOCHROMASIA 2+; MICROCYTES 2+
[2020-09-22 13:24] LABS: MACROCYTES FEW
--- NOTE | 2020-09-22 15:00 | NUR ---
ASSUMED CARE AT 0700. SLEPT OFF AND ON, MAIN ISSUE WAS PAIN IN HER BACK OF HER NECK. RATES PAIN AT 8/10, TYELNOL AND TRAMADOL WITH LIDOCAINE GIVEN. DENIES ANY LIGHTHEADEDNESS, DIZZY OR NAUSEA. HAD A BM TODAY. APPETITE FAIRLY GOOD. PT NOT HAPPY WITH CHANGE OF THIN LIQUID TO NECTAR. PARTICIPATED WITH THERAPY AND PROGRESSING SLOWLY TOWARDS GOAL. CONT TO MONITOR.
[2020-09-22 20:00] VITALS: BP 157/83
--- NOTE | 2020-09-23 05:19 | NUR ---
CARE ASSUMED 1900. PT ALERT AND ORIENTED. LUNG SOUNDS CLEAR. EDEMA OF +1 TO THE LE AND ANKLES. 2/2 PULSE. DENIES NAUSEA . VOMITING OR DIARREA. DENIES CHEST PAIN OR DISCOMFORT. BP 105/68 LAST NIGHT, BP MEDS HELD. NO OTHER CONCERNS. WILL CONTINUE TO MONITOR.
[2020-09-23 06:19] LABS: INR 3.3; PROTIME 33.5 Seconds (9.3-11.4)
--- NOTE | 2020-09-23 13:51 | NUR ---
ASSUMED CARE AT 0700. ALERT AND ORIENTATED. REPORTED PAIN MAINLY IN THE BACK OF NECK. MEDICATED WITH TRAMADOL AND TYLENOL WITH PARTIAL RELIEF. DENIES ANY SELF OR LIGHTHEADEDNESS. UP FOR ALL MEALS, TOLERATES HER MEALS WITH NECTAR THICK LIQ. CONTINENCE OF BLADDER AND BOWEL. PARTICIPATES IN THERAPY.
[2020-09-23 19:38] VITALS: BP 144/59
--- NOTE | 2020-09-23 21:26 | NUR ---
VASCULAR ACCESS NURSE ROUNDING. THIS PATIENT IS NO LONGER GETTING IV MEDS AND NO LONGER NEEDS IV ACCESS. SUGGEST DE-ACCESSING THE PORT TO DECREASE RISK OF BLOOD STREAM INFECTION
--- NOTE | 2020-09-24 02:52 | NUR ---
assumed care approx 1900 evening 09/23. pt lying in bed dozing off and on at change of shift. pt awoke to take hs meds with applesauce tolerating well. pt up to bsc to void. pt appears to be sleeping soundly with hourly rounding. bed alarm on and call light in reach. will continue to monitor.
[2020-09-24 08:32] LABS: INR 2.6; PROTIME 26.5 Seconds (9.3-11.4)
[2020-09-24 08:39] VITALS: BP 136/52
--- NOTE | 2020-09-24 10:09 | NUR ---
ASSUMED CARE AT 0700. PATIENT IS ALERT AND ORIENTED X4. PATIENT THORPE'S, RAIL CAR DRIVER ARE EQUAL. LUNGS ARE CLEAR AND DEMINISHED. ABD IS SOFT WITH BSX4. PATIENT HAS PORTACATH ON HER RIGHT CHEST. IV TEAM CALLED, PORTACATH WON'T DRAW BLOOD. UP TO THE BSC TO VOID DOREEN COLORED URINE. FALL AND SAFETY PROTOCOLS IN PLACE C/O BACK AND NECK PAIN . MEDICATED WITH PRN PAIN MED. PATIENT IS UP WITH ASSIST OF 1 STAFF AND GAIT BELT. PATIENT CONTINUES TO PROGRESS SLOWLY TOWARDS D/C GOALS. WILL CONTINUE TO MONITER.
--- NOTE | 2020-09-24 11:10 | NUR ---
IV TEAM HERE. PORTACATH FLUSED WITH NS 10 CC. PATIENT WAS ASKED TO ROTATE HER HEAD TO THE LEFT THEN THE RIGHT AND IV NURSE WAS ABLE TO DRAW BLOOD FROM THE PORT. PLAN NEEDLE CHANGE IN A.M. VS DEACTIVATION. PLAN LAB DRAW BY NOC [place] IN A.M. HGB>8.0. PROTIME 26.5/2.5 INR TODAY. WILL SEE OF LAB DRAWS CAN BE STOPPED IN A.M. WILL CONTINUE TO MONITER.
--- NOTE | 2020-09-24 11:38 | NUR ---
VASCULAR ACCESS NURSE ROUNDING. DR. MICHELE OK WITH PORT DE-ACCESS. NOTIFIED BY STAFF THE PORT HAS NO BLOOD RETURN AND CATHFLO NEEDED. ON ASSESSMENT PORT NEEDLE WNL AND +BLOOD RETURN- LINE IS POSITIONAL, BUT DOES HAVE BLOOD RETURN WITH REPOSITIONING OF THE HEAD. NO CATHFLO NEEDED. SPOKE TO THE PATIENTS NURSE AND PATIENT. PATIENT IS REFUSING DE-ACCESS OF LINE UNTIL AFTER LAB DRAW IN AM. WE WILL RETURN IN AM AND IF NO IRON OR IVF ARE ORDERED LINE WILL BE DE-ACCESSED BY THE VAT TO PREVENT POSSIBLE BLOOD STREAM INFECTION.
[2020-09-24 20:36] VITALS: BP 130/51
--- NOTE | 2020-09-24 22:27 | NUR ---
1900 CONTINUE PLAN OF CARE. NO CHANGES NOTED. WILL CONTINUE TO MONITER. UP TO THE BSC TO VOID AND HAVE BM.
--- NOTE | 2020-09-25 01:30 | NUR ---
PATIENT UP TO BSC FOR VOIDING WITH ONE PERSON ASSIST. PAIN IN HEAD RADIATING TO SHOULDERS MUCH DECREASED, SCHEDULED TYLENOL IN THE AM. PLEASANT. RIGHT UPPER CHEST PORTACATH IS ACCESSED WITH PLAN FOR LAB DRAW THIS MORNING.
[2020-09-25 07:40] LABS: PROTIME 20.6 Seconds (9.3-11.4)
[2020-09-25 08:00] VITALS: BP 146/60
--- NOTE | 2020-09-25 14:50 | NUR ---
ASSUMED CARE AT 0700. PATIENT IS ALERT AND ORIENTED X4. PATIENT IS [place]. PATIENT IS UP TO THE BSC TO VOID DOREEN COLORED URINE. PATIENT IS UP IN THE CHAIR FOR BREAKFAST. PATIENT HAS MYRA HOSE ON. FALL AND SAFETY PROTOCOLS IN PLACE. C/O NECK AND BACK PAIN. MEDICATED WITH PRN PAIN MEDS AND LIDOCAINE PATCH. CONTINUES TO PROGRESS SLOWLY TOWARDS D/C GOALS. WILL CONTINUE TO MONITER.
[2020-09-25 19:40] VITALS: BP 129/58
--- NOTE | 2020-09-26 03:17 | NUR ---
CALLS APPROPRIATLY TO USE BSC AND OCCASSIONALLY TOILET WITH ASSIST OF ONE. ACCESSED PORTACATH INTACT, PATIENT AWARE OF PLAN TO DEACSESS TOMORROW MORNING AFTER LAB CHECKED. PATIENT SLEEPING NOW, SHE WANTED MULTIPLE PAIN MEDS WITH XANAX AND MELATONIN AT HS. REMOVED HER OWN MYRA HOSE AT HS AND ASKED FOR THEM TO BE WASHED AND RINSED, THEY WERE RUNG OUT TO DRY AND ARE HANGING ON THE SHOWER ARTEM IN THE BATHROOM.
[2020-09-26 07:15] VITALS: BP 126/48
--- NOTE | 2020-09-26 09:23 | NUR ---
ASSUMED CARE AT 0700. PT. UP IN CHAIR FOR BREAKFAST. SHE IS PLEASANT AND COOPERATIVE WITH ASSESSMENT. ASSESSMENT UNREMARKABLE. SHE DID STATE SHE HAS NOT HAD A BM SINCE FRIDAY. SHE ASKED FOR AND RECEIVED TRAMADOL FOR PAIN IN BACK AND ALL OVER HER BODY. SHE USED THE COMMODE AFTER BREAKFAST.
--- NOTE | 2020-09-26 12:52 | NUR ---
team meeting, reccomendation: repeat cxr prior to dc on 10th. vital stim with st. dc 10th [facility] (pt, st and nursing). "daughter going to stay with her a few days after she is home per kristi". will need transportation home that will get her into the home.
--- NOTE | 2020-09-26 16:32 | NUR ---
PT TO DC TOMORROW TO HOME NEEDS TRANSPORT ARRANGED TRANSPORT WITH [facility] FOR 10:30 AM FRIDAY.
[2020-09-26 19:43] VITALS: BP 153/76
--- NOTE | 2020-09-27 04:30 | NUR ---
Assumed pt care at 1900. A/OX4, VSS. C/o lower back pain, medicated with Tramadol per request with relief reported. Up w/AX1,GB to BSC. Right chest port patent. Fall precautions in place,calls approp for help. Will continue to monitor pt.
[2020-09-27 06:45] LABS: ABSOLUTE NEUTROPHILS 1.5 thou/uL (1.4-8.2); BASOPHILS 0.8 % (0.0-2.0); EOSINOPHILS 2.4 % (0.0-3.0); HEMATOCRIT 30.1 % (37.0-47.0); LYMPHOCYTES 57.2 % (24.0-44.0); MCH 23.1 pg (26.0-34.0); MCV 76.9 fL (80.0-100.0); MONOCYTES 5.6 % (1.0-8.0); PLATELET COUNT 146 thou/uL (150-400); RBC 3.91 mil/uL (4.20-5.00); RDW 27.7 % (10.5-14.5); WBC 4.3 thou/uL (4.0-11.0)
[2020-09-27 07:03] LABS: CALCIUM 9.5 mg/dL (8.5-10.1); CREATININE 1.1 mg/dL (0.6-1.0); MAGNESIUM 1.9 mg/dL (1.8-2.4); POTASSIUM 3.7 mmol/L (3.5-5.1)
[2020-09-27 07:04] LABS: INR 2.1; PROTIME 21.3 Seconds (9.3-11.4)
[2020-09-27 08:00] VITALS: BP 145/67
--- NOTE | 2020-09-27 08:17 | NUR ---
cm notified by bedside nurse that pt has cxr, and other procedure/test before she can have transportation pick her up today for dc home. transportation time to be moved back.
--- NOTE | 2020-09-27 08:18 | NUR ---
ASSUMED CARE AT 0700. PATIENT IS ALERT AND ORIENTED X4. PATIENT THORPE'S, DICE MAKER ARE EQUAL. LUNGS ARE CLEAR AND DEMINISHED. ABD IS SOFT WITH BSX4. PATIENT IS UP TO THE BSC TO VOID DOREEN COLORED URINE. S.T. HERE TO SEE PATIENT PRIOR TO D/C TODAY. FALL AND SAFETY PROTOCOLS IN PLACE. C/O BACK AND NECK PAIN. MEDICATED WITH PRN PAIN MED AND LIDOCAINE PATCH. CONTINUES TO PROGRESS TOWARDS D/C GOALS. WILL CONTINUE TO MONITER. PATIENT HAS PORTACATH THAT HAS TO BE DEACTIVATED PRIOR TO D/C.
[2020-09-27] MEDS ORDERED: VITAMIN D325 MC1 PO ×2 (09:14→11:16)
[2020-09-27] MEDS ORDERED: LASIX 20 MG TAB20 MG PO ×4 (09:14→11:16)
[2020-09-27 09:36] VITALS: BP 150/53
[2020-09-27] MEDS ORDERED: FOLIC ACID1 MG PO ×3 (09:46→12:40)
[2020-09-27] MEDS ORDERED: B-12500 MCG PO ×2 (09:46→11:16)
[2020-09-27] MEDS ORDERED: LISINOPRIL20 MG PO ×2 (09:46→11:16)
[2020-09-27] MEDS ORDERED: NORVASC10 MG PO ×2 (09:51→11:16)
[2020-09-27] MEDS ORDERED: ZOFRAN ODT4 MG PO ×2 (10:09→12:51)
[2020-09-27 11:36] VITALS: BP 150/53
--- NOTE | 2020-09-27 14:47 | NUR ---
1400 DISCHARGE INSTRUCTIONS GIVEN TO PATIENT. MEDS FILLED AT THE OUT PT PHARMACY AT [facility]. PATIENT LEFT UNIT WITH ALL OF HER BELONGINGS AND MEDS PER W/C PROVIDED BY [facility].
--- NOTE | 2020-09-29 08:50 | PLAN ---
[facility] [place] [address] REHAB UNIT PLAN OF CARE Name: KG AMARAL Room #: 513-P DIS IN M.R.#: [id number] Admission: 09/17/20 Attend Phys: Gulshan Coates MD Discharge: 09/27/20 Date of : 41 Report #: [id number] THIS REPORT FOR: cc: Humble Linares MD, Stanley P. MD Smithson,Gulshan Griffin MD ~ DATE OF SERVICE: 09/20/2020 PROGRESS NOTE/OVERALL PLAN OF CARE SUBJECTIVE: The patient is seen back today in followup. She is in no distress. Temperature 36.9, pulse 80, respirations 20, blood pressure 150/53. She is alert, motivated, feels that she is making progress. Transfers are contact guard with gait 85 feet contact guard with the front-wheeled walker. In occupational therapy lower body dressing is moderate assistance, upper body dressing is supervision. She is on a mechanical soft, thin liquid diet. Speech therapy notes that she does have moderate cognitive deficits with severe memory deficits. ASSESSMENT: 1. Toxic metabolic encephalopathy. 2. Medical complexity with generalized debilitation. 3. Iron deficiency anemia. 4. Diabetes mellitus. 5. Hypertension. 6. Atrial fibrillation. 7. Renal insufficiency. 8. History of dysphagia, status post dilatation. 9. History of breast cancer, status post double mastectomy. 10. Psoriatic arthritis. 11. 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 12. Chronic obstructive pulmonary disease. 13. History of cerebral aneurysm. 14. History of positive COVID on 04/06/2020. PLAN: The overall plan of care is based on the preadmission screen and information garnered from therapy assessments. 1. Estimated length of stay, plan is for the patient to be discharged next Friday on 09/27/2020. 2. Medical prognosis is reasonably good. 3. Anticipated interventions includes the interdisciplinary acute inpatient rehabilitation program. 4. Anticipated functional outcomes would be for the patient to further improve as far as transfers, gait mobility, ADLs and cognition, so that she can return [address] [address] REHAB UNIT PLAN OF CARE Name: KG AMARAL Room #: 513-P [facility] IN ..#: [id number] Admission: 09/17/20 Attend Phys: Gulshan Coates MD Discharge: 09/27/20 Date of : 41 Report #: [id number] back to the home setting. 5. Discharge destination would be back to the home setting where she lives in an apartment. There is a daughter that checks in on her. 6. Expected therapy by discipline includes PT, OT and speech 1 hour per day each five days a week throughout the duration of the acute inpatient rehabilitation stay. <ELECTRONICALLY SIGNED> By: Gulshan Coates MD 09/29/20 0850 [id number] [id number] Gulshan Coates MD /nt
--- NOTE | 2020-09-29 08:50 | H ---
[facility] [place] [address] HISTORY AND PHYSICAL Name: KG AMARAL Room #: 513-P [facility] IN .R.#: [id number] Admission: 09/17/20 Attend Phys: Gulshan Coates MD Discharge: 09/27/20 Date of : 41 Report #: [id number] THIS REPORT FOR: cc: Humble Linares MD, Stanley P. MD Smithson, David G. MD ~ DATE OF SERVICE: 09/17/2020 HISTORY AND PHYSICAL/POST ADMISSION PHYSICIAN EVALUATION HISTORY OF PRESENT ILLNESS: The patient is a 74-year-old white female originally admitted to [facility] on 09/13/2020 with increased weakness. She was noted to have a hemoglobin of 6.4. She was diagnosed with pancytopenia and anemia. She had confusion and mental status changes and was also diagnosed with acute toxic encephalopathy. She had a recent EGD on 05/2020 revealing a Schatzki's ring and mild gastritis and Gastroenterology did not feel that a followup EGD was indicated at this time. Hematology has been involved and she has been diagnosed with iron deficiency anemia and being given iron IV. With the mental status and cognitive changes and overall generalized weakness and debilitation she has had a significant functional decline from her premorbid status. She has now been admitted for acute in-hospital inpatient rehabilitation. PAST MEDICAL HISTORY: Includes hypertension, diabetes mellitus, bilateral lower extremity DVT with PE, bipolar, fibromyalgia, history of essential tremor, and coronary artery disease. There is a note of some dementia, history of breast cancer without recurrence and psoriatic arthritis. MEDICATIONS: Please see the full medication listing. ALLERGIES: SHE HAS MULTIPLE ALLERGIES, PLEASE SEE THE LISTING. HABITS: Positive history of tobacco in the past. No history of alcohol abuse. SOCIAL HISTORY: Lives in an apartment, uses a four-wheeled walker. There is a daughter that lives 10 minutes away and checks in on her frequently. Daughter does not work and apparently is disabled and is able to assist the patient. The patient notes her daughter is with her much of the time. REVIEW OF SYSTEMS: The patient has had some prior issues with incontinence of her bladder. Denies any current chest pain, shortness of breath, or abdominal discomfort. PHYSICAL EXAMINATION: GENERAL: The patient is a 74-year-old white female in no obvious distress. [address] [address] HISTORY AND PHYSICAL Name: KG AMARAL Room #: 513-P [facility] IN .R.#: [id number] Admission: 09/17/20 Attend Phys: Gulshan Coates MD Discharge: 09/27/20 Date of : 41 Report #: [id number] VITAL SIGNS: Last recorded temperature 98.8, pulse 104, respirations 18, and blood pressure 212/91. NEUROLOGIC: She is alert. She has some posterior neck discomfort and has a history of fibromyalgia. Facies appeared symmetric. She is pleasant, alert, and appropriate. CHEST: Sounded clear to auscultation. CARDIOVASCULAR: Regular rate and rhythm. ABDOMEN: Bowel sounds positive, nontender. GENITOURINARY/RECTAL: Deferred. EXTREMITIES: Functional range of motion of the upper extremities no obvious focal spasm noted. In her lower extremities; she has functional range of motion, strength is probably a grade 3+ to 4-/5. No focal calf swelling. She is transferring standby assistance and was ambulating short distance standby assistance. ASSESSMENT: A 74-year-old white female with the following problems: 1. Toxic metabolic encephalopathy, appears to be improving. 2. Medical complexity with generalized debilitation. 3. Iron deficiency anemia. Hemoglobin today is 7.1 followed by GI and Hematology. 4. Diabetes mellitus. 5. Hypertension. 6. Atrial fibrillation. 7. Renal insufficiency. 8. History of dysphagia, status post dilatation. 9. History of breast cancer, status post double mastectomy. 10. Psoriatic arthritis. 11. 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 12. Chronic obstructive pulmonary disease. 13. History of cerebral aneurysms. 14. Prior history of positive COVID on 03/2020. PLAN: The patient has been admitted for acute in-hospital inpatient rehabilitation. Please see the patient's previous and current functional status. As far as risk of complications, this includes the multiple medical comorbidities as noted above. Initial plan of care involves the interdisciplinary acute inpatient rehabilitation program. Prognosis is reasonably good with estimated length of stay probably at least 10 days to 2 weeks. Potential barriers would include her multiple medical comorbidities and decreased functional status. The patient meets diagnostic criteria for an acute in-hospital inpatient rehabilitation stay. She meets the medical necessity criteria and we will have [address] [address] HISTORY AND PHYSICAL Name: CRISTINKG S Room #: 513-P [facility] IN .R.#: [id number] Admission: 09/17/20 Attend Phys: Gulshan Coates MD Discharge: 09/27/20 Date of : 41 Report #: [id number] the medical social consultant physicians continue to follow. She does have the tolerance for therapies and has appropriate discharge goals back to the home setting. <ELECTRONICALLY SIGNED> By: Gulshan Coates MD 09/29/20 0850 1228 [id number] Gulshan Coates MD /nt
== END 2020-09-27 15:22 | disposition home health service (06) | DRG 93 ==
PROVIDERS: Nurse Practitioner; ADMIT Physical Medicine & Rehabilitation; ATTEND Physical Medicine & Rehabilitation
DX: G92 Toxic encephalopathy (principal); R53.81 Other malaise; D50.9 Iron deficiency anemia, unspecified; I48.91 Unspecified atrial fibrillation; J44.9 Chronic obstructive pulmonary disease, unspecified; L40.50 Arthropathic psoriasis, unspecified; I10 Essential (primary) hypertension; R41.9 Unspecified symptoms and signs involving cognitive functions and awareness; F41.9 Anxiety disorder, unspecified; F03.90 Unspecified dementia, unspecified severity, without behavioral disturbance, psychotic disturbance, mood disturbance, and anxiety; E03.9 Hypothyroidism, unspecified; M19.90 Unspecified osteoarthritis, unspecified site; N19 Unspecified kidney failure; F32.9 Major depressive disorder, single episode, unspecified; E11.51 Type 2 diabetes mellitus with diabetic peripheral angiopathy without gangrene; Z86.16 Personal history of COVID-19; Z88.6 Allergy status to analgesic agent; Z86.718 Personal history of other venous thrombosis and embolism; Z85.3 Personal history of malignant neoplasm of breast; Z86.711 Personal history of pulmonary embolism; Z79.01 Long term (current) use of anticoagulants; Z90.13 Acquired absence of bilateral breasts and nipples; Z86.73 Personal history of transient ischemic attack (TIA), and cerebral infarction without residual deficits; Z90.49 Acquired absence of other specified parts of digestive tract; Z98.42 Cataract extraction status, left eye; Z98.41 Cataract extraction status, right eye; Z90.711 Acquired absence of uterus with remaining cervical stump; Z86.14 Personal history of Methicillin resistant Staphylococcus aureus infection; Z88.1 Allergy status to other antibiotic agents; Z88.0 Allergy status to penicillin; Z88.2 Allergy status to sulfonamides; Z88.8 Allergy status to other drugs, medicaments and biological substances; Z87.891 Personal history of nicotine dependence; Z79.899 Other long term (current) drug therapy
CPT/HCPCS: 10112